=== PATIENT | female | born 1965 | race Caucasian/White ===

== ENCOUNTER → 2017-03-06 | Outpatient (CLI) | payer MEDICARE, MEDICAID ==
[~2017-03-06] MED LIST: ALPR1T PO; ALPR2TAB6 PO; ASPI-983 PO; CLIN300C3 PO; ENAL20TA PO; ENLP10T; ENLP10T PO; FRSM40T PO; GABA-490 PO; GBPN600T; HSCO125 SL; HYDR-3458 PO; HYOS0.127 SL; KCL20TCR PO; LEVO50TA PO; LEVOTHROID; MUPI22OI2 NSEACH; OMEP20TA2 PO; OXYC-109 PO; OXYC-197 PO; OXYC-465 PO; OXYC10TA8; OXYC10TA8 PO; OXYC1TAB17 PO; PANT40SU PO; PANT40TA PO; POLY255P PO; PSYL1PAC15 PO; RPN.25T; SCR1T PO; SCR1T1 PO; SUCR1TAB PO; SULF-222 PO; TOPI50TA13 PO; TOPI50TA2 PO
[2017-03-06 13:31] LABS: BASOPHILS % (AUTO) 0 % (0-10); EOSINOPHILS # (AUTO) 0.1 10^3/uL (0.0-0.3); EOSINOPHILS % (AUTO) 2 % (0-10); LYMPHOCYTES # (AUTO) 0.9 X 10^3 (1.0-4.0); LYMPHOCYTES % (AUTO) 31 % (12-44); MEAN CORPUSCULAR HEMOGLOBIN 33 PG (25-34); MEAN CORPUSCULAR HGB CONC 34 G/DL (32-36); MEAN CORPUSCULAR VOLUME 100 FL (80-99); MEAN PLATELET VOLUME 10.6 FL (7.4-10.4); MONOCYTES # (AUTO) 0.1 X 10^3 (0.0-1.0); MONOCYTES % (AUTO) 4 % (0-12); NEUTROPHILS # (AUTO) 1.8 X 10^3 (1.8-7.8); NEUTROPHILS % (AUTO) 63 % (42-75); PLATELET COUNT 170 10^3/uL (130-400); RED BLOOD COUNT 3.69 10^6/uL (4.35-5.85); RED CELL DISTRIBUTION WIDTH 13.2 % (10.0-14.5); WHITE BLOOD COUNT 2.9 10^3/uL (4.3-11.0)
[2017-03-06 13:54] LABS: ALANINE AMINOTRANSFERASE 16 U/L (0-55); ALBUMIN 3.8 G/DL (3.2-4.5); ANION GAP 6 MMOL/L (5-14); ASPARTATE AMINO TRANSFERASE 20 U/L (5-34); BILIRUBIN,TOTAL 0.5 MG/DL (0.1-1.0); BLOOD UREA NITROGEN 7 MG/DL (7-18); BUN/CREATININE RATIO 9; CALCIUM 8.6 MG/DL (8.5-10.1); CARBON DIOXIDE 23 MMOL/L (21-32); CHLORIDE 113 MMOL/L (98-107); CREATININE SERUM 0.78 MG/DL (0.60-1.30); GFR ESTIMATED > 60; GLUCOSE 106 MG/DL (70-105); POTASSIUM 3.8 MMOL/L (3.6-5.0); SODIUM 142 MMOL/L (135-145); TOTAL PROTEIN 6.4 G/DL (6.4-8.2)
[2017-03-06 14:13] LABS: THYROID STIMULATING HORMONE 4.74 UIU/ML (0.35-4.94)
== END ==
LOC: LAB 12:48
PROVIDERS: ATTEND Family Medicine
DX: E03.9 Hypothyroidism, unspecified (principal); T14.8 Other injury of unspecified body region
CPT/HCPCS: 36415; 80053; 82607; 84443; 85025

== ENCOUNTER → 2017-03-14 | Outpatient (CLI) | payer MEDICARE, MEDICAID ==
[2017-03-14 12:17] LABS: BASOPHILS % (AUTO) 1 % (0-10); EOSINOPHILS # (AUTO) 0.1 10^3/uL (0.0-0.3); EOSINOPHILS % (AUTO) 4 % (0-10); LYMPHOCYTES # (AUTO) 1.5 X 10^3 (1.0-4.0); LYMPHOCYTES % (AUTO) 46 % (12-44); MEAN CORPUSCULAR HEMOGLOBIN 32 PG (25-34); MEAN CORPUSCULAR HGB CONC 32 G/DL (32-36); MEAN CORPUSCULAR VOLUME 101 FL (80-99); MEAN PLATELET VOLUME 10.1 FL (7.4-10.4); MONOCYTES # (AUTO) 0.2 X 10^3 (0.0-1.0); MONOCYTES % (AUTO) 7 % (0-12); NEUTROPHILS # (AUTO) 1.4 X 10^3 (1.8-7.8); NEUTROPHILS % (AUTO) 42 % (42-75); PLATELET COUNT 176 10^3/uL (130-400); RED BLOOD COUNT 3.82 10^6/uL (4.35-5.85); RED CELL DISTRIBUTION WIDTH 13.2 % (10.0-14.5); WHITE BLOOD COUNT 3.3 10^3/uL (4.3-11.0)
== END ==
LOC: LAB 12:00
PROVIDERS: ATTEND Family Medicine
DX: D72.819 Decreased white blood cell count, unspecified (principal)
CPT/HCPCS: 36415; 85025

== ENCOUNTER 2017-04-16 10:57 | Outpatient (RCR) | payer MEDICARE, MEDICAID ==
[2017-04-16 11:06] LABS: BASOPHILS % (AUTO) 0 % (0-10); EOSINOPHILS # (AUTO) 0.1 10^3/uL (0.0-0.3); EOSINOPHILS % (AUTO) 2 % (0-10); LYMPHOCYTES # (AUTO) 1.4 X 10^3 (1.0-4.0); LYMPHOCYTES % (AUTO) 41 % (12-44); MEAN CORPUSCULAR HEMOGLOBIN 33 PG (25-34); MEAN CORPUSCULAR HGB CONC 32 G/DL (32-36); MEAN CORPUSCULAR VOLUME 101 FL (80-99); MEAN PLATELET VOLUME 9.6 FL (7.4-10.4); MONOCYTES # (AUTO) 0.2 X 10^3 (0.0-1.0); MONOCYTES % (AUTO) 5 % (0-12); NEUTROPHILS # (AUTO) 1.8 X 10^3 (1.8-7.8); NEUTROPHILS % (AUTO) 51 % (42-75); PLATELET COUNT 191 10^3/uL (130-400); RED CELL DISTRIBUTION WIDTH 13.5 % (10.0-14.5); WHITE BLOOD COUNT 3.6 10^3/uL (4.3-11.0)
[2017-04-16 11:36] LABS: ALANINE AMINOTRANSFERASE 20 U/L (0-55); ALBUMIN 3.9 GM/DL (3.2-4.5); ANION GAP 8 MMOL/L (5-14); ASPARTATE AMINO TRANSFERASE 22 U/L (5-34); BILIRUBIN,TOTAL 0.5 MG/DL (0.1-1.0); BLOOD UREA NITROGEN 9 MG/DL (7-18); BUN/CREATININE RATIO 11; CARBON DIOXIDE 22 MMOL/L (21-32); CHLORIDE 109 MMOL/L (98-107); CREATININE SERUM 0.83 MG/DL (0.60-1.30); GFR ESTIMATED > 60; GLUCOSE 91 MG/DL (70-105); LACTATE DEHYDROGENASE 161 U/L (125-220); POTASSIUM 4.3 MMOL/L (3.6-5.0); SODIUM 139 MMOL/L (135-145)
== END 2017-06-29 | disposition home or self-care (01) ==
LOC: ONC 10:57
PROVIDERS: ATTEND Internal Medicine Hematology & Oncology
DX: C85.95 Non-Hodgkin lymphoma, unspecified, lymph nodes of inguinal region and lower limb (principal); R53.82 Chronic fatigue, unspecified; B19.20 Unspecified viral hepatitis C without hepatic coma; E66.01 Morbid (severe) obesity due to excess calories; Z68.42 Body mass index [BMI] 45.0-49.9, adult; Z98.84 Bariatric surgery status; Z92.21 Personal history of antineoplastic chemotherapy
CPT/HCPCS: 36415; 80053; 83615; 85025; 99213

== ENCOUNTER → 2017-04-25 | Outpatient (CLI) | payer MEDICARE, MEDICAID ==
--- NOTE | 2017-04-25 14:47 | Diagnostic Imaging Report ---
PROCEDURE: MR imaging cervical spine without contrast. TECHNIQUE: Multiplanar, multisequence MR imaging of the cervical spine was performed without contrast. INDICATION: Neck pain. Fall. FINDINGS: There is straightening of the cervical spine. This could be related to muscle spasm. Alignment of the posterior spinal line otherwise is unremarkable. The vertebral body heights are preserved. There is disc desiccation at multiple levels. There is mild disc height loss at C5/C6 level. The spinal cord has normal caliber, contour and signal. No significant marrow signal abnormality. The foramen magnum and upper cervical canal are widely patent. C2/C3: There is a mild right paracentral disc spur complex with no spinal canal or foraminal stenosis. C3/C4: There is a central small spur disc complex with no spinal canal or foraminal stenosis. C4/C5: There is a minimal spur disc complex with no spinal canal or foraminal stenosis. C5/C6: There is a prominent disc spur complex associated with mild central canal stenosis reducing the eccentric canal AP dimension to 8.4 mm without spinal cord compression. The foramina are patent. There are, however, perineural cysts measuring 6 mm on the right and 4 mm on the left. C6/C7: No disc herniation. No spinal canal stenosis or foraminal narrowing. There are bilateral perineural cysts measuring up to 6 mm. C7/T1: No disc herniation. No spinal canal or foraminal stenosis. There are prominent perineural cysts at this level bilaterally measuring 1 cm within the neural foramina. IMPRESSION: There is mild spinal canal stenosis at C5/C6 level secondary to disc degenerative change. Dictated by: Dictated on workstation # [id number]
== END ==
LOC: RAD 08:18
PROVIDERS: ATTEND Family Medicine
DX: M50.322 Other cervical disc degeneration at C5-C6 level (principal); G89.4 Chronic pain syndrome
CPT/HCPCS: 72141

== ENCOUNTER → 2017-08-27 | Outpatient (CLI) | payer MEDICARE, MEDICAID ==
[2017-08-27 15:00] LABS: BASOPHILS % (AUTO) 1 % (0-10); EOSINOPHILS # (AUTO) 0.1 10^3/uL (0.0-0.3); EOSINOPHILS % (AUTO) 3 % (0-10); LYMPHOCYTES # (AUTO) 0.9 X 10^3 (1.0-4.0); LYMPHOCYTES % (AUTO) 30 % (12-44); MEAN CORPUSCULAR HEMOGLOBIN 33 PG (25-34); MEAN CORPUSCULAR HGB CONC 32 G/DL (32-36); MEAN CORPUSCULAR VOLUME 102 FL (80-99); MEAN PLATELET VOLUME 9.5 FL (7.4-10.4); MONOCYTES # (AUTO) 0.1 X 10^3 (0.0-1.0); MONOCYTES % (AUTO) 5 % (0-12); NEUTROPHILS # (AUTO) 1.8 X 10^3 (1.8-7.8); NEUTROPHILS % (AUTO) 62 % (42-75); PLATELET COUNT 182 10^3/uL (130-400); RED BLOOD COUNT 3.78 10^6/uL (4.35-5.85); RED CELL DISTRIBUTION WIDTH 12.9 % (10.0-14.5); WHITE BLOOD COUNT 2.9 10^3/uL (4.3-11.0)
[2017-08-27 15:16] LABS: ALANINE AMINOTRANSFERASE 21 U/L (0-55); ALBUMIN 3.7 GM/DL (3.2-4.5); ANION GAP 5 MMOL/L (5-14); ASPARTATE AMINO TRANSFERASE 25 U/L (5-34); BILIRUBIN,TOTAL 0.4 MG/DL (0.1-1.0); BLOOD UREA NITROGEN 13 MG/DL (7-18); BUN/CREATININE RATIO 16; CALCIUM 8.8 MG/DL (8.5-10.1); CARBON DIOXIDE 24 MMOL/L (21-32); CHLORIDE 110 MMOL/L (98-107); CREATININE SERUM 0.81 MG/DL (0.60-1.30); GFR ESTIMATED > 60; GLUCOSE 103 MG/DL (70-105); POTASSIUM 4.4 MMOL/L (3.6-5.0); SODIUM 139 MMOL/L (135-145); TOTAL PROTEIN 6.7 GM/DL (6.4-8.2)
[2017-08-28 07:08] LABS: VITAMIN D 25-HYDROXY (TOTAL) 34 ng/mL (30-100)
--- NOTE | 2017-08-28 18:23 | Diagnostic Imaging Report ---
Bilateral screening mammogram 2D views with tomosynthesis. The current study was also evaluated with a Computer Aided Detection (CAD) system. INDICATION: Screening. No current complaints stated on the questionnaire. COMPARISON: 06/15/15 FINDINGS: The breasts are composed of scattered fibroglandular densities. Occasional benign-appearing calcifications are seen. Allowing for technique and positional differences, no suspicious change is seen. IMPRESSION: No significant change. ACR BI-RADS Category 2: Benign findings. Result letter will be mailed to the patient. Note: At least 10% of breast cancer is not imaged by mammography. Dictated by: Dictated on workstation # [id number]
== END ==
LOC: RAD 14:22
PROVIDERS: ATTEND Family Medicine
DX: Z12.31 Encounter for screening mammogram for malignant neoplasm of breast (principal)
CPT/HCPCS: 36415; 77067; 80053; 82306; 82607; 84443; 85025

== ENCOUNTER 2017-10-28 13:47 | Outpatient (RCR) | payer MEDICARE, MEDICAID ==
[2017-10-28 14:15] LABS: BASOPHILS % (AUTO) 0 % (0-10); EOSINOPHILS # (AUTO) 0.1 10^3/uL (0.0-0.3); EOSINOPHILS % (AUTO) 1 % (0-10); HEMATOCRIT 41 % (35-52); HEMOGLOBIN 13.7 G/DL (11.5-16.0); LYMPHOCYTES # (AUTO) 1.2 X 10^3 (1.0-4.0); LYMPHOCYTES % (AUTO) 23 % (12-44); MEAN CORPUSCULAR HEMOGLOBIN 33 PG (25-34); MEAN CORPUSCULAR HGB CONC 34 G/DL (32-36); MEAN CORPUSCULAR VOLUME 97 FL (80-99); MEAN PLATELET VOLUME 9.6 FL (7.4-10.4); MONOCYTES # (AUTO) 0.2 X 10^3 (0.0-1.0); MONOCYTES % (AUTO) 4 % (0-12); NEUTROPHILS # (AUTO) 3.9 X 10^3 (1.8-7.8); NEUTROPHILS % (AUTO) 72 % (42-75); PLATELET COUNT 313 10^3/uL (130-400); RED BLOOD COUNT 4.16 10^6/uL (4.35-5.85); RED CELL DISTRIBUTION WIDTH 11.6 % (10.0-14.5); WHITE BLOOD COUNT 5.4 10^3/uL (4.3-11.0)
[2017-10-28 14:39] LABS: ALANINE AMINOTRANSFERASE 31 U/L (0-55); ALBUMIN 3.9 GM/DL (3.2-4.5); ALKALINE PHOSPHATASE 94 U/L (40-136); BILIRUBIN,TOTAL 0.5 MG/DL (0.1-1.0); BUN/CREATININE RATIO 22; CALCIUM 9.2 MG/DL (8.5-10.1); CARBON DIOXIDE 25 MMOL/L (21-32); CHLORIDE 104 MMOL/L (98-107); CREATININE SERUM 0.73 MG/DL (0.60-1.30); GFR ESTIMATED > 60; GLUCOSE 89 MG/DL (70-105); POTASSIUM 3.3 MMOL/L (3.6-5.0); SODIUM 139 MMOL/L (135-145); TOTAL PROTEIN 7.6 GM/DL (6.4-8.2)
== END 2018-01-26 | disposition home or self-care (01) ==
LOC: ONC 13:47
PROVIDERS: ATTEND Internal Medicine Hematology & Oncology
DX: C82.50 Diffuse follicle center lymphoma, unspecified site (principal); N92.0 Excessive and frequent menstruation with regular cycle; E66.01 Morbid (severe) obesity due to excess calories; R53.81 Other malaise; Z98.84 Bariatric surgery status; Z92.21 Personal history of antineoplastic chemotherapy; Z86.19 Personal history of other infectious and parasitic diseases
CPT/HCPCS: 36415; 80053; 85025; 99213

== ENCOUNTER → 2017-11-13 | Outpatient (CLI) | payer MEDICARE, MEDICAID ==
[2017-11-13 08:58] LABS: ALANINE AMINOTRANSFERASE 28 U/L (0-55); ALBUMIN 3.5 GM/DL (3.2-4.5); ALKALINE PHOSPHATASE 73 U/L (40-136); BILIRUBIN,TOTAL 0.6 MG/DL (0.1-1.0); BUN/CREATININE RATIO 10; CALCIUM 9.2 MG/DL (8.5-10.1); CARBON DIOXIDE 19 MMOL/L (21-32); CHLORIDE 112 MMOL/L (98-107); CHOLESTEROL 161 MG/DL (< 200); GFR ESTIMATED > 60; GLUCOSE 85 MG/DL (70-105); HDL CHOLESTEROL 80 MG/DL (40-60); POTASSIUM 3.8 MMOL/L (3.6-5.0); SODIUM 139 MMOL/L (135-145); TOTAL PROTEIN 6.7 GM/DL (6.4-8.2); TRIGLYCERIDES 66 MG/DL (<150); VLDL CHOLESTEROL 13 MG/DL (5-40)
== END ==
LOC: LAB 08:23
PROVIDERS: ATTEND Internal Medicine Cardiovascular Disease
DX: E78.2 Mixed hyperlipidemia (principal); I25.10 Atherosclerotic heart disease of native coronary artery without angina pectoris; I51.7 Cardiomegaly; I34.0 Nonrheumatic mitral (valve) insufficiency; C85.90 Non-Hodgkin lymphoma, unspecified, unspecified site; R79.89 Other specified abnormal findings of blood chemistry
CPT/HCPCS: 36415; 80053; 80061

== ENCOUNTER → 2017-12-02 | Outpatient (CLI) | payer MEDICARE, MEDICAID | LOC: LAB 08:41 | PROVIDERS: ATTEND Family Medicine | DX: E05.80 Other thyrotoxicosis without thyrotoxic crisis or storm (principal); E06.3 Autoimmune thyroiditis | CPT/HCPCS: 36415; 84436; 84443; 84481 ==

== ENCOUNTER → 2017-12-16 | Outpatient (CLI) | payer MEDICARE, MEDICAID | LOC: CARD 09:05 | PROVIDERS: ATTEND Nurse Practitioner Family | DX: R07.89 Other chest pain (principal) | CPT/HCPCS: 93005 ==

== ENCOUNTER 2018-03-19 12:47 | Outpatient (CLI) | payer MEDICARE, MEDICAID ==
[2018-03-19 13:54] LABS: BASOPHILS % (AUTO) 0 % (0-10); EOSINOPHILS # (AUTO) 0.1 10^3/uL (0.0-0.3); EOSINOPHILS % (AUTO) 3 % (0-10); HEMATOCRIT 39 % (35-52); HEMOGLOBIN 13.1 G/DL (11.5-16.0); LYMPHOCYTES # (AUTO) 1.6 X 10^3 (1.0-4.0); LYMPHOCYTES % (AUTO) 39 % (12-44); MEAN CORPUSCULAR HEMOGLOBIN 33 PG (25-34); MEAN CORPUSCULAR HGB CONC 33 G/DL (32-36); MEAN CORPUSCULAR VOLUME 97 FL (80-99); MONOCYTES # (AUTO) 0.3 X 10^3 (0.0-1.0); MONOCYTES % (AUTO) 7 % (0-12); NEUTROPHILS % (AUTO) 50 % (42-75); PLATELET COUNT 224 10^3/uL (130-400); RED BLOOD COUNT 4.03 10^6/uL (4.35-5.85); RED CELL DISTRIBUTION WIDTH 12.3 % (10.0-14.5)
[2018-03-19 14:12] LABS: ALANINE AMINOTRANSFERASE 49 U/L (0-55); ALBUMIN 4.1 GM/DL (3.2-4.5); ALKALINE PHOSPHATASE 95 U/L (40-136); BILIRUBIN,TOTAL 0.5 MG/DL (0.1-1.0); BUN/CREATININE RATIO 14; CALCIUM 9.2 MG/DL (8.5-10.1); CARBON DIOXIDE 22 MMOL/L (21-32); CHLORIDE 110 MMOL/L (98-107); CREATININE SERUM 0.95 MG/DL (0.60-1.30); GFR ESTIMATED > 60; GLUCOSE 77 MG/DL (70-105); POTASSIUM 4.1 MMOL/L (3.6-5.0); SODIUM 140 MMOL/L (135-145)
== END 2018-03-19 15:20 ==
LOC: ONC 12:47
PROVIDERS: ATTEND Internal Medicine Hematology & Oncology
DX: C82.50 Diffuse follicle center lymphoma, unspecified site (principal); N92.0 Excessive and frequent menstruation with regular cycle; E03.9 Hypothyroidism, unspecified; R53.81 Other malaise; E78.5 Hyperlipidemia, unspecified; I08.1 Rheumatic disorders of both mitral and tricuspid valves; E66.01 Morbid (severe) obesity due to excess calories; Z68.32 Body mass index [BMI] 32.0-32.9, adult; Z98.84 Bariatric surgery status; Z92.21 Personal history of antineoplastic chemotherapy; Z86.19 Personal history of other infectious and parasitic diseases
CPT/HCPCS: 36415; 80053; 85025; 99213

== ENCOUNTER → 2018-03-21 | Outpatient (CLI) | payer MEDICARE, MEDICAID ==
[~2018-03-21] MED LIST changes: +BARIUM SUSPENSION 2.1% (VANILLA SILQ) 450 ML PO ONE; +CATHETER FLUSH 10 ML SYR IV PRN; +IOHEXOL 350 MG/ML 100 ML (OMNIPAQUE 350) VIAL IV ONE; +NS 100 ML (IVPB) BAG IV ONE
--- NOTE | 2018-03-21 12:49 | Diagnostic Imaging Report ---
PROCEDURE: CT chest with contrast, CT abdomen and pelvis with and without contrast. TECHNIQUE: Pre and post intravenous contrast axial imaging of the abdomen and pelvis and postcontrast axial imaging of the chest were performed. INDICATION: Non-Hodgkin's lymphoma. Patient currently complains of palpable bumps in the right upper and left lower quadrant of the abdomen. COMPARISON: Comparison is made with prior CT from 03/25/2014 of the chest, abdomen, and pelvis as well as CT abdomen from 05/07/2016. CT CHEST: No axillary lymphadenopathy is identified. No mediastinal or hilar lymphadenopathy is identified. Ascending thoracic aorta is slightly prominent measuring 3.9 cm AP x 3.7 cm transverse. This compares with approximately 3.7 cm x 3.6 cm on prior. No pericardial or pleural fluid is identified. No pulmonary infiltrates, nodules, or masses are seen. IMPRESSION: Overall stable CT of the chest when compared with examination from 03/25/2014. CT ABDOMEN AND PELVIS: No discrete liver mass is identified. Intrahepatic and extrahepatic bile ducts are prominent. The extrahepatic duct at the level of the pancreatic head measures 16 mm transverse compared with 14 mm on prior. No definite obstructing lesion is seen. The pancreas and spleen are unremarkable. No adrenal mass is detected. The kidneys are unremarkable. The aorta is nonaneurysmal. No definite central retroperitoneal or mesenteric lymphadenopathy is seen. There are postsurgical changes in the region of the stomach. Small and large bowel loops are normal in caliber. No obstruction is seen. There is no ascites. Moderate stool in the colon is noted. The bladder and uterus are unremarkable. Small lymph nodes in the inguinal regions are noted bilaterally. No iliac lymphadenopathy is seen. IMPRESSION: 1. There continues to be intrahepatic and extrahepatic biliary ductal dilatation. The degree of extrahepatic dilatation has increased slightly since the exam from April 2016 and February 2014. Extrahepatic bile duct is 16 mm compared with 14 mm. MRCP may be useful for further evaluation if clinically indicated. Remainder of the study is unremarkable. No abdominal or pelvic lymphadenopathy is seen. No acute features are detected. Dictated by: Dictated on workstation # [id number]
== END ==
LOC: RAD 11:13
PROVIDERS: ATTEND Internal Medicine Hematology & Oncology
DX: C85.90 Non-Hodgkin lymphoma, unspecified, unspecified site (principal); K83.8 Other specified diseases of biliary tract
CPT/HCPCS: 71260; 74178

== ENCOUNTER 2018-03-24 14:40 | Outpatient (RCR) | payer MEDICARE, MEDICAID ==
[~2018-03-24 14:40] MED LIST changes: -BARIUM SUSPENSION 2.1% (VANILLA SILQ) 450 ML PO ONE; -CATHETER FLUSH 10 ML SYR IV PRN; -IOHEXOL 350 MG/ML 100 ML (OMNIPAQUE 350) VIAL IV ONE; -NS 100 ML (IVPB) BAG IV ONE; -OXYC-197 PO; +OXYC1TAB87 PO
[2018-04-07] MEDS ORDERED: LEVO175T5 PO (11:31)
[2018-04-07] MEDS ORDERED: ASPI-586 PO (11:31)
[2018-04-07] MEDS ORDERED: PANT40TA3 PO (11:31)
[2018-04-07] MEDS ORDERED: MULT-1021 PO (11:35)
[2018-04-07] MEDS ORDERED: OXYC10TA7 PO (11:35)
[2018-04-07] MEDS ORDERED: CHOL10003 PO (11:35)
[2018-04-07] MEDS ORDERED: CYAN50006 SL (11:35)
[2018-04-07] MEDS ORDERED: OXYC1TAB12 PO (12:57)
[2018-04-14] MEDS ORDERED: OXYC-465 PO (13:47)
[2018-04-15] MEDS ORDERED: OXYC-465 PO (07:12)
[2018-04-16] MEDS ORDERED: CYCL10TA9 PO (18:10)
== END 2018-06-22 | disposition home or self-care (01) ==
LOC: ONC 14:40
PROVIDERS: ATTEND Internal Medicine Hematology & Oncology
DX: C82.50 Diffuse follicle center lymphoma, unspecified site (principal); E66.01 Morbid (severe) obesity due to excess calories; Z92.21 Personal history of antineoplastic chemotherapy; K82.8 Other specified diseases of gallbladder; I10 Essential (primary) hypertension; K64.4 Residual hemorrhoidal skin tags; K64.8 Other hemorrhoids; E03.9 Hypothyroidism, unspecified; R53.82 Chronic fatigue, unspecified; N92.0 Excessive and frequent menstruation with regular cycle; Z98.84 Bariatric surgery status; Z86.19 Personal history of other infectious and parasitic diseases
CPT/HCPCS: 99213

== ENCOUNTER 2018-03-27 10:28 | Outpatient (RCR) | payer MEDICARE, MEDICAID ==
[~2018-03-27 10:28] MED LIST changes: +OXYC-197 PO; -OXYC1TAB87 PO
[2018-04-07] MEDS ORDERED: LEVO175T5 PO (11:31)
[2018-04-07] MEDS ORDERED: ASPI-586 PO (11:31)
[2018-04-07] MEDS ORDERED: PANT40TA3 PO (11:31)
[2018-04-07] MEDS ORDERED: CYAN50006 SL (11:35)
[2018-04-07] MEDS ORDERED: MULT-1021 PO (11:35)
[2018-04-07] MEDS ORDERED: CHOL10003 PO (11:35)
[2018-04-07] MEDS ORDERED: OXYC10TA7 PO (11:35)
[2018-04-07] MEDS ORDERED: OXYC-202 PO (12:57)
[2018-04-15] MEDS ORDERED: OXYC-465 PO (07:12)
[2018-04-16] MEDS ORDERED: CYCL10TA9 PO (18:10)
== END 2018-04-10 13:30 | disposition home or self-care (01) ==
PROVIDERS: ATTEND Physician Assistant
DX: M54.12 Radiculopathy, cervical region (principal)

== ENCOUNTER 2018-04-07 11:07 | Outpatient (CLI) | payer MEDICARE, MEDICAID ==
[~2018-04-07] VITALS: Ht 175.3 cm; Wt 104.8 kg
[2018-04-07 11:24] VITALS: BP 104/72
[2018-04-07] MEDS ORDERED: PANT40TA3 PO (11:31)
[2018-04-07] MEDS ORDERED: ASPI-586 PO (11:31)
[2018-04-07] MEDS ORDERED: LEVO175T5 PO (11:31)
[2018-04-07] MEDS ORDERED: MULT-1021 PO (11:35)
[2018-04-07] MEDS ORDERED: CYAN50006 SL (11:35)
[2018-04-07] MEDS ORDERED: OXYC10TA7 PO (11:35)
[2018-04-07] MEDS ORDERED: CHOL10003 PO (11:35)
[2018-04-07] MEDS ORDERED: OXYC-202 PO (12:57)
== END 2018-04-07 11:50 | disposition home or self-care (01) ==
LOC: PREOP 11:07
PROVIDERS: ATTEND Orthopaedic Surgery
DX: Z01.818 Encounter for other preprocedural examination (principal); Z11.2 Encounter for screening for other bacterial diseases
CPT/HCPCS: 87081

== ENCOUNTER → 2018-04-10 | Outpatient (CLI) | payer MEDICARE, MEDICAID ==
[~2018-04-10] MED LIST changes: +ASPI-586 PO; +CHOL10003 PO; +CYAN50006 SL; +CYCL10TA9 PO; +LEVO175T5 PO; +MULT-1021 PO; +OXYC-202 PO; +OXYC10TA7 PO; +PANT40TA3 PO
--- NOTE | 2018-04-10 16:02 | Diagnostic Imaging Report ---
INDICATION: Screening for osteoporosis. EXAMINATION: DEXA scan. COMPARISON: There are no recent exams available for comparison. FINDINGS: The bone mineral density of the hips and spine was measured. The T-score for the spine is -1.6. The T-score for the left hip is -1.5. These values do indicate osteopenia. The T-score for the right hip is -0.9. This value falls at the low end of normal. IMPRESSION: The bone mineral density of the right hip is within normal limits but there is osteopenia of the left hip and spine. Dictated by: Dictated on workstation # [id number]
== END ==
LOC: RAD 08:46
PROVIDERS: ATTEND Internal Medicine Endocrinology, Diabetes & Metabolism
DX: Z13.820 Encounter for screening for osteoporosis (principal); M85.88 Other specified disorders of bone density and structure, other site; Z78.0 Asymptomatic menopausal state
CPT/HCPCS: 77080

== ENCOUNTER 2018-04-14 10:00 | Inpatient (IN) | payer MEDICARE, MEDICAID ==
[~2018-04-14] VITALS: Ht 175.3 cm; Wt 104.8 kg
[~2018-04-14 10:00] MED LIST changes: -CYCL10TA9 PO
[2018-04-14 10:10] VITALS: BP 128/85
[2018-04-14] MEDS ORDERED: LACTATED RINGERS 1,000 ML IV PRN (10:21)
[2018-04-14] MEDS ORDERED: BACITRACIN 100,000 UNIT/NS 1000 ML POUR BOTTLE IR ONE ×2 (10:30)
[2018-04-14] MEDS ORDERED: ceFAZolin 2 GM IV Premixed 50 ML IV ONE (10:30)
[2018-04-14] MEDS ORDERED: proPOfol 200 MG/20 ML (DIPRIVAN) VIAL IV ONE (10:43)
[2018-04-14] MEDS ORDERED: ONDANSETRON 4 MG/2 ML (SDV) Z0FRAN ONE (10:43)
[2018-04-14] MEDS ORDERED: ROCURONIUM 10 MG/ML 5 ML SYRINGE IV ONE (10:43)
[2018-04-14] MEDS ORDERED: SUCCINYLCHOLINE INJ 100 MG/5 ML SYR ONE (10:43)
[2018-04-14] MEDS ORDERED: DEXAMETHASONE 10 MG/ML (DECADRON) 1 ML VIAL ONE (10:43)
[2018-04-14] MEDS ORDERED: HYDROmorphone 1 MG/ML (DILAUDID) 1 ML SYRINGE ONE ×3 (10:44→12:56)
[2018-04-14] MEDS ORDERED: CATHETER FLUSH 10 ML SYR IV PRN (10:45)
[2018-04-14] MEDS ORDERED: MIDAZOLAM 2 MG/2 ML (VERSED) VIAL ONE (10:47)
[2018-04-14] MEDS ORDERED: PROPOFOL INJECTION 50 ML IV ONE (10:53)
[2018-04-14 10:58] LABS: AMPHETAMINE SCREEN, URINE NEGATIVE (NEGATIVE); BARBITURATE SCREEN URINE NEGATIVE (NEGATIVE); BENZODIAZEPINES SCREEN URINE POSITIVE (NEGATIVE); CANNABINOID SCREEN, URINE NEGATIVE (NEGATIVE); COCAINE SCREEN URINE NEGATIVE (NEGATIVE); METHADONE STAT NEGATIVE (NEGATIVE); METHAMPHETAMINE SCREEN URINE S NEGATIVE (NEGATIVE); OPIATE SCREEN URINE NEGATIVE (NEGATIVE); OXYCODONE STAT POSITIVE (NEGATIVE); TRICYCLIC ANTIDEPRESSANTS SCRE NEGATIVE (NEGATIVE)
[2018-04-14 10:59] LABS: PROPOXYPHENE STAT NEGATIVE (NEGATIVE)
[2018-04-14] MEDS ORDERED: SEVOFLURANE (ULTANE) 15 ML INHAL SOLN ONE ×2 (11:03→12:12)
[2018-04-14] MEDS ORDERED: LIDOCAINE JELLY 2% (XYLOCAINE) 5 ML TUBE ONE (11:13)
[2018-04-14 12:00] VITALS: BP 121/59
[2018-04-14] MEDS ORDERED: BISACODYL 5 MG (DULCOLAX) TABLET PO PRN (12:30)
[2018-04-14] MEDS ORDERED: DOCUSATE SODIUM 100 MG (COLACE) CAP PO PRN (12:30)
[2018-04-14] MEDS ORDERED: ONDANSETRON 4 MG/2 ML (SDV) Z0FRAN IV PRN (12:30)
[2018-04-14] MEDS ORDERED: ACETAMINOPHEN 325 MG TABLET PO PRN (12:30)
[2018-04-14] MEDS ORDERED: BISACODYL 10 MG SUPP (DULCOLAX) PR PRN (12:30)
[2018-04-14] MEDS: HYDROmorphone 1 MG/ML (DILAUDID) 1 ML SYRINGE IV PRN ×4 (12:38→13:08)
--- NOTE | 2018-04-14 12:38 | Diagnostic Imaging Report ---
Indication: Cervical spine fusion. Fluoroscopy was provided in the OR for Dr. Liz for ACDF. 7 seconds of fluoroscopy was utilized. Images demonstrate anterior plate and screws transfixing the C5-6 level. Impression: Fluoroscopy for C5-6 ACDF. Dictated by: Dictated on workstation # [id number]
[2018-04-14] MEDS ORDERED: MEPERIDINE (DEMEROL) INJ 50 MG/ML IVP PRN (12:45)
[2018-04-14] MEDS ORDERED: ONDANSETRON 4 MG/2 ML (SDV) Z0FRAN IVP PRN (12:45)
[2018-04-14] MEDS ORDERED: OXYC-465 PO (13:47)
[2018-04-14] MEDS: morphine INJ 10 MG/ML 1ML (SYR OR VIAL) IM PRN ×3 (13:57→20:48)
[2018-04-14] MEDS: CYCLOBENZAPRINE 10 MG (FLEXERIL) TAB PO PRN ×2 (13:58→22:12)
[2018-04-14] MEDS: oxyCODONE/APAP 5/325MG (PERCOCET 5) TABLET PO PRN ×3 (13:58→23:36)
--- OUTSIDE RECORDS SUMMARY | 2018-04-14 13:58 | XMS REPORT | Clinical Summary ---
Author Author [facility] Organization [facility] Address Unknown Phone Unavailable Care Team Providers [employer] Supervisor Name Role Phone Sarmad Mann RN Unavailable Ankit Marlow MD PCP Source Comments Some departments are not documenting in the electronic medical record. If you do not see the information that you expected, contact Release of Information in the Health Information Management department at [phone] for further assistance in locating additional records.[facility] Allergies Active Allergy Reactions Severity Noted Date Comments Fentanyl HEADACHE Low 12/11/2016 Current Medications Prescription Sig. Disp. Refills Start End Date Status Date oxyCODONE/acetaminophen Take 1 tablet by mouth Active (PERCOCET; ENDOCET) every 6 hours as needed 10/325 mg tablet for Pain gabapentin (NEURONTIN) Take 400 mg by mouth Active 400 mg capsule every 8 hours. ALPRAZolam(+) (XANAX) 2 Take 2 mg by mouth at Active mg tablet bedtime as needed for Anxiety. CALCIUM CARBONATE Take 400 mg by mouth. Active (CALCIUM 500 PO) pantoprazole DR Take 40 mg by mouth Active (PROTONIX) 40 mg tablet daily. aspirin 81 mg chewable Chew 81 mg by mouth Active tablet daily. Take with food. levothyroxine (SYNTHROID) Take 88 mcg by mouth Active 88 mcg tablet daily 30 minutes before breakfast. furosemide (LASIX) 40 mg Take 40 mg by mouth every Active tablet morning. potassium chloride SR Take 20 mEq by mouth Active (K-DUR) 20 mEq tablet daily. Take with a meal and a full glass of water. polyethylene glycol 3350 Take 17 g by mouth daily. Active (MIRALAX) 17 g packet MULTIVITAMINS WITH Take by mouth. Active FLUORIDE (MULTI-VITAMIN PO) cholecalciferol (VITAMIN Take 1,000 Units by mouth Active D-3) 1,000 units tablet daily. cyanocobalamin(+) Take 100 mcg by mouth Active (VITAMIN B-12) 100 mcg daily. tablet Active Problems No known active problems Social History Tobacco Use Types Packs/Day Years Used Date Never Smoker Smokeless Tobacco: Never Used Sex Assigned at Date Recorded Not on file Last Filed Vital Signs Vital Sign Reading Time Taken Blood Pressure 114/82 06/25/2017 8:53 AM CDT Pulse 62 06/25/2017 8:53 AM CDT Temperature - - Respiratory Rate - - Oxygen Saturation 99% 06/25/2017 8:53 AM CDT Inhaled Oxygen - - Concentration Weight 92.5 kg (204 lb) 06/25/2017 8:53 AM CDT Height 170.2 cm (5' 7") 06/25/2017 8:53 AM CDT Body Mass Index 31.95 06/25/2017 8:53 AM CDT Plan of Treatment Health Maintenance Due Date Last Done Comments PHYSICAL (COMPREHENSIVE) 1972 EXAM PERTUSSIS VACCINE 1976 HIV SCREENING 1980 TETANUS VACCINE 1982 CERVICAL CANCER SCREENING 12/24/1995 BREAST CANCER SCREENING 2005 COLORECTAL CANCER 12/24/2015 SCREENING SHINGLES RECOMBINANT 12/24/2015 VACCINE (1 of 2) INFLUENZA VACCINE 06/30/2018 07/21/2004 Results Not on filefrom Last 3 Months
--- OUTSIDE RECORDS SUMMARY | 2018-04-14 14:01 | XMS REPORT | Continuity of Care Document ---
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 THYROID NODULE 08/08/2016 OANH CHANDLER MD Ot I10 ESSENTIAL (PRIMARY) HYPERTENSION 08/08/2016 OANH CHANDLER MD Ot M51.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 DISC DEGENERATION, 08/08/2016 OANH CHANDLER MD Ot M79.7 FIBROMYALGIA 08/08/2016 OANH CHANDLER MD Ot Z23 ENCOUNTER FOR IMMUNIZATION 08/08/2016 OANH CHANDLER MD Ot Z87.891 PERSONAL HISTORY OF NICOTINE DEPENDENCE 08/08/2016 OANH CHANDLER MD Ot Z92.21 PERSONAL HISTORY OF ANTINEOPLASTIC CHEMO 08/08/2016 OANH CHANDLER MD Ot Z98.84 BARIATRIC SURGERY STATUS 08/08/2016 OANH CHANDLER MD Ot B19.20 UNSPECIFIED VIRAL HEPATITIS C WITHOUT HE 08/08/2016 OANH CHANDLER MD Ot 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, UNSPECIFIED 08/08/2016 OANH CHANDLER MD Ot E04.1 NONTOXIC SINGLE THYROID NODULE 08/08/2016 OANH CHANDLER MD Ot I10 ESSENTIAL (PRIMARY) HYPERTENSION 08/08/2016 OANH CHANDLER MD Ot M51.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 DISC DEGENERATION, 08/08/2016 OANH CHANDLER MD Ot M79.7 FIBROMYALGIA 08/08/2016 OANH CHANDLER MD Ot Z23 ENCOUNTER FOR IMMUNIZATION 08/08/2016 OANH CHANDLER MD Ot Z87.891 PERSONAL HISTORY OF NICOTINE DEPENDENCE 08/08/2016 OANH CHANDLER MD Ot Z92.21 PERSONAL HISTORY OF ANTINEOPLASTIC CHEMO 08/08/2016 ONAH CHANDLER MD, Ot Z98.84 BARIATRIC SURGERY STATUS 08/11/2016 OANH CHANDLER MD, Ot B19.20 UNSPECIFIED VIRAL HEPATITIS C WITHOUT HE 08/11/2016 OANH CHANDLER MD, Ot 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, UNSPECIFIED 08/11/2016 OANH CHANDLER MD, Ot E04.1 NONTOXIC SINGLE THYROID NODULE 08/11/2016 OANH CHANDLER MD Ot I10 ESSENTIAL (PRIMARY) HYPERTENSION 08/11/2016 OANH CHANDLER MD, Ot M51.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 DISC DEGENERATION, 08/11/2016 OANH CHANDLER MD, Ot M79.7 FIBROMYALGIA 08/11/2016 OANH CHANDLER MD, Ot Z23 ENCOUNTER FOR IMMUNIZATION 08/11/2016 OANH CHANDLER MD, Ot Z87.891 PERSONAL HISTORY OF NICOTINE DEPENDENCE 08/11/2016 OANH CHANDLER MD, Ot Z92.21 PERSONAL HISTORY OF ANTINEOPLASTIC CHEMO 08/11/2016 OANH CHANDLER MD, Ot Z98.84 BARIATRIC SURGERY STATUS 08/17/2016 WILL JEFFERS COATING OPERATOR Ot B19.20 UNSPECIFIED VIRAL HEPATITIS C WITHOUT HE 08/28/2016 WILL JEFFERS COATING OPERATOR Ot B19.20 UNSPECIFIED VIRAL HEPATITIS C WITHOUT HE 09/11/2016 HUEY DOTSON, STEPAN Knowles Ot R00.2 PALPITATIONS 09/11/2016 KIMMIE PALMER MD, Ot B19.20 UNSPECIFIED VIRAL HEPATITIS C WITHOUT HE 09/11/2016 KIMMIE PALMER MD, Ot 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, UNSP, NODES OF ING RE 09/11/2016 KIMMIE PALMER MD, Ot E66.01 MORBID (SEVERE) OBESITY DUE TO EXCESS CA 09/11/2016 KIMMIE PALMER MD Ot R53.82 CHRONIC FATIGUE, UNSPECIFIED 09/11/2016 KIMMIE PALMER MD, Ot Z68.42 BODY MASS INDEX (BMI) 45.0-49.9, ADULT 09/11/2016 KIMMIE PALMER MD, Ot Z92.21 PERSONAL HISTORY OF ANTINEOPLASTIC CHEMO 09/11/2016 KIMMIE PALMER MD, Ot Z98.84 BARIATRIC SURGERY STATUS 09/11/2016 HOLLEY DOTSON, PRIYA Waller Ot E86.0 DEHYDRATION 09/11/2016 PRIYA BABB MD Ot E89.0 POSTPROCEDURAL HYPOTHYROIDISM 09/11/2016 PRIYA BABB MD Ot I25.10 ATHSCL HEART DISEASE OF [place] CORONARY 09/11/2016 PRIYA BABB MD Ot I95.9 HYPOTENSION, UNSPECIFIED 09/11/2016 PRIYA BABB MD Ot R07.89 OTHER CHEST PAIN 09/11/2016 PRIYA BABB MD Ot Z79.899 OTHER [facility] (CURRENT) DRUG THERAPY 10/10/2016 PRIYA BABB MD Ot E86.0 DEHYDRATION 10/10/2016 PRIYA BABB MD Ot E89.0 POSTPROCEDURAL HYPOTHYROIDISM 10/10/2016 PRIYA BABB MD Ot I25.10 ATHSCL HEART DISEASE OF [place] CORONARY 10/10/2016 PRIYA BABB MD Ot I95.9 HYPOTENSION, UNSPECIFIED 10/10/2016 PRIYA BABB MD Ot R07.89 OTHER CHEST PAIN 10/10/2016 PRIYA BABB MD Ot Z79.899 OTHER EMR TRAINER (CURRENT) DRUG THERAPY 10/17/2016 PRIYA BABB MD Ot E86.0 DEHYDRATION 10/17/2016 PRIYA BABB MD Ot E89.0 POSTPROCEDURAL HYPOTHYROIDISM 10/17/2016 PRIYA BABB MD Ot I25.10 ATHSCL HEART DISEASE OF [place] CORONARY 10/17/2016 PRIYA BABB MD Ot I95.9 HYPOTENSION, UNSPECIFIED 10/17/2016 PRIYA BABB MD Ot R07.89 OTHER CHEST PAIN 10/17/2016 PRIYA BABB MD Ot Z79.899 OTHER EMR TRAINER (CURRENT) DRUG THERAPY 03/06/2017 STEPAN ARZATE MD R Ot E03.9 HYPOTHYROIDISM, UNSPECIFIED 03/08/2017 STEPAN ARZATE MD R Ot E03.9 HYPOTHYROIDISM, UNSPECIFIED 03/15/2017 STEPAN ARZATE MD R Ot D72.819 DECREASED WHITE BLOOD CELL COUNT, UNSPEC 03/26/2017 STEPAN ARZATE MD R Ot E03.9 HYPOTHYROIDISM, UNSPECIFIED 03/26/2017 STEPAN ARZATE MD R Ot T14.8 OTHER INJURY OF UNSPECIFIED BODY REGION 04/04/2017 STEPAN ARZATE MD R Ot D72.819 DECREASED WHITE BLOOD CELL COUNT, UNSPEC 04/05/2017 STEPAN ARZATE MD Ot E03.9 HYPOTHYROIDISM, UNSPECIFIED 04/05/2017 STEPAN ARZATE MD Ot T14.8 OTHER INJURY OF UNSPECIFIED BODY REGION 04/12/2017 STEPAN ARZATE MD Ot D72.819 DECREASED WHITE BLOOD CELL COUNT, UNSPEC 04/16/2017 STEPAN ARZATE MD Ot 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70 UNSPECIFIED VIRAL HEPATITIS C WITHOUT HE 04/16/2017 KIMMIE PALMER MD Ot 202.85 LYMPHOMAS NEC INGUIN 04/16/2017 KIMMIE PALMER MD Ot 278.01 MORBID OBESITY 04/16/2017 KIMMIE PALMER MD Ot 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0 HEADACHE 04/16/2017 STEPAN ARZATE MD R Ot V72.81 FJLA-PVS-VHCESVPOR CARDIOVASCULAR 04/16/2017 STEPAN ARZATE MD R Ot V76.12 OTH SCREEN MAMMO-MALIGN NEOPLASM OF [place] 04/16/2017 STEPAN ARZATE MD R Ot V72.81 HKCD-GYR-VYPUXFAEL CARDIOVASCULAR 04/16/2017 STEPAN ARZATE MD R Ot R51 HEADACHE 04/16/2017 STEPAN ARZATE MD R Ot R00.2 PALPITATIONS 04/16/2017 STEPAN ARZATE MD R Ot E04.1 NONTOXIC SINGLE THYROID NODULE 04/16/2017 Ot D64.9 ANEMIA, UNSPECIFIED 04/16/2017 Ot R53.1 WEAKNESS 04/16/2017 Ot Z98.89 OTHER SPECIFIED POSTPROCEDURAL STATES 04/16/2017 STEPAN ARZATE MD R Ot B19.20 UNSPECIFIED VIRAL HEPATITIS C WITHOUT HE 04/16/2017 STEPAN ARZATE MD R Ot K83.8 OTHER SPECIFIED DISEASES OF BILIARY TRAC 04/16/2017 STEPAN ARZATE MD R Ot B19.20 UNSPECIFIED VIRAL HEPATITIS C WITHOUT HE 04/16/2017 WILL JEFFERS APRN Ot E04.1 NONTOXIC SINGLE THYROID NODULE 04/16/2017 KIMMIE PALMER MD Ot B19.20 UNSPECIFIED VIRAL HEPATITIS C WITHOUT HE 04/16/2017 KIMMIE PALMER MD Ot 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, UNSP, NODES OF ING RE 04/16/2017 KIMMIE PALMER MD Ot E66.01 MORBID (SEVERE) OBESITY DUE TO EXCESS CA 04/16/2017 KIMMIE PALMER MD Ot R53.82 CHRONIC FATIGUE, UNSPECIFIED 04/16/2017 KIMMIE PALMER MD Ot Z68.42 BODY MASS INDEX (BMI) 45.0-49.9, ADULT 04/16/2017 KIMMIE PALMER MD Ot Z92.21 PERSONAL HISTORY OF ANTINEOPLASTIC CHEMO 04/16/2017 KIMMIE PALMER MD Ot Z98.84 BARIATRIC SURGERY STATUS 04/16/2017 WILL JEFFERS ALLISON Ot B19.20 UNSPECIFIED VIRAL HEPATITIS C WITHOUT HE 04/16/2017 STEPAN ARZATE MD Ot E03.9 HYPOTHYROIDISM, UNSPECIFIED 04/16/2017 STEPAN ARZATE MD Ot T14.8 OTHER INJURY OF UNSPECIFIED BODY REGION 04/16/2017 STEPAN ARZATE MD, Ot D72.819 DECREASED WHITE BLOOD CELL COUNT, UNSPEC 04/17/2017 KIMMIE PALMER MD Ot B19.20 UNSPECIFIED VIRAL HEPATITIS C WITHOUT HE 04/17/2017 KIMMIE PALMER MD, Ot 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, UNSP, NODES OF ING RE 04/17/2017 KIMMIE PALMER MD Ot E66.01 MORBID (SEVERE) OBESITY DUE TO EXCESS CA 04/17/2017 KIMMIE PALMER MD Ot R53.82 CHRONIC FATIGUE, UNSPECIFIED 04/17/2017 KIMMIE PALMER MD Ot Z68.42 BODY MASS INDEX (BMI) 45.0-49.9, ADULT 04/17/2017 KIMMIE PALMER MD Ot Z92.21 PERSONAL HISTORY OF ANTINEOPLASTIC CHEMO 04/17/2017 KIMMIE PALMER MD Ot Z98.84 BARIATRIC SURGERY STATUS 04/24/2017 STEPAN ARZATE MD Ot 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 04/24/2017 STEPAN ARZATE MD Ot 401.9 HYPERTENSION NOS 04/24/2017 ESTER MICHAEL DO S Ot 278.00 OBESITY, NOS 04/24/2017 ESTER MICHAEL DO S Ot 625.9 FEM GENITAL SYMPTOMS NOS 04/24/2017 ESTER MICHAEL DO S Ot 789.00 ABDOMINAL PAIN, UNSPECIFIED SITE 04/24/2017 ESTER MICHAEL DO S Ot 793.5 NOSP (ABN) FINDINGS ON RADIOLOGICAL OT 04/24/2017 ESTER MICHAEL DO S Ot 793.89 OTH (ABN) FINDINGS ON RADIOLOGICAL EXAMI 04/24/2017 ESTER MICHAEL DO Ot V72.31 ROUTINE GYNECOLOGICAL EXAMINATION 04/24/2017 FENECH DO, ESTER S Ot V76.12 OTH SCREEN MAMMO-MALIGN NEOPLASM OF [place] 04/24/2017 KIMMIE PALMER MD Ot 070.70 UNSPECIFIED VIRAL HEPATITIS C WITHOUT HE 04/24/2017 KIMMIE PALMER MD Ot 202.85 LYMPHOMAS NEC INGUIN 04/24/2017 KIMMIE PALMER MD Ot 278.01 MORBID OBESITY 04/24/2017 KIMMIE PALMER MD Ot 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 04/24/2017 KIMMIE PALMER MD Ot 401.9 HYPERTENSION NOS 04/24/2017 KIMMIE PALMER MD Ot 455.0 INT HEMORRHOID W/O COMPL 04/24/2017 KIMMIE PALMER MD Ot 455.3 EXT HEMORRHOID W/O COMPL 04/24/2017 KIMMIE PALMER MD Ot 564.00 UNSPEC CONSTIPATION 04/24/2017 KIMMIE PALMER MD Ot V58.69 OTH MED,LT,CURRENT USE 04/24/2017 KIMMIE PALMER MD Ot V87.41 PERSONAL HISTORY OF ANTINEOPLASTIC CHEMO 04/24/2017 KIMMIE PALMER MD Ot 202.80 OTH LYMPHOMAS EXTRANODAL SOLID ORGAN U 04/24/2017 HUEY DOTSON, STEPAN R Ot 786.2 COUGH 04/24/2017 HUEY DOTSON, STEPAN R Ot 786.30 HEMOPTYSIS, UNSPECIFIED 04/24/2017 STEPAN ARZATE MD R Ot 784.0 HEADACHE 04/24/2017 STEPAN ARZATE MD R Ot V72.81 QFTH-MFB-YIGAFDGED CARDIOVASCULAR 04/24/2017 STEPAN ARZATE MD Ot V76.12 OTH SCREEN MAMMO-MALIGN NEOPLASM OF [place] 04/24/2017 STEPAN ARZATE MD R Ot V72.81 YGZP-DCQ-NJOSAHVCF CARDIOVASCULAR 04/24/2017 STEPAN ARZATE MD R Ot R51 HEADACHE 04/24/2017 STEPAN ARZATE MD R Ot R00.2 PALPITATIONS 04/24/2017 STEPAN ARZATE MD R Ot E04.1 NONTOXIC SINGLE THYROID NODULE 04/24/2017 Ot D64.9 ANEMIA, UNSPECIFIED 04/24/2017 Ot R53.1 WEAKNESS 04/24/2017 Ot Z98.89 OTHER SPECIFIED POSTPROCEDURAL STATES 04/24/2017 STEPAN ARZATE MD Ot B19.20 UNSPECIFIED VIRAL HEPATITIS C WITHOUT HE 04/24/2017 STEPAN ARZATE MD Ot K83.8 OTHER SPECIFIED DISEASES OF BILIARY TRAC 04/24/2017 STEPAN ARZATE MD Ot B19.20 UNSPECIFIED VIRAL HEPATITIS C WITHOUT HE 04/24/2017 WILL JEFFERS APRN Ot E04.1 NONTOXIC SINGLE THYROID NODULE 04/24/2017 KIMMIE PALMER MD Ot B19.20 UNSPECIFIED VIRAL HEPATITIS C WITHOUT HE 04/24/2017 KIMMIE PALMER MD Ot 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, UNSP, NODES OF ING RE 04/24/2017 KIMMIE PALMER MD, Ot E66.01 MORBID (SEVERE) OBESITY DUE TO EXCESS CA 04/24/2017 KIMMIE PALMER MD, Ot R53.82 CHRONIC FATIGUE, UNSPECIFIED 04/24/2017 KIMMIE PALMER MD, Ot Z68.42 BODY MASS INDEX (BMI) 45.0-49.9, ADULT 04/24/2017 KIMMIE PALMER MD Ot Z92.21 PERSONAL HISTORY OF ANTINEOPLASTIC CHEMO 04/24/2017 KIMMIE PALMER MD Ot Z98.84 BARIATRIC SURGERY STATUS 04/24/2017 WILL JEFFERS APRN Ot B19.20 UNSPECIFIED VIRAL HEPATITIS C WITHOUT HE 04/24/2017 STEPAN ARZATE MD Ot E03.9 HYPOTHYROIDISM, UNSPECIFIED 04/24/2017 STEPAN ARZATE MD Ot T14.8 OTHER INJURY OF UNSPECIFIED BODY REGION 04/24/2017 STEPAN ARZATE MD Ot D72.819 DECREASED WHITE BLOOD CELL COUNT, UNSPEC 05/01/2017 STEPAN ARZATE MD Ot G89.4 CHRONIC PAIN SYNDROME 05/01/2017 STEPAN ARZATE MD Ot 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 05/24/2017 STEPAN ARZATE MD Ot G89.4 CHRONIC PAIN SYNDROME 05/24/2017 STEPAN ARZATE MD Ot 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 05/25/2017 STEPAN ARZATE MD Ot G89.4 CHRONIC PAIN SYNDROME 05/25/2017 STEPAN ARZATE MD Ot 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 05/25/2017 KIMMIE PALMER MD Ot B19.20 UNSPECIFIED VIRAL HEPATITIS C WITHOUT HE 05/25/2017 KIMMIE PALMER MD Ot 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, UNSP, NODES OF ING RE 05/25/2017 KIMMIE PALMER MD Ot E66.01 MORBID (SEVERE) OBESITY DUE TO EXCESS CA 05/25/2017 KIMMIE PALMER MD, Ot R53.82 CHRONIC FATIGUE, UNSPECIFIED 05/25/2017 KIMMIE PALMER MD Ot Z68.42 BODY MASS INDEX (BMI) 45.0-49.9, ADULT 05/25/2017 KIMMIE PALMER MD Ot Z92.21 PERSONAL HISTORY OF ANTINEOPLASTIC CHEMO 05/25/2017 KIMMIE PALMER MD Ot Z98.84 BARIATRIC SURGERY STATUS 06/05/2017 KIMMIE PALMER MD Ot B19.20 UNSPECIFIED VIRAL HEPATITIS C WITHOUT HE 06/05/2017 KIMMIE PALMER MD Ot 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, UNSP, NODES OF ING RE 06/05/2017 KIMMIE PALMER MD Ot E66.01 MORBID (SEVERE) OBESITY DUE TO EXCESS CA 06/05/2017 KIMMIE PALMER MD Ot R53.82 CHRONIC FATIGUE, UNSPECIFIED 06/05/2017 KIMMIE PALMER MD Ot Z68.42 BODY MASS INDEX (BMI) 45.0-49.9, ADULT 06/05/2017 KIMMIE PALMER MD Ot Z92.21 PERSONAL HISTORY OF ANTINEOPLASTIC CHEMO 06/05/2017 KIMMIE PALMER MD Ot Z98.84 BARIATRIC SURGERY STATUS 06/29/2017 KIMMIE PALMER MD Ot B19.20 UNSPECIFIED VIRAL HEPATITIS C WITHOUT HE 06/29/2017 KIMMIE PALMER MD Ot 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, UNSP, NODES OF ING RE 06/29/2017 KIMMIE PALMER MD Ot E66.01 MORBID (SEVERE) OBESITY DUE TO EXCESS CA 06/29/2017 KIMMIE PALMER MD Ot R53.82 CHRONIC FATIGUE, UNSPECIFIED 06/29/2017 KIMMIE PALMER MD Ot Z68.42 BODY MASS INDEX (BMI) 45.0-49.9, ADULT 06/29/2017 KIMMIE PALMER MD, Ot Z92.21 PERSONAL HISTORY OF ANTINEOPLASTIC CHEMO 06/29/2017 KIMMIE PALMER MD, Ot Z98.84 BARIATRIC SURGERY STATUS 07/08/2017 KIMMIE PALMER MD, Ot B19.20 UNSPECIFIED VIRAL HEPATITIS C WITHOUT HE 07/08/2017 KIMMIE PALMER MD, Ot 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, UNSP, NODES OF ING RE 07/08/2017 KIMMIE PALMER MD Ot E66.01 MORBID (SEVERE) OBESITY DUE TO EXCESS CA 07/08/2017 KIMMIE PALMER MD Ot R53.82 CHRONIC FATIGUE, UNSPECIFIED 07/08/2017 KIMMIE PALMER MD, Ot Z68.42 BODY MASS INDEX (BMI) 45.0-49.9, ADULT 07/08/2017 KIMMIE PALMER MD, Ot Z92.21 PERSONAL HISTORY OF ANTINEOPLASTIC CHEMO 07/08/2017 KIMMIE PALMER MD, Ot Z98.84 BARIATRIC SURGERY STATUS 08/16/2017 STEPAN ARZATE MD R Ot Z12.31 ENCNTR SCREEN MAMMOGRAM FOR MALIGNANT NE 08/20/2017 HUEY DOTSON STEPAN R Ot Z12.31 ENCNTR SCREEN MAMMOGRAM FOR MALIGNANT NE 08/28/2017 HUEY DOTSON, STEPAN R Ot Z12.31 ENCNTR SCREEN MAMMOGRAM FOR MALIGNANT NE 09/25/2017 HUEY DOTSON, STEPAN R Ot Z12.31 ENCNTR SCREEN MAMMOGRAM FOR MALIGNANT NE 10/08/2017 HUEY DOTSON STEPAN R Ot Z12.31 ENCNTR SCREEN MAMMOGRAM FOR MALIGNANT NE 11/22/2017 KIMMIE PALMER MD, Ot 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, UNSPEC 11/22/2017 KIMMIE PALMER MD, Ot E66.01 MORBID (SEVERE) OBESITY DUE TO EXCESS CA 11/22/2017 KIMMIE PALMER MD Ot N92.0 EXCESSIVE AND FREQUENT MENSTRUATION WITH 11/22/2017 KIMMIE PALMER MD Ot R53.81 OTHER MALAISE 11/22/2017 KIMMIE PALMER MD, Ot Z86.19 PERSONAL HISTORY OF OTHER INFECTIOUS AND 11/22/2017 KIMMIE PALMER MD Ot Z92.21 PERSONAL HISTORY OF ANTINEOPLASTIC CHEMO 11/22/2017 KIMMIE PALMER MD, Ot Z98.84 BARIATRIC SURGERY STATUS 12/02/2017 HUEY DOTSON, STEPAN Knowles Ot 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 12/02/2017 HUEY DOTSON, STEPAN Knowles Ot 401.9 HYPERTENSION NOS 12/02/2017 ESTER MICHAEL DO Ot 278.00 OBESITY, NOS 12/02/2017 ETSER MICHAEL DO Ot 625.9 FEM GENITAL SYMPTOMS NOS 12/02/2017 ESTER MICHAEL DO Ot 789.00 ABDOMINAL PAIN, UNSPECIFIED SITE 12/02/2017 ESTER MICHAEL DO Ot 793.5 NOSP (ABN) FINDINGS ON RADIOLOGICAL OT 12/02/2017 ESTER MICHAEL DO Ot 793.89 OTH (ABN) FINDINGS ON RADIOLOGICAL EXAMI 12/02/2017 ESTER MICHAEL DO Ot V72.31 ROUTINE GYNECOLOGICAL EXAMINATION 12/02/2017 ESTER MICHAEL DO Ot V76.12 OTH SCREEN MAMMO-MALIGN NEOPLASM OF [place] 12/02/2017 KIMMIE PALMER MD Ot 070.70 UNSPECIFIED VIRAL HEPATITIS C WITHOUT HE 12/02/2017 KIMMIE PALMER MD Ot 202.85 LYMPHOMAS NEC INGUIN 12/02/2017 KIMMIE PALMER MD Ot 278.01 MORBID OBESITY 12/02/2017 KIMMIE PALMER MD Ot 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 12/02/2017 KIMMIE PALMER MD Ot 401.9 HYPERTENSION NOS 12/02/2017 KIMMIE PALMER MD Ot 455.0 INT HEMORRHOID W/O COMPL 12/02/2017 KIMMIE PALMER MD Ot 455.3 EXT HEMORRHOID W/O COMPL 12/02/2017 KIMMIE PALMER MD Ot 564.00 UNSPEC CONSTIPATION 12/02/2017 KIMMIE PALMER MD Ot V58.69 OTH MED,LT,CURRENT USE 12/02/2017 KIMMIE PALMER MD Ot V87.41 PERSONAL HISTORY OF ANTINEOPLASTIC CHEMO 12/02/2017 KIMMIE PALMER MD Ot 202.80 OTH LYMPHOMAS EXTRANODAL SOLID ORGAN U 12/02/2017 STEPAN ARZATE MD Ot 786.2 COUGH 12/02/2017 STEPAN ARZATE MD Ot 786.30 HEMOPTYSIS, UNSPECIFIED 12/02/2017 STEPAN ARZATE MD Ot 784.0 HEADACHE 12/02/2017 STEPAN ARZATE MD R Ot V72.81 ONTX-NHD-CHKAPMGZP CARDIOVASCULAR 12/02/2017 STEPAN ARZATE MD Ot V76.12 OTH SCREEN MAMMO-MALIGN NEOPLASM OF [place] 12/02/2017 STEPAN ARZATE MD R Ot V72.81 CXQA-ZAZ-WCKGLJXCQ CARDIOVASCULAR 12/02/2017 STEPAN ARZATE MD R Ot R51 HEADACHE 12/02/2017 STEPAN ARZATE MD R Ot R00.2 PALPITATIONS 12/02/2017 STEPAN ARZATE MD R Ot E04.1 NONTOXIC SINGLE THYROID NODULE 12/02/2017 Ot D64.9 ANEMIA, UNSPECIFIED 12/02/2017 Ot R53.1 WEAKNESS 12/02/2017 Ot Z98.89 OTHER SPECIFIED POSTPROCEDURAL STATES 12/02/2017 STEPAN ARZATE MD R Ot B19.20 UNSPECIFIED VIRAL HEPATITIS C WITHOUT HE 12/02/2017 STEPAN ARZATE MD R Ot K83.8 OTHER SPECIFIED DISEASES OF BILIARY TRAC 12/02/2017 STEPAN ARZATE MD R Ot B19.20 UNSPECIFIED VIRAL HEPATITIS C WITHOUT HE 12/02/2017 WILL JEFFERS COATING OPERATOR Ot E04.1 NONTOXIC SINGLE THYROID NODULE 12/02/2017 WILL JEFFERS COATING OPERATOR Ot B19.20 UNSPECIFIED VIRAL HEPATITIS C WITHOUT HE 12/02/2017 STEPAN ARZATE MD R Ot E03.9 HYPOTHYROIDISM, UNSPECIFIED 12/02/2017 STEPAN ARZATE MD R Ot T14.8 OTHER INJURY OF UNSPECIFIED BODY REGION 12/02/2017 STEPAN ARZATE MD R Ot D72.819 DECREASED WHITE BLOOD CELL COUNT, UNSPEC 12/02/2017 STEPAN ARZATE MD R Ot G89.4 CHRONIC PAIN SYNDROME 12/02/2017 STEPAN ARZATE MD R Ot 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 12/02/2017 KIMMIE PALMER MD Ot 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, UNSPEC 12/02/2017 KIMMIE PALMER MD Ot E66.01 MORBID (SEVERE) OBESITY DUE TO EXCESS CA 12/02/2017 KIMMIE PALMER MD Ot N92.0 EXCESSIVE AND FREQUENT MENSTRUATION WITH 12/02/2017 KIMMIE PALMER MD Ot R53.81 OTHER MALAISE 12/02/2017 KIMMIE PALMER MD, Ot Z86.19 PERSONAL HISTORY OF OTHER INFECTIOUS AND 12/02/2017 KIMMIE PALMER MD, Ot Z92.21 PERSONAL HISTORY OF ANTINEOPLASTIC CHEMO 12/02/2017 KIMMIE PALMER MD, Ot Z98.84 BARIATRIC SURGERY STATUS 12/02/2017 STEPAN ARZATE MD R Ot Z12.31 ENCNTR SCREEN MAMMOGRAM FOR MALIGNANT NE 12/02/2017 PRIYA BABB MD Ot C85.90 NON-HODGKIN LYMPHOMA, UNSPECIFIED, UNSPE 12/02/2017 PRIYA BABB MD Ot E78.2 MIXED HYPERLIPIDEMIA 12/02/2017 PRIYA BABB MD Ot I25.10 ATHSCL HEART DISEASE OF [place] CORONARY 12/02/2017 PRIYA BABB MD Ot I34.0 NONRHEUMATIC MITRAL (VALVE) INSUFFICIENC 12/02/2017 PRIYA BABB MD Ot I51.7 CARDIOMEGALY 12/02/2017 PRIYA BABB MD Ot R79.89 OTHER SPECIFIED ABNORMAL FINDINGS OF BLO 12/02/2017 STEPAN ARZATE MD R Ot E05.80 OTHER THYROTOXICOSIS WITHOUT THYROTOXIC 12/02/2017 KIMMIE PALMER MD, Ot 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, UNSPEC 12/02/2017 KIMMIE PALMER MD Ot E66.01 MORBID (SEVERE) OBESITY DUE TO EXCESS CA 12/02/2017 KIMMIE PALMER MD Ot N92.0 EXCESSIVE AND FREQUENT MENSTRUATION WITH 12/02/2017 KIMMIE PALMER MD Ot R53.81 OTHER MALAISE 12/02/2017 KIMMIE PALMER MD, Ot Z86.19 PERSONAL HISTORY OF OTHER INFECTIOUS AND 12/02/2017 KIMMIE PALMER MD, Ot Z92.21 PERSONAL HISTORY OF ANTINEOPLASTIC CHEMO 12/02/2017 KIMMIE PALMER MD, Ot Z98.84 BARIATRIC SURGERY STATUS 12/03/2017 PRIYA BABB MD, Ot C85.90 NON-[place]IN LYMPHOMA, UNSPECIFIED, UNSPE 12/03/2017 PRIYA BABB MD Ot E78.2 MIXED HYPERLIPIDEMIA 12/03/2017 PRIYA BABB MD Ot I25.10 ATHSCL HEART DISEASE OF [place] CORONARY 12/03/2017 PRIYA BABB MD Ot I34.0 NONRHEUMATIC MITRAL (VALVE) INSUFFICIENC 12/03/2017 PRIYA BABB MD Ot I51.7 CARDIOMEGALY 12/03/2017 PRIYA BABB MD Ot R79.89 OTHER SPECIFIED ABNORMAL FINDINGS OF BLO 12/03/2017 STEPAN ARZATE MD Ot E05.80 OTHER THYROTOXICOSIS WITHOUT THYROTOXIC 12/03/2017 STEPAN ARZATE MD Ot E06.3 AUTOIMMUNE THYROIDITIS 12/24/2017 STEPAN ARZATE MD Ot E05.80 OTHER THYROTOXICOSIS WITHOUT THYROTOXIC 12/24/2017 STEPAN ARZATE MD, Ot E06.3 AUTOIMMUNE THYROIDITIS 01/26/2018 KIMMIE PALMER MD, Ot 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, UNSPEC 01/26/2018 KIMMIE PALMER MD Ot E66.01 MORBID (SEVERE) OBESITY DUE TO EXCESS CA 01/26/2018 KIMMIE PALMER MD Ot N92.0 EXCESSIVE AND FREQUENT MENSTRUATION WITH 01/26/2018 KIMMIE PALMER MD Ot R53.81 OTHER MALAISE 01/26/2018 KIMMIE PALMER MD, Ot Z86.19 PERSONAL HISTORY OF OTHER INFECTIOUS AND 01/26/2018 KIMMIE PALMER MD Ot Z92.21 PERSONAL HISTORY OF ANTINEOPLASTIC CHEMO 01/26/2018 KIMMIE PALMER MD Ot Z98.84 BARIATRIC SURGERY STATUS 02/17/2018 STEPAN ARZATE MD Ot 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 02/17/2018 STEPAN ARZATE MD Ot 401.9 HYPERTENSION NOS 02/17/2018 ESTER MICHAEL DO Ot 278.00 OBESITY, NOS 02/17/2018 ESTER MICHAEL DO Ot 625.9 FEM GENITAL SYMPTOMS NOS 02/17/2018 ESTER MICHAEL DO Ot 789.00 ABDOMINAL PAIN, UNSPECIFIED SITE 02/17/2018 ESTER MICHAEL DO Ot 793.5 NOSP (ABN) FINDINGS ON RADIOLOGICAL OT 02/17/2018 ESTER MICHAEL DO Ot 793.89 OTH (ABN) FINDINGS ON RADIOLOGICAL EXAMI 02/17/2018 ESTER MCIHAEL DO Ot V72.31 ROUTINE GYNECOLOGICAL EXAMINATION 02/17/2018 ESTER MICHAEL DO S Ot V76.12 OTH SCREEN MAMMO-MALIGN NEOPLASM OF [place] 02/17/2018 SPENCER DOTSON, KIMMIE Ot 070.70 UNSPECIFIED VIRAL HEPATITIS C WITHOUT HE 02/17/2018 KIMMIE PALMER MD Ot 202.85 LYMPHOMAS NEC INGUIN 02/17/2018 KIMMIE PALMER MD Ot 278.01 MORBID OBESITY 02/17/2018 KIMMIE PALMER MD Ot 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 02/17/2018 KIMMIE PALMER MD Ot 401.9 HYPERTENSION NOS 02/17/2018 KIMMIE PALMER MD Ot 455.0 INT HEMORRHOID W/O COMPL 02/17/2018 KIMMIE PALMER MD Ot 455.3 EXT HEMORRHOID W/O COMPL 02/17/2018 KIMMIE PALMER MD Ot 564.00 UNSPEC CONSTIPATION 02/17/2018 KIMMIE PALMER MD Ot V58.69 OTH MED,LT,CURRENT USE 02/17/2018 KIMMIE PALMER MD Ot V87.41 PERSONAL HISTORY OF ANTINEOPLASTIC CHEMO 02/17/2018 KIMMIE PALMER MD Ot 202.80 OTH LYMPHOMAS EXTRANODAL SOLID ORGAN U 02/17/2018 STEPAN ARZATE MD Ot 786.2 COUGH 02/17/2018 STEPAN ARZATE MD Ot 786.30 HEMOPTYSIS, UNSPECIFIED 02/17/2018 STEPAN ARZATE MD Ot 784.0 HEADACHE 02/17/2018 STEPAN ARZATE MD Ot V72.81 [id number] CARDIOVASCULAR 02/17/2018 STEPAN ARZATE MD Ot V76.12 OTH SCREEN MAMMO-MALIGN NEOPLASM OF [place] 02/17/2018 STEPAN ARZATE MD Ot V72.81 [id number] CARDIOVASCULAR 02/17/2018 STEPAN ARZATE MD Ot R51 HEADACHE 02/17/2018 STEPAN ARZATE MD Ot R00.2 PALPITATIONS 02/17/2018 STEPAN ARZATE MD Ot E04.1 NONTOXIC SINGLE THYROID NODULE 02/17/2018 Ot D64.9 ANEMIA, UNSPECIFIED 02/17/2018 Ot R53.1 WEAKNESS 02/17/2018 Ot Z98.89 OTHER SPECIFIED POSTPROCEDURAL STATES 02/17/2018 STEPAN ARZATE MD R Ot B19.20 UNSPECIFIED VIRAL HEPATITIS C WITHOUT HE 02/17/2018 STEPAN ARZATE MD Ot K83.8 OTHER SPECIFIED DISEASES OF BILIARY TRAC 02/17/2018 STEPAN ARZATE MD R Ot B19.20 UNSPECIFIED VIRAL HEPATITIS C WITHOUT HE 02/17/2018 WILL JEFFERS COATING OPERATOR Ot E04.1 NONTOXIC SINGLE THYROID NODULE 02/17/2018 WILL JEFFERS COATING OPERATOR Ot B19.20 UNSPECIFIED VIRAL HEPATITIS C WITHOUT HE 02/17/2018 STEPAN ARZATE MD Ot E03.9 HYPOTHYROIDISM, UNSPECIFIED 02/17/2018 STEPAN ARZATE MD Ot T14.8 OTHER INJURY OF UNSPECIFIED BODY REGION 02/17/2018 STEPAN ARZATE MD Ot D72.819 DECREASED WHITE BLOOD CELL COUNT, UNSPEC 02/17/2018 STEPAN ARZATE MD Ot G89.4 CHRONIC PAIN SYNDROME 02/17/2018 STEPAN ARZATE MD Ot 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 02/17/2018 STEPAN ARZATE MD Ot Z12.31 ENCNTR SCREEN MAMMOGRAM FOR MALIGNANT NE 02/17/2018 PRIYA BABB MD Ot C85.90 NON-[place] LYMPHOMA, UNSPECIFIED, UNSPE 02/17/2018 PRIYA BABB MD Ot E78.2 MIXED HYPERLIPIDEMIA 02/17/2018 PRIYA BABB MD Ot I25.10 ATHSCL HEART DISEASE OF [place] CORONARY 02/17/2018 PRIYA BABB MD Ot I34.0 NONRHEUMATIC MITRAL (VALVE) INSUFFICIENC 02/17/2018 PRIYA BABB MD Ot I51.7 CARDIOMEGALY 02/17/2018 PRIYA BABB MD Ot R79.89 OTHER SPECIFIED ABNORMAL FINDINGS OF BLO 02/17/2018 STEPAN ARZATE MD Ot E05.80 OTHER THYROTOXICOSIS WITHOUT THYROTOXIC 02/17/2018 STEPAN ARZATE MD Ot E06.3 AUTOIMMUNE THYROIDITIS 02/17/2018 SVITLANA AWAN COATING OPERATOR Ot R07.89 OTHER CHEST PAIN 02/17/2018 IVÁN TILLMAN MD Ot 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, UNSPEC 02/17/2018 IVÁN TILLMAN MD Ot E66.01 MORBID (SEVERE) OBESITY DUE TO EXCESS CA 02/17/2018 IVÁN TILLMAN MD Ot N92.0 EXCESSIVE AND FREQUENT MENSTRUATION WITH 02/17/2018 IVÁN TILLMAN MD Ot R53.81 OTHER MALAISE 02/17/2018 IVÁN TILLMAN MD Ot Z86.19 PERSONAL HISTORY OF OTHER INFECTIOUS AND 02/17/2018 IVÁN TILLMAN MD Ot Z92.21 PERSONAL HISTORY OF ANTINEOPLASTIC CHEMO 02/17/2018 IVÁN TILLMAN MD Ot Z98.84 BARIATRIC SURGERY STATUS 03/06/2018 YVES NEWBY, NIKI Knowles Ot M54.12 RADICULOPATHY, CERVICAL REGION 03/18/2018 IVÁN TILLMAN MD, Ot 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, UNSPEC 03/18/2018 IVÁN TILLMAN MD Ot E66.01 MORBID (SEVERE) OBESITY DUE TO EXCESS CA 03/18/2018 IVÁN TILLMAN MD Ot N92.0 EXCESSIVE AND FREQUENT MENSTRUATION WITH 03/18/2018 IVÁN TILLMAN MD Ot R53.81 OTHER MALAISE 03/18/2018 IVÁN TILLMAN MD Ot Z86.19 PERSONAL HISTORY OF OTHER INFECTIOUS AND 03/18/2018 IVÁN TILLMAN MD Ot Z92.21 PERSONAL HISTORY OF ANTINEOPLASTIC CHEMO 03/18/2018 IVÁN TILLMAN MD Ot Z98.84 BARIATRIC SURGERY STATUS 03/19/2018 IVÁN TILLMAN MD, Ot 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, UNSPEC 03/19/2018 IVÁN TILLMAN MD Ot E03.9 HYPOTHYROIDISM, UNSPECIFIED 03/19/2018 IVÁN TILLMAN MD Ot E66.01 MORBID (SEVERE) OBESITY DUE TO EXCESS CA 03/19/2018 IVÁN TILLMAN MD Ot E78.5 HYPERLIPIDEMIA, UNSPECIFIED 03/19/2018 IVÁN TILLMAN MD Ot I08.1 RHEUMATIC DISORDERS OF BOTH MITRAL AND T 03/19/2018 IVÁN TILLMAN MD Ot N92.0 EXCESSIVE AND FREQUENT MENSTRUATION WITH 03/19/2018 IVÁN TILLMAN MD Ot R53.81 OTHER MALAISE 03/19/2018 IVÁN TILLMAN MD Ot Z68.32 BODY MASS INDEX (BMI) 32.0-32.9, ADULT 03/19/2018 IVÁN TILLMNA MD Ot Z86.19 PERSONAL HISTORY OF OTHER INFECTIOUS AND 03/19/2018 IVÁN TILLMAN MD Ot Z92.21 PERSONAL HISTORY OF ANTINEOPLASTIC CHEMO 03/19/2018 PRIMO DOTSON, IVÁN Ot Z98.84 BARIATRIC SURGERY STATUS 03/19/2018 STEPAN ARZATE MD Ot 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 03/19/2018 STEPAN ARZATE MD Ot 401.9 HYPERTENSION NOS 03/19/2018 FENECH DO, ESTER S Ot 278.00 OBESITY, NOS 03/19/2018 FENECH DO, ESTER S Ot 625.9 FEM GENITAL SYMPTOMS NOS 03/19/2018 FENECH DO, ESTER S Ot 789.00 ABDOMINAL PAIN, UNSPECIFIED SITE 03/19/2018 FENECH DO, ESTER S Ot 793.5 NOSP (ABN) FINDINGS ON RADIOLOGICAL OT 03/19/2018 ALEC VAUGHN, ESTER S Ot 793.89 OTH (ABN) FINDINGS ON RADIOLOGICAL EXAMI 03/19/2018 ALEC VAUGHN, ESTER S Ot V72.31 ROUTINE GYNECOLOGICAL EXAMINATION 03/19/2018 ESTER MICHAEL DO S Ot V76.12 OTH SCREEN MAMMO-MALIGN NEOPLASM OF [place] 03/19/2018 SPENCER DOTSON, KIMMIE Ot 070.70 UNSPECIFIED VIRAL HEPATITIS C WITHOUT HE 03/19/2018 KIMMIE PALMER MD Ot 202.85 LYMPHOMAS NEC INGUIN 03/19/2018 KIMMIE PALMER MD Ot 278.01 MORBID OBESITY 03/19/2018 KIMMIE PALMER MD Ot 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 03/19/2018 KIMMIE PALMER MD Ot 401.9 HYPERTENSION NOS 03/19/2018 KIMMIE PALMER MD Ot 455.0 INT HEMORRHOID W/O COMPL 03/19/2018 KIMMIE PALMER MD Ot 455.3 EXT HEMORRHOID W/O COMPL 03/19/2018 KIMMIE PALMER MD Ot 564.00 UNSPEC CONSTIPATION 03/19/2018 KIMMIE PALMER MD Ot V58.69 OTH MED,LT,CURRENT USE 03/19/2018 KIMMIE PALMER MD Ot V87.41 PERSONAL HISTORY OF ANTINEOPLASTIC CHEMO 03/19/2018 KIMMIE PALMER MD Ot 202.80 OTH LYMPHOMAS EXTRANODAL SOLID ORGAN U 03/19/2018 STEPAN ARZATE MD Ot 786.2 COUGH 03/19/2018 SEGLIE MD, STEPAN R Ot 786.30 HEMOPTYSIS, UNSPECIFIED 03/19/2018 STEPAN ARZATE MD R Ot 784.0 HEADACHE 03/19/2018 STEPAN ARZATE MD R Ot V72.81 [id number] CARDIOVASCULAR 03/19/2018 STEPAN ARZATE MD R Ot V76.12 OTH SCREEN MAMMO-MALIGN NEOPLASM OF [place] 03/19/2018 STEPAN ARZATE MD Ot V72.81 [id number] CARDIOVASCULAR 03/19/2018 STEPAN ARZATE MD R Ot R51 HEADACHE 03/19/2018 STEPAN ARZATE MD Ot R00.2 PALPITATIONS 03/19/2018 STEPAN ARZATE MD R Ot E04.1 NONTOXIC SINGLE THYROID NODULE 03/19/2018 Ot D64.9 ANEMIA, UNSPECIFIED 03/19/2018 Ot R53.1 WEAKNESS 03/19/2018 Ot Z98.89 OTHER SPECIFIED POSTPROCEDURAL STATES 03/19/2018 STEPAN ARZATE MD R Ot B19.20 UNSPECIFIED VIRAL HEPATITIS C WITHOUT HE 03/19/2018 STEPAN ARZATE MD R Ot K83.8 OTHER SPECIFIED DISEASES OF BILIARY TRAC 03/19/2018 STEPAN ARZATE MD R Ot B19.20 UNSPECIFIED VIRAL HEPATITIS C WITHOUT HE 03/19/2018 WILL JEFFERS COATING OPERATOR Ot E04.1 NONTOXIC SINGLE THYROID NODULE 03/19/2018 WILL JEFFERS COATING OPERATOR Ot B19.20 UNSPECIFIED VIRAL HEPATITIS C WITHOUT HE 03/19/2018 STEPAN ARZATE MD R Ot E03.9 HYPOTHYROIDISM, UNSPECIFIED 03/19/2018 STEPAN ARZATE MD R Ot T14.8 OTHER INJURY OF UNSPECIFIED BODY REGION 03/19/2018 STEPAN ARZATE MD R Ot D72.819 DECREASED WHITE BLOOD CELL COUNT, UNSPEC 03/19/2018 STEPAN ARZATE MD R Ot G89.4 CHRONIC PAIN SYNDROME 03/19/2018 STEPAN ARZATE MD R Ot 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 03/19/2018 STEPAN ARZATE MD R Ot Z12.31 ENCNTR SCREEN MAMMOGRAM FOR MALIGNANT NE 03/19/2018 HOLLEY DOTSON, PRIYA Waller Ot C85.90 NON-[place] LYMPHOMA, UNSPECIFIED, UNSPE 03/19/2018 PRIYA BABB MD Ot E78.2 MIXED HYPERLIPIDEMIA 03/19/2018 PRIYA BABB MD Ot I25.10 ATHSCL HEART DISEASE OF [place] CORONARY 03/19/2018 PRIYA BABB MD Ot I34.0 NONRHEUMATIC MITRAL (VALVE) INSUFFICIENC 03/19/2018 PRIYA BABB MD Ot I51.7 CARDIOMEGALY 03/19/2018 PRIYA BABB MD Ot R79.89 OTHER SPECIFIED ABNORMAL FINDINGS OF BLO 03/19/2018 STEPAN ARZATE MD Ot E05.80 OTHER THYROTOXICOSIS WITHOUT THYROTOXIC 03/19/2018 STEPAN ARZATE MD Ot E06.3 AUTOIMMUNE THYROIDITIS 03/19/2018 SVITLANA AWAN APRN Ot R07.89 OTHER CHEST PAIN 03/19/2018 NIKI ALONSO Ot M54.12 RADICULOPATHY, CERVICAL REGION 03/20/2018 IVÁN TILLMAN MD Ot 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, UNSPEC 03/20/2018 IVÁN TILLMAN MD Ot E03.9 HYPOTHYROIDISM, UNSPECIFIED 03/20/2018 IVÁN TILLMAN MD Ot E66.01 MORBID (SEVERE) OBESITY DUE TO EXCESS CA 03/20/2018 IVÁN TILLMAN MD Ot E78.5 HYPERLIPIDEMIA, UNSPECIFIED 03/20/2018 IVÁN TILLMAN MD Ot I08.1 RHEUMATIC DISORDERS OF BOTH MITRAL AND T 03/20/2018 IVÁN TILLMAN MD Ot N92.0 EXCESSIVE AND FREQUENT MENSTRUATION WITH 03/20/2018 IVÁN TILLMAN MD Ot R53.81 OTHER MALAISE 03/20/2018 IVÁN TILLMAN MD Ot Z68.32 BODY MASS INDEX (BMI) 32.0-32.9, ADULT 03/20/2018 IVÁN TILLMAN MD Ot Z86.19 PERSONAL HISTORY OF OTHER INFECTIOUS AND 03/20/2018 IVÁN TILLMAN MD Ot Z92.21 PERSONAL HISTORY OF ANTINEOPLASTIC CHEMO 03/20/2018 IVÁN TILLMAN MD Ot Z98.84 BARIATRIC SURGERY STATUS 03/20/2018 NIKI ALONSO R Ot M54.12 RADICULOPATHY, CERVICAL REGION 03/20/2018 NIKI ALONSO Ot M54.12 RADICULOPATHY, CERVICAL REGION 03/24/2018 IVÁN TILLMAN MD, Ot C85.90 NON-[place] LYMPHOMA, UNSPECIFIED, UNSPE 03/24/2018 IVÁN TILLMAN MD Ot K83.8 OTHER SPECIFIED DISEASES OF BILIARY TRAC 03/24/2018 IVÁN TILLMAN MD, Ot C85.90 NON-[place] LYMPHOMA, UNSPECIFIED, UNSPE 03/24/2018 IVÁN TILLMAN MD, Ot K83.8 OTHER SPECIFIED DISEASES OF BILIARY TRAC 03/24/2018 NIKI ALONSO Ot M54.12 RADICULOPATHY, CERVICAL REGION 04/09/2018 GABRIELLA CAZARES DO Ot Z01.818 ENCOUNTER FOR OTHER PREPROCEDURAL EXAMIN 04/09/2018 GABRIELLA CAZARES DO Ot Z11.2 ENCOUNTER FOR SCREENING FOR OTHER BACTER 04/11/2018 IVÁN TILLMAN MD, Ot C85.90 NON-[place] LYMPHOMA, UNSPECIFIED, UNSPE 04/11/2018 IVÁN TILLMAN MD, Ot K83.8 OTHER SPECIFIED DISEASES OF BILIARY TRAC Procedures Code Description Performed By Performed On [id number] 08/02/2016 Results Test Result Range Liver function panel (serum or plasma alk phos, alb, total and direct bili, total protein, ALT, AST) - 05/07/16 08:03 Serum or plasma total bilirubin measurement (mass/volume) 0.5 mg/dL 0.1-1.0 Serum or plasma alkaline phosphatase measurement (enzymatic activity/volume) 65 U/L 40-136 Serum or plasma aspartate aminotransferase measurement (enzymatic activity/ volume) 15 U/L 5-34 Serum or plasma alanine aminotransferase measurement (enzymatic activity/volume ) 17 U/L 0-55 Serum or plasma protein measurement (mass/volume) 6.5 g/dL 6.4-8.2 Serum or plasma albumin measurement (mass/volume) 3.9 g/dL 3.2-4.5 Bilirubin direct 0.2 mg/dL 0.0-0.3 Serum or plasma indirect bilirubin measurement (mass/volume) 0.3 mg/ dL NRG Serum hepatitis C virus antibody assay (units/volume) - 05/07/16 08:03 Serum hepatitis C virus antibody detection Reactive Non- Reactive Hepatitis C virus ab signal/cutoff in serum or plasma by immunoassay > % 0.00-0.79 Hepatitis B profile - 05/07/16 08:03 Confirmatory quantitative serum or plasma hepatitis B virus surface antigen measurement Non-Reactive Non-Reactive Hepatitis B virus core IgM antibody assay Non-Reactive Non-Reactive Serum hepatitis B virus surface antibody assay (units/volume) < % >=10.00 Hepatitis C virus RNA viral load by probe and target amplification method ( units/volume) - 05/16/16 10:45 Hepatitis C virus (HCV) RNA viral load measurement (log number/volume) Not Detected Not Detected Hepatitis C virus (HCV) RNA detection by PCR with reflex to quantitation Not Detected <=11 Hepatitis C virus RNA viral load by probe and target amplification method ( units/volume) - 07/26/16 10:59 Hepatitis C virus (HCV) RNA viral load measurement (log number/volume) Not Detected Not Detected Hepatitis C virus (HCV) RNA detection by PCR with reflex to quantitation Not Detected <=11 Complete blood count (CBC) with automated white blood cell (WBC) differential - 07/27/16 09:55 Blood leukocytes automated count (number/volume) 3.3 10*3/uL 4.3-11.0 Blood erythrocytes automated count (number/volume) 4.02 10*6/uL 4.35-5.85 Venous blood hemoglobin measurement (mass/volume) 13.0 g/dL 11.5-16.0 Blood hematocrit (volume fraction) 39 % 35-52 Automated erythrocyte mean corpuscular volume 97 [foz_us] 80-99 Automated erythrocyte mean corpuscular hemoglobin (mass per erythrocyte) 32 pg 25-34 Automated erythrocyte mean corpuscular hemoglobin concentration measurement ( mass/volume) 33 g/dL 32-36 Automated erythrocyte distribution width ratio 11.9 % 10.0-14.5 Automated blood platelet count (count/volume) 185 10*3/uL 130-400 Automated blood platelet mean volume measurement 10.6 [foz_us] 7.4-10.4 Automated blood neutrophils/100 leukocytes 39 % 42-75 Automated blood lymphocytes/100 leukocytes 52 % 12-44 Blood monocytes/100 leukocytes 7 % 0-12 Automated blood eosinophils/100 leukocytes 2 % 0-10 Automated blood basophils/100 leukocytes 0 % 0-10 Blood neutrophils automated count (number/volume) 1.3 10*3 1.8-7.8 Blood lymphocytes automated count (number/volume) 1.7 10*3 1.0-4.0 Blood monocytes automated count (number/volume) 0.2 10*3 0.0-1.0 Automated eosinophil count 0.1 10*3/uL 0.0-0.3 Automated blood basophil count (count/volume) 0.0 10*3/uL 0.0-0.1 Comprehensive metabolic panel - 07/27/16 09:55 Serum or plasma sodium measurement (moles/volume) 138 mmol/L 135-145 Serum or plasma potassium measurement (moles/volume) 3.6 mmol/L 3.6-5.0 Serum or plasma chloride measurement (moles/volume) 108 mmol/L 98-107 Carbon dioxide 20 mmol/L 21-32 Serum or plasma anion gap determination (moles/volume) 10 mmol/L 5-14 Serum or plasma urea nitrogen measurement (mass/volume) 13 mg/dL 7-18 Serum or plasma creatinine measurement (mass/volume) 0.79 mg/dL 0.60-1.30 Serum or plasma urea nitrogen/creatinine mass ratio 16 NRG Serum or plasma creatinine measurement with calculation of estimated glomerular filtration rate > NRG Serum or plasma glucose measurement (mass/volume) 84 mg/dL 70-105 Serum or plasma calcium measurement (mass/volume) 8.9 mg/dL 8.5-10.1 Serum or plasma total bilirubin measurement (mass/volume) 0.7 mg/dL 0.1-1.0 Serum or plasma alkaline phosphatase measurement (enzymatic activity/volume) 59 U/L 40-136 Serum or plasma aspartate aminotransferase measurement (enzymatic activity/ volume) 11 U/L 5-34 Serum or plasma alanine aminotransferase measurement (enzymatic activity/volume ) 12 U/L 0-55 Serum or plasma protein measurement (mass/volume) 6.6 g/dL 6.4-8.2 Serum or plasma albumin measurement (mass/volume) 4.0 g/dL 3.2-4.5 Methicillin resistant Staphylococcus aureus (MRSA) screening culture - 09:55 MRSA SCREEN RESULT MRSA ISOLATED NRG Urine beta human chorionic gonadotropin (hCG) measurement - 08/02/16 09:35 Urine beta human chorionic gonadotropin (hCG) measurement NEGATIVE NEGATIVE Automated blood complete blood count (hemogram) panel - 08/03/16 04:14 Blood leukocytes automated count (number/volume) 4.9 10*3/uL 4.3-11.0 Blood erythrocytes automated count (number/volume) 3.74 10*6/uL 4.35-5.85 Venous blood hemoglobin measurement (mass/volume) 11.8 g/dL 11.5-16.0 Blood hematocrit (volume fraction) 37 % 35-52 Automated erythrocyte mean corpuscular volume 98 [foz_us] 80-99 Automated erythrocyte mean corpuscular hemoglobin (mass per erythrocyte) 32 pg 25-34 Automated erythrocyte mean corpuscular hemoglobin concentration measurement ( mass/volume) 32 g/dL 32-36 Automated erythrocyte distribution width ratio 12.2 % 10.0-14.5 Automated blood platelet count (count/volume) 150 10*3/uL 130-400 Automated blood platelet mean volume measurement 11.0 [foz_us] 7.4-10.4 Whole blood basic metabolic panel - 08/03/16 04:14 Serum or plasma sodium measurement (moles/volume) 139 mmol/L 135-145 Serum or plasma potassium measurement (moles/volume) 4.0 mmol/L 3.6-5.0 Serum or plasma chloride measurement (moles/volume) 112 mmol/L 98-107 Carbon dioxide 17 mmol/L 21-32 Serum or plasma anion gap determination (moles/volume) 10 mmol/L 5-14 Serum or plasma urea nitrogen measurement (mass/volume) 7 mg/dL 7-18 Serum or plasma creatinine measurement (mass/volume) 0.73 mg/dL 0.60-1.30 Serum or plasma urea nitrogen/creatinine mass ratio 10 NRG Serum or plasma creatinine measurement with calculation of estimated glomerular filtration rate > NRG Serum or plasma glucose measurement (mass/volume) 100 mg/dL 70-105 Serum or plasma calcium measurement (mass/volume) 8.1 mg/dL 8.5-10.1 Complete blood count (CBC) with automated white blood cell (WBC) differential - 09/10/16 17:22 Blood leukocytes automated count (number/volume) 5.6 10*3/uL 4.3-11.0 Blood erythrocytes automated count (number/volume) 4.29 10*6/uL 4.35-5.85 Venous blood hemoglobin measurement (mass/volume) 13.9 g/dL 11.5-16.0 Blood hematocrit (volume fraction) 42 % 35-52 Automated erythrocyte mean corpuscular volume 99 [foz_us] 80-99 Automated erythrocyte mean corpuscular hemoglobin (mass per erythrocyte) 32 pg 25-34 Automated erythrocyte mean corpuscular hemoglobin concentration measurement ( mass/volume) 33 g/dL 32-36 Automated erythrocyte distribution width ratio 13.7 % 10.0-14.5 Automated blood platelet count (count/volume) 247 10*3/uL 130-400 Automated blood platelet mean volume measurement 10.9 [foz_us] 7.4-10.4 Automated blood neutrophils/100 leukocytes 58 % 42-75 Automated blood lymphocytes/100 leukocytes 36 % 12-44 Blood monocytes/100 leukocytes 4 % 0-12 Automated blood eosinophils/100 leukocytes 1 % 0-10 Automated blood basophils/100 leukocytes 1 % 0-10 Blood neutrophils automated count (number/volume) 3.2 10*3 1.8-7.8 Blood lymphocytes automated count (number/volume) 2.0 10*3 1.0-4.0 Blood monocytes automated count (number/volume) 0.2 10*3 0.0-1.0 Automated eosinophil count 0.1 10*3/uL 0.0-0.3 Automated blood basophil count (count/volume) 0.0 10*3/uL 0.0-0.1 Serum or plasma lithium measurement (moles/volume) - 09/10/16 17:22 BNP level 120.1 pg/mL <100.0 PT panel in platelet poor plasma by coagulation assay - 09/10/16 17:50 Prothrombin time (PT) in platelet poor plasma by coagulation assay 13.7 s 12.2-14.7 INR in platelet poor plasma or blood by coagulation assay 1.1 0.8-1.4 Activated partial thromboplastin time (aPTT) in platelet poor plasma bycoagulation assay - 09/10/16 17:50 Activated partial thromboplastin time (aPTT) in platelet poor plasma bycoagulation assay 32 s 24-35 Fibrin D-dimer FEU measurement in platelet poor plasma (mass/volume) - 17:50 Fibrin D-dimer FEU measurement in platelet poor plasma (mass/volume) < ug/mL 0.00-0.49 Comprehensive metabolic panel - 09/10/16 17:50 Serum or plasma sodium measurement (moles/volume) 135 mmol/L 135-145 Serum or plasma potassium measurement (moles/volume) 3.9 mmol/L 3.6-5.0 Serum or plasma chloride measurement (moles/volume) 111 mmol/L 98-107 Carbon dioxide 14 mmol/L 21-32 Serum or plasma anion gap determination (moles/volume) 10 mmol/L 5-14 Serum or plasma urea nitrogen measurement (mass/volume) 26 mg/dL 7-18 Serum or plasma creatinine measurement (mass/volume) 1.38 mg/dL 0.60-1.30 Serum or plasma urea nitrogen/creatinine mass ratio 19 NRG Serum or plasma creatinine measurement with calculation of estimated glomerular filtration rate 40 NRG Serum or plasma glucose measurement (mass/volume) 92 mg/dL 70-105 Serum or plasma calcium measurement (mass/volume) 8.0 mg/dL 8.5-10.1 Serum or plasma total bilirubin measurement (mass/volume) 0.5 mg/dL 0.1-1.0 Serum or plasma alkaline phosphatase measurement (enzymatic activity/volume) 58 U/L 40-136 Serum or plasma aspartate aminotransferase measurement (enzymatic activity/ volume) 46 U/L 5-34 Serum or plasma alanine aminotransferase measurement (enzymatic activity/volume ) 45 U/L 0-55 Serum or plasma protein measurement (mass/volume) 6.5 g/dL 6.4-8.2 Serum or plasma albumin measurement (mass/volume) 3.7 g/dL 3.2-4.5 Magnesium - 09/10/16 17:50 Magnesium 2.5 mg/dL 1.8-2.4 Serum or plasma troponin i.cardiac measurement (mass/volume) - 09/10/16 17:50 Serum or plasma troponin i.cardiac measurement (mass/volume) 1.13 ng /mL <0.30 Myoglobin, serum - 09/10/16 17:50 Myoglobin, serum 48.3 ng/mL 10.0-92.0 Serum or plasma amylase measurement (enzymatic activity/volume) - 09/10/16 17: 50 Serum or plasma amylase measurement (enzymatic activity/volume) 89 U /L 25-125 Lipase - 09/10/16 17:50 Lipase 43 U/L 8-78 Serum or plasma thyroxine (T4) free measurement (mass/volume) - 09/10/16 17:50 Serum or plasma thyroxine (T4) free measurement (mass/volume) < ng/ dL 0.70-1.48 Serum or plasma thyrotropin measurement by detection limit <=0.05 miu/l (units/ volume) - 09/10/16 17:50 Serum or plasma thyrotropin measurement by detection limit <=0.05 miu/l (units/ volume) 92.32 u[iU]/mL 0.35-4.94 Myoglobin, serum - 09/10/16 17:50 Myoglobin, serum 51.6 ng/mL 10.0-92.0 Complete blood count (CBC) with automated white blood cell (WBC) differential - 09/11/16 04:10 Blood leukocytes automated count (number/volume) 4.1 10*3/uL 4.3-11.0 Blood erythrocytes automated count (number/volume) 3.45 10*6/uL 4.35-5.85 Venous blood hemoglobin measurement (mass/volume) 11.2 g/dL 11.5-16.0 Blood hematocrit (volume fraction) 34 % 35-52 Automated erythrocyte mean corpuscular volume 99 [foz_us] 80-99 Automated erythrocyte mean corpuscular hemoglobin (mass per erythrocyte) 33 pg 25-34 Automated erythrocyte mean corpuscular hemoglobin concentration measurement ( mass/volume) 33 g/dL 32-36 Automated erythrocyte distribution width ratio 13.3 % 10.0-14.5 Automated blood platelet count (count/volume) 199 10*3/uL 130-400 Automated blood platelet mean volume measurement 9.6 [foz_us] 7.4-10.4 Automated blood neutrophils/100 leukocytes 51 % 42-75 Automated blood lymphocytes/100 leukocytes 43 % 12-44 Blood monocytes/100 leukocytes 4 % 0-12 Automated blood eosinophils/100 leukocytes 2 % 0-10 Automated blood basophils/100 leukocytes 1 % 0-10 Blood neutrophils automated count (number/volume) 2.1 10*3 1.8-7.8 Blood lymphocytes automated count (number/volume) 1.8 10*3 1.0-4.0 Blood monocytes automated count (number/volume) 0.2 10*3 0.0-1.0 Automated eosinophil count 0.1 10*3/uL 0.0-0.3 Automated blood basophil count (count/volume) 0.0 10*3/uL 0.0-0.1 Comprehensive metabolic panel - 09/11/16 04:10 Serum or plasma sodium measurement (moles/volume) 137 mmol/L 135-145 Serum or plasma potassium measurement (moles/volume) 3.4 mmol/L 3.6-5.0 Serum or plasma chloride measurement (moles/volume) 114 mmol/L 98-107 Carbon dioxide 15 mmol/L 21-32 Serum or plasma anion gap determination (moles/volume) 8 mmol/L 5-14 Serum or plasma urea nitrogen measurement (mass/volume) 22 mg/dL 7-18 Serum or plasma creatinine measurement (mass/volume) 0.86 mg/dL 0.60-1.30 Serum or plasma urea nitrogen/creatinine mass ratio 26 NRG Serum or plasma creatinine measurement with calculation of estimated glomerular filtration rate > NRG Serum or plasma glucose measurement (mass/volume) 76 mg/dL 70-105 Serum or plasma calcium measurement (mass/volume) 7.3 mg/dL 8.5-10.1 Serum or plasma total bilirubin measurement (mass/volume) 0.5 mg/dL 0.1-1.0 Serum or plasma alkaline phosphatase measurement (enzymatic activity/volume) 48 U/L 40-136 Serum or plasma aspartate aminotransferase measurement (enzymatic activity/ volume) 34 U/L 5-34 Serum or plasma alanine aminotransferase measurement (enzymatic activity/volume ) 33 U/L 0-55 Serum or plasma protein measurement (mass/volume) 5.3 g/dL 6.4-8.2 Serum or plasma albumin measurement (mass/volume) 3.1 g/dL 3.2-4.5 Serum or plasma phosphate measurement (mass/volume) - 09/11/16 04:10 Serum or plasma phosphate measurement (mass/volume) 3.1 mg/dL 2.3-4.7 Magnesium - 09/11/16 04:10 Magnesium 2.2 mg/dL 1.8-2.4 Lipid 1996 panel - 09/11/16 04:10 Serum or plasma triglyceride measurement (mass/volume) 77 mg/dL <150 Serum or plasma cholesterol measurement (mass/volume) 172 mg/dL < 200 Serum or plasma cholesterol in HDL measurement (mass/volume) 49 mg/ dL 40-60 Cholesterol in LDL [mass/volume] in serum or plasma by direct assay 103 mg/dL 1-129 Serum or plasma cholesterol in VLDL measurement (mass/volume) 15 mg/ dL 5-40 Serum or plasma troponin i.cardiac measurement (mass/volume) - 09/11/16 04:10 Serum or plasma troponin i.cardiac measurement (mass/volume) 0.79 ng /mL <0.30 Complete blood count (CBC) with automated white blood cell (WBC) differential - 03/06/17 13:00 Blood leukocytes automated count (number/volume) 2.9 10*3/uL 4.3-11.0 Blood erythrocytes automated count (number/volume) 3.69 10*6/uL 4.35-5.85 Venous blood hemoglobin measurement (mass/volume) 12.3 g/dL 11.5-16.0 Blood hematocrit (volume fraction) 37 % 35-52 Automated erythrocyte mean corpuscular volume 100 [foz_us] 80-99 Automated erythrocyte mean corpuscular hemoglobin (mass per erythrocyte) 33 pg 25-34 Automated erythrocyte mean corpuscular hemoglobin concentration measurement ( mass/volume) 34 g/dL 32-36 Automated erythrocyte distribution width ratio 13.2 % 10.0-14.5 Automated blood platelet count (count/volume) 170 10*3/uL 130-400 Automated blood platelet mean volume measurement 10.6 [foz_us] 7.4-10.4 Automated blood neutrophils/100 leukocytes 63 % 42-75 Automated blood lymphocytes/100 leukocytes 31 % 12-44 Blood monocytes/100 leukocytes 4 % 0-12 Automated blood eosinophils/100 leukocytes 2 % 0-10 Automated blood basophils/100 leukocytes 0 % 0-10 Blood neutrophils automated count (number/volume) 1.8 10*3 1.8-7.8 Blood lymphocytes automated count (number/volume) 0.9 10*3 1.0-4.0 Blood monocytes automated count (number/volume) 0.1 10*3 0.0-1.0 Automated eosinophil count 0.1 10*3/uL 0.0-0.3 Automated blood basophil count (count/volume) 0.0 10*3/uL 0.0-0.1 Comprehensive metabolic panel - 03/06/17 13:00 Serum or plasma sodium measurement (moles/volume) 142 mmol/L 135-145 Serum or plasma potassium measurement (moles/volume) 3.8 mmol/L 3.6-5.0 Serum or plasma chloride measurement (moles/volume) 113 mmol/L 98-107 Carbon dioxide 23 mmol/L 21-32 Serum or plasma anion gap determination (moles/volume) 6 mmol/L 5-14 Serum or plasma urea nitrogen measurement (mass/volume) 7 mg/dL 7-18 Serum or plasma creatinine measurement (mass/volume) 0.78 mg/dL 0.60-1.30 Serum or plasma urea nitrogen/creatinine mass ratio 9 NRG Serum or plasma creatinine measurement with calculation of estimated glomerular filtration rate > NRG Serum or plasma glucose measurement (mass/volume) 106 mg/dL 70-105 Serum or plasma calcium measurement (mass/volume) 8.6 mg/dL 8.5-10.1 Serum or plasma total bilirubin measurement (mass/volume) 0.5 mg/dL 0.1-1.0 Serum or plasma alkaline phosphatase measurement (enzymatic activity/volume) 47 U/L 40-136 Serum or plasma aspartate aminotransferase measurement (enzymatic activity/ volume) 20 U/L 5-34 Serum or plasma alanine aminotransferase measurement (enzymatic activity/volume ) 16 U/L 0-55 Serum or plasma protein measurement (mass/volume) 6.4 g/dL 6.4-8.2 Serum or plasma albumin measurement (mass/volume) 3.8 g/dL 3.2-4.5 THYROID STIMULATING HORMONE - 03/06/17 13:00 THYROID STIMULATING HORMONE 4.74 u[iU]/mL 0.35-4.94 Cyanocobalamin measurement - 03/06/17 13:00 Vitamin B12 635 pg/mL 200-1000 Complete blood count (CBC) with automated white blood cell (WBC) differential - 03/14/17 12:09 Blood leukocytes automated count (number/volume) 3.3 10*3/uL 4.3-11.0 Blood erythrocytes automated count (number/volume) 3.82 10*6/uL 4.35-5.85 Venous blood hemoglobin measurement (mass/volume) 12.3 g/dL 11.5-16.0 Blood hematocrit (volume fraction) 39 % 35-52 Automated erythrocyte mean corpuscular volume 101 [foz_us] 80-99 Automated erythrocyte mean corpuscular hemoglobin (mass per erythrocyte) 32 pg 25-34 Automated erythrocyte mean corpuscular hemoglobin concentration measurement ( mass/volume) 32 g/dL 32-36 Automated erythrocyte distribution width ratio 13.2 % 10.0-14.5 Automated blood platelet count (count/volume) 176 10*3/uL 130-400 Automated blood platelet mean volume measurement 10.1 [foz_us] 7.4-10.4 Automated blood neutrophils/100 leukocytes 42 % 42-75 Automated blood lymphocytes/100 leukocytes 46 % 12-44 Blood monocytes/100 leukocytes 7 % 0-12 Automated blood eosinophils/100 leukocytes 4 % 0-10 Automated blood basophils/100 leukocytes 1 % 0-10 Blood neutrophils automated count (number/volume) 1.4 10*3 1.8-7.8 Blood lymphocytes automated count (number/volume) 1.5 10*3 1.0-4.0 Blood monocytes automated count (number/volume) 0.2 10*3 0.0-1.0 Automated eosinophil count 0.1 10*3/uL 0.0-0.3 Automated blood basophil count (count/volume) 0.0 10*3/uL 0.0-0.1 Complete blood count (CBC) with automated white blood cell (WBC) differential - 08/27/17 14:53 Blood leukocytes automated count (number/volume) 2.9 10*3/uL 4.3-11.0 Blood erythrocytes automated count (number/volume) 3.78 10*6/uL 4.35-5.85 Venous blood hemoglobin measurement (mass/volume) 12.5 g/dL 11.5-16.0 Blood hematocrit (volume fraction) 39 % 35-52 Automated erythrocyte mean corpuscular volume 102 [foz_us] 80-99 Automated erythrocyte mean corpuscular hemoglobin (mass per erythrocyte) 33 pg 25-34 Automated erythrocyte mean corpuscular hemoglobin concentration measurement ( mass/volume) 32 g/dL 32-36 Automated erythrocyte distribution width ratio 12.9 % 10.0-14.5 Automated blood platelet count (count/volume) 182 10*3/uL 130-400 Automated blood platelet mean volume measurement 9.5 [foz_us] 7.4-10.4 Automated blood neutrophils/100 leukocytes 62 % 42-75 Automated blood lymphocytes/100 leukocytes 30 % 12-44 Blood monocytes/100 leukocytes 5 % 0-12 Automated blood eosinophils/100 leukocytes 3 % 0-10 Automated blood basophils/100 leukocytes 1 % 0-10 Blood neutrophils automated count (number/volume) 1.8 10*3 1.8-7.8 Blood lymphocytes automated count (number/volume) 0.9 10*3 1.0-4.0 Blood monocytes automated count (number/volume) 0.1 10*3 0.0-1.0 Automated eosinophil count 0.1 10*3/uL 0.0-0.3 Automated blood basophil count (count/volume) 0.0 10*3/uL 0.0-0.1 Comprehensive metabolic panel - 08/27/17 14:53 Serum or plasma sodium measurement (moles/volume) 139 mmol/L 135-145 Serum or plasma potassium measurement (moles/volume) 4.4 mmol/L 3.6-5.0 Serum or plasma chloride measurement (moles/volume) 110 mmol/L 98-107 Carbon dioxide 24 mmol/L 21-32 Serum or plasma anion gap determination (moles/volume) 5 mmol/L 5-14 Serum or plasma urea nitrogen measurement (mass/volume) 13 mg/dL 7-18 Serum or plasma creatinine measurement (mass/volume) 0.81 mg/dL 0.60-1.30 Serum or plasma urea nitrogen/creatinine mass ratio 16 NRG Serum or plasma creatinine measurement with calculation of estimated glomerular filtration rate > NRG Serum or plasma glucose measurement (mass/volume) 103 mg/dL 70-105 Serum or plasma calcium measurement (mass/volume) 8.8 mg/dL 8.5-10.1 Serum or plasma total bilirubin measurement (mass/volume) 0.4 mg/dL 0.1-1.0 Serum or plasma alkaline phosphatase measurement (enzymatic activity/volume) 55 U/L 40-136 Serum or plasma aspartate aminotransferase measurement (enzymatic activity/ volume) 25 U/L 5-34 Serum or plasma alanine aminotransferase measurement (enzymatic activity/volume ) 21 U/L 0-55 Serum or plasma protein measurement (mass/volume) 6.7 g/dL 6.4-8.2 Serum or plasma albumin measurement (mass/volume) 3.7 g/dL 3.2-4.5 THYROID STIMULATING HORMONE - 08/27/17 14:53 THYROID STIMULATING HORMONE 45.20 u[iU]/mL 0.35-4.94 Cyanocobalamin measurement - 08/27/17 14:53 Vitamin B12 445 pg/mL 200-1000 25-hydroxyvitamin D measurement - 08/27/17 14:53 25-hydroxy vitamin D measurement 34 % 30-100 THYROID STIMULATING HORMONE - 12/02/17 08:54 THYROID STIMULATING HORMONE 0.06 u[iU]/mL 0.35-4.94 TRIIODOTHRYONINE T3 FREE - 12/02/17 08:54 TRIIODOTHYRONINE T3 FREE 4.0 pg/mL 2.4-4.5 Thyroxine (T4) measurement - 12/02/17 08:54 T4 (thyroxine) 10.3 % 5.5-12.0 Methicillin resistant Staphylococcus aureus (MRSA) screening culture - 11:41 Methicillin resistant Staphylococcus aureus (MRSA) screening culture NEG NRG Encounters ACCT No. Visit Date/Time Discharge Status Pt. Type Provider Facility Loc./Unit Complaint [id number] 04/10/2018 08:46:00 04/10/2018 23:59:59 CLS Outpatient YOVANY HOU DO [facility] RAD MENOPAUSAL STATE [id number] 03/27/2018 10:28:00 04/10/2018 13:30:00 DIS Outpatient NIKI ALONSO [facility] REHAB CERVICAL RADICULOPATHY [id number] 04/07/2018 11:07:00 04/07/2018 11:50:00 DIS Outpatient GABRIELLA CAZARES DO [facility] PREOP C5-6 ACDF [id number] 03/24/2018 14:40:00 03/24/2018 23:59:59 CLS Outpatient KIMMIE PALMER MD [facility] ONC [id number] 03/21/2018 11:13:00 03/21/2018 23:59:59 CLS Outpatient IVÁN TILLMAN MD [facility] RAD NON HODGKIN'S LYMPHOMA [id number] 03/19/2018 12:47:00 03/19/2018 15:20:00 DIS Outpatient IVÁN TILLMAN MD [facility] ONC [id number] 10/28/2017 13:47:00 01/26/2018 00:01:00 DIS Outpatient KIMMIE PALMER MD [facility] ONC [id number] 12/16/2017 09:05:00 12/16/2017 23:59:59 CLS Outpatient SVITALNA AWAN APRN [facility] CARD OTHER CHEST PAIN [id number] 12/02/2017 08:41:00 12/02/2017 23:59:59 CLS Outpatient STEPAN ARZATE MD [facility] LAB E05.80,E06.3 [id number] 11/13/2017 08:23:00 11/13/2017 23:59:59 CLS Outpatient PRIYA BABB MD [facility] LAB I25.10 R79.89 I51.7 I34.0 E78.2 C85.90 [id number] 08/27/2017 14:22:00 08/27/2017 23:59:59 CLS Outpatient STEPAN ARZATE MD [facility] RAD SCREENING [id number] 04/16/2017 10:57:00 06/29/2017 00:01:00 DIS Outpatient KIMMIE PALMER MD [facility] ONC [id number] 04/25/2017 08:18:00 04/25/2017 23:59:59 CLS Outpatient STEPAN ARZATE MD [facility] RAD CHRONIC PAIN DISORDER [id number] 03/27/2017 10:06:00 03/27/2017 10:06:00 CAN Preadmit STEPAN ARZATE MD [facility] REHAB CHRONIC PAIN DISORDER [id number] 03/14/2017 12:00:00 03/14/2017 23:59:59 CLS Outpatient STEPAN ARZATE MD [facility] LAB LEUKOPENIA [id number] 03/06/2017 12:48:00 03/06/2017 23:59:59 CLS Outpatient STEPAN ARZATE MD [facility] LAB BRUISING [id number] 09/10/2016 19:00:00 09/11/2016 12:55:00 DIS Outpatient PRIYA BABB MD [facility] CATH NON STEMI, ELEV TROPONIN [id number] 08/04/2016 16:33:00 08/04/2016 18:59:00 DIS Emergency GIBRAN HILL MD [facility] ER ALLERGIC REACTION POST THYROIDECTOMY [id number] 08/02/2016 09:03:00 08/03/2016 14:26:00 DIS Outpatient OANH CHANDLER MD [facility] SDC THYROID GOITER [id number] 07/27/2016 09:22:00 07/27/2016 12:30:00 DIS Outpatient OANH CHANDLER MD [facility] PREOP THYROID GOITER [id number] 07/26/2016 10:45:00 07/26/2016 23:59:59 CLS Outpatient WILL JEFFERS COATING OPERATOR [facility] LAB ELEVATED HEP C INDEX [id number] 04/17/2016 10:36:00 07/16/2016 00:01:00 DIS Outpatient KIMMIE PALMER MD [facility] ONC [id number] 06/07/2016 10:39:00 06/07/2016 23:59:59 CLS Outpatient WILL JEFFERS COATING OPERATOR [facility] RAD THYROID NODULE [id number] 05/16/2016 10:22:00 05/16/2016 23:59:59 CLS Outpatient STEPAN ARZATE MD [facility] LAB HEP C [id number] 05/07/2016 07:58:00 05/07/2016 23:59:59 CLS Outpatient STEPAN ARZATE MD [facility] RAD HEP C [id number] 10/18/2015 10:59:00 01/16/2016 00:01:00 DIS Outpatient KIMMIE PALMER MD [facility] ONC [id number] 12/22/2015 14:03:00 12/22/2015 23:59:59 CLS Outpatient STEPAN ARZATE MD [facility] RAD NODULE R THYROID [id number] 09/30/2015 09:00:00 09/30/2015 23:59:59 CLS Preadmit STEPAN ARZATE MD [facility] CARD INFREQ PALPITATIONS [id number] 07/25/2015 07:37:00 09/29/2015 00:01:00 DIS Outpatient STEPAN ARZATE MD [facility] CARD INFREQ PALPITATIONS [id number] 07/11/2015 14:07:00 07/11/2015 23:59:59 CLS Outpatient STEPAN ARZATE MD [facility] LAB PAIN L TEMPORAL [id number] 04/19/2015 10:41:00 06/29/2015 00:01:00 DIS Outpatient KIMMIE PALMER MD [facility] ONC [id number] 06/22/2015 08:07:00 06/22/2015 23:59:59 CLS Outpatient STEPAN ARZATE MD [facility] CARD PREOP FOR SURGERY [id number] 06/15/2015 11:39:00 06/15/2015 23:59:59 CLS Outpatient STEPAN ARZATE MD [facility] RAD SCREENING,PREP FOR SURGERY [id number] 04/18/2015 12:39:00 04/18/2015 23:59:59 CLS Outpatient STEPAN ARZATE MD [facility] RAD PERIORBTAL PAIN [id number] 10/26/2014 09:47:00 01/24/2015 00:01:00 DIS Outpatient KIMMIE PALMER MD [facility] ONC [id number] 10/26/2014 12:05:00 10/29/2014 08:15:00 DIS Inpatient STEPAN ARZATE MD [facility] 4TH COUGH,FEVER,DIARRHEA [id number] 09/09/2014 10:48:00 09/09/2014 23:59:59 CLS Outpatient STEPAN ARZATE MD [facility] RAD COUGH [id number] 03/31/2014 12:47:00 06/29/2014 00:01:00 DIS Outpatient KIMMIE PALMER MD [facility] ONC [id number] 03/25/2014 09:14:00 03/25/2014 23:59:59 CLS Outpatient KIMMIE PALMER MD [facility] RAD LYMPHOMA,RU ABD NODULE [id number] 03/23/2014 10:05:00 03/23/2014 23:59:59 CLS Outpatient KIMMIE PALMER MD [facility] ONC [id number] 02/08/2014 14:00:00 02/08/2014 23:59:59 CLS Outpatient ESTER MICHAEL DO [facility] RAD SCREENING,PELVIC PAIN ,ABD PAIN [id number] 10/26/2013 10:46:00 10/26/2013 23:59:59 CLS Outpatient STEPAN ARZATE MD [facility] RAD HTN [id number] 06/23/2013 13:26:00 06/23/2013 23:59:59 CLS Outpatient [id number] 04/30/2013 09:43:00 04/30/2013 23:59:59 CLS Outpatient [id number] 03/11/2013 15:41:00 03/12/2013 16:40:00 DIS Inpatient [id number] 01/27/2013 09:11:00 01/27/2013 23:59:59 CLS Outpatient [id number] 04/14/2018 12:45:00 PEN Preadmit GABRIELLA CAZARES DO CERVICAL STENOSIS [id number] 12/29/2015 15:08:00 Document Registration [id number] 12/04/2014 15:26:00 Document Registration [id number] 12/02/2014 14:03:00 Document Registration [id number] 09/03/2012 12:00:00 Document Registration [id number] 07/11/2015 15:02:12 ACT Document Registration
[2018-04-14] MEDS: FAMOTIDINE 20 MG (PEPCID) TABLET PO SCH (14:09)
--- NOTE | 2018-04-14 15:00 | OPERATIVE REPORT ---
DATE OF SERVICE: 04/14/2018 SURGEON: Gabriella Liz DO PLASTIC SHEETS FINISHING SUPERVISOR: KEYONNA Delgaidllo. This is a medically necessary procedure. Assistance was necessary for retraction of vital neurovascular structures. Without an animal assistant, the procedure would not be possible. PREOPERATIVE DIAGNOSES: 1. Cervical stenosis (foraminal, bony). 2. Degenerative disk disease. 3. Cervical radiculopathy. POSTOPERATIVE DIAGNOSES: 1. Cervical stenosis (foraminal, bony). 2. Degenerative disk disease. 3. Cervical radiculopathy. PROCEDURE PERFORMED: 1. C5-C6 anterior cervical diskectomy and fusion. 2. Application of titanium interbody spacer, C5-C6. 3. Application of anterior instrumentation, C5-C6. 4. Use of human allograft for spine. 5. Use of local bone autograft. COMPLICATIONS: None. SPECIMENS SENT: None. DRAINS PLACED: None. ESTIMATED BLOOD LOSS: Minimal. HISTORY OF PRESENT ILLNESS: The patient is a very pleasant 52-year-old female who presented to me with severe neck and shoulder pain. MRI demonstrated degenerative disk disease at C5-C6 with stenosis. She failed all conservative measures and wished to proceed with surgery. DESCRIPTION OF PROCEDURE: The patient was identified by name on wrist band in the preoperative holding area. The operative site was signed, consent was signed. SCDs were placed. Neuromonitor was hooked up and antibiotics were started. She was taken to the operating theater and placed under general endotracheal tube anesthesia and transferred to the operating room table in the supine position. She was prepped and draped in usual sterile fashion. Formal timeout was conducted. I then made an oblique incision over the medial aspect of the left sternocleidomastoid. I proceeded with a standard anterior cervical approach. I verified my level under . I placed distraction across the C5-C6 disk space. I performed a complete diskectomy. I took down the posterior longitudinal ligament and I performed bilateral foraminotomies. I then sized and chose the appropriate titanium interbody cage packed with human allograft and seated in the midline position. I then chose a plate, placed it in the midline. I placed screws through that plate into the body of C5 and into the body of C6. Final AP and lateral x-rays demonstrated good positioning of the hardware. At this point, I closed the wound in the usual layered fashion, applied dressings, took the patient in the supine position to the PACU, where she awoke without incident. She tolerated the procedure well. PLAN: At this time, admit the patient for IV antibiotics, IV pain control and postop monitoring. I will have her out of bed on postop day #1. She will have a brace to wear while she is out of bed. Please note instrumentation utilized was Nu[employer] for everything. Neuromonitoring was stable. Job ID: [id number] DocumentID: [id number] Dictated Date: 04/14/2018 12:16:58 Inseam Trimmer Date: 04/14/2018 15:00:24 Dictated By: GABRIELLA LIZ DO
[2018-04-14] MEDS: ceFAZolin INJECTION 1,000 MG in NS (IVPB) 50 ML IV SCH (17:21)
[2018-04-14 19:10] VITALS: BP 114/63
[2018-04-15] MEDS: FAMOTIDINE 20 MG (PEPCID) TABLET PO SCH ×3 (00:23→20:02)
[2018-04-15] MEDS: ceFAZolin INJECTION 1,000 MG in NS (IVPB) 50 ML IV SCH ×2 (00:23→07:43)
[2018-04-15] MEDS: morphine INJ 10 MG/ML 1ML (SYR OR VIAL) IM PRN ×2 (00:28→05:24)
[2018-04-15 00:42] VITALS: BP 111/56
[2018-04-15] MEDS: oxyCODONE/APAP 5/325MG (PERCOCET 5) TABLET PO PRN ×6 (03:35→23:56)
[2018-04-15 04:29] VITALS: BP 126/83
[2018-04-15] MEDS: MULTIVIT W/MINERALS TAB (THERAGRAN M) PO SCH (06:15)
--- NOTE | 2018-04-15 07:02 | Anesthesia-General Post-Op ---
General Patient Condition Mental Status/LOC: Same as Preop Cardiovascular: Satisfactory Nausea/Vomiting: Absent Respiratory: Satisfactory Pain: Controlled Complications: Absent Post Op Complications Complications None Follow Up Care/Instructions Patient Instructions None needed. Anesthesia/Patient Condition Patient Condition Patient is doing well, no complaints, stable vital signs, no apparent adverse anesthesia problems. No complications reported per nursing. JONATHAN DAVIS CRNA Apr 15, 2018 07:02
[2018-04-15] MEDS ORDERED: OXYC-465 PO (07:12)
[2018-04-15] MEDS: MILK OF MAGNESIA 400 MG/5 ML 30 ML UDC PO SCH (07:43)
[2018-04-15] MEDS: CYCLOBENZAPRINE 10 MG (FLEXERIL) TAB PO PRN ×3 (07:43→22:52)
[2018-04-15 08:00] VITALS: BP 106/70
--- NOTE | 2018-04-15 08:34 | Diagnostic Imaging Report ---
INDICATION: Postop. FINDINGS: Frontal and lateral cervical radiographs reveal ACDF at C5-C6. The hardware projects in good alignment and is intact. The bony alignment is anatomic. The vertebral stature is normal. The prevertebral space is unremarkable. IMPRESSION: Good appearance of the lower cervical ACDF. Dictated by: Dictated on workstation # [id number]
--- NOTE | 2018-04-15 09:37 | Physical Therapy Evaluation ---
PT Evaluation-General Medical Diagnosis Admission Date Apr 14, 2018 at 10:00 Medical Diagnosis: cervical stenosis Onset Date: Apr 14, 2018 Therapy Diagnosis Therapy Diagnosis: debility Height/Weight Height (Feet): 5 Height (Inches): 9.00 Weight (Pounds): 231 Weight (Ounces): 0.0 Precautions Precautions/Isolations: Standard Precautions Weight Bear Status Right Lower Extremity: Right Full Weight Bearing Left Lower Extremity: Left Full Weight Bearing Referral Physician: Agusto Reason for Referral: Evaluation/Treatment Medical History Additional Medical History cancer Current History s/p C5-6 anterior cervical discectomy and fusion with spacer Reviewed History: Yes Social History Home: Apartment Current Living Status: Alone Entry Into Home: Level Entry Prior/Core FIM Prior Level of Function Functional [place] Measure 0=Not Assessed/NA 4=Minimal Assistance 1=Total Assistance 5=Supervision or Setup 2=Maximal Assistance 6=Modified [place] 3=Moderate Assistance 7=Complete [place] Bed Mobility: 7 Transfers (B,C,W/C) (FIM): 7 Gait: 7 PT Evaluation-Current Subjective Patient agrees to PT. Pain Numeric Pain Scale: 8 Location: Incisional Location Body Site: Neck Pain Description: Acute Objective Patient Orientation: Normal For Age Problem Solving: Fair ROM/Strength ROM Lower Extremities bilateral LE WNL Strength Lower Extremities WFL bilaterally Integumentary/Posture Integumentary refer to nursing notes Bowel Incontinence: No Bladder Incontinence: No Posture erect Neuromuscular (Tone, Coordination, Reflexes) grossly intact Sensory Vision: Wears Glasses Hearing: Functional Sensation Right Lower Extremit: Intact Sensation Left Lower Extremity: Intact Transfers Functional [place] Measure 0=Not Assessed/NA 4=Minimal Assistance 1=Total Assistance 5=Supervision or Setup 2=Maximal Assistance 6=Modified [place] 3=Moderate Assistance 7=Complete [place] Transfers (B, C, W/C) (FIM): 7 Scootin Rollin Supine to/from Sit: 7 Sit to/from Stand: 7 Gait Mode of Locomotion: Walk Anticipated Mode of Locomotion: Walk Gait (FIM): 7 Distance (FIM): 3=150 ft Distance: 500' Gait Level of Assist: 7 Gait Assistive Device: None Comments/Gait Description slow, steady, functional, no deviation Balance Sitting Static: Normal Sitting Dynamic: Normal Standing Static: Normal Standing Dynamic: Normal Assessment/Needs 52 y.o. female, is currently at [facility] with all gross motor skills and does not require skilled therapy intervention. PT instructed patient and RN to have patient ambulate PRN in hallway independently to increase activity. Thank you for this referral. Rehab Potential: Fair PT Plan Treatment/Plan Treatment Plan: Discontinue PT, goals met Treatment Plan: Other Treatment Duration: Apr 15, 2018 Frequency: 1 time per week Estimated Hrs Per Day: .25 hour per day Patient and/or Family Agrees t: Yes Discharge Recommendations Therapy D/C Recommendations: Home Independently Time/GCodes Time In: 840 Time Out: 850 Total Billed Treatment Time: 10 Total Billed Treatment 1 visit EVLowC 10 min G Codes Necessary: FABIAN Lopez PT Apr 15, 2018 09:37
[2018-04-15 12:00] VITALS: BP 107/60
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
--- NOTE | 2018-04-15 13:09 | Occupational Therapy Eval ---
OT Evaluation-General/PLF Medical Diagnosis Admission Date Apr 14, 2018 at 10:00 Medical Diagnosis: cervical stenosis/ACDF c5-6 Onset Date: Apr 14, 2018 Therapy Diagnosis Therapy Diagnosis: Decreased ADL skills Height/Weight Height (Feet): 5 Height (Inches): 9.00 Weight (Pounds): 231 Weight (Ounces): 0.0 Precautions Precautions/Isolations: Standard Precautions Safety Interventions: None Referral Physician: Agusto Referral Reason: Activity Tolerance, Self Care, Evaluation/Treatment, Strengthening/ROM Referral Comments Pt. has neck brace that is to be worn when up. Medical History Additional Medical History DDD, gastric surgery, back issues, CA Current History Pt. states that she has been disabled since having surgery approximately 16 years ago. Pt. has a caregiver that assists her 23 hours per week. Reviewed History: Yes Social History Home: Apartment Current Living Status: Alone Entry Into Home: Level Entry ADL-Prior Level of Function ADL PLOF Comments Pt. states that her caregiver (daughter) assists her into shower if she needs it. She also cooks and cleans as needed. DME/Equipment: Bath Chair, Tub/Shower DME/Equipment Comments Pt. has a walker and cane. Drive Self: Yes (Pt. reports that this was becoming more difficult due to decreased mobility in neck.) OT Current Status Subjective Pt. does not report pain level. Appearance Pt. is up in chair. Does seem groggy and slow to answer at times. Agrees to shower. Mental Status/Objective Patient Orientation: Person, Place, Time, Situation Current Glasses/Contacts: Yes Upper Extremity ROM Pt. is only able to demonstrate approximately 60 degrees bilateral shoulder flexion. States that this is due to the surgery. Upper Extremity Strength NT due to neck surgery and spinal precautions. ADL-Treatment Functional [place] Measure 0=Not Assessed/NA 4=Minimal Assistance 1=Total Assistance 5=Supervision or Setup 2=Maximal Assistance 6=Modified [place] 3=Moderate Assistance 7=Complete IndependenceIRFPAI Quality Coding Scale 6 Independent with activity with or without an assistive device 5 Patient requires set up or clean up by helper. Patient completes activity by themselves 4 Supervision or touching assist (CGA). Benedicta provide cues , steadying assist 3 The helper provides less than half the effort to complete the activity 2 The helper provides more than half the effort to complete the activity 1 Dependent. The helper does all the effort to complete an activity 7 Patient refused to complete or attempt activity 9 The patient did not perform the activity before the current illness or injury 88 Not attempted due to Medical conditions or safety concerns Bathing (FIM): 5 (SBA in shower to reach all parts.) Upper Body Dressing (FIM): 5 (Set up to don shirt.) Lower Body Dressing (FIM): 5 (SBA to don pants and socks.) Transfers (B, C, W/C) (FIM): 5 Shower Transfer (FIM): 5 Other Treatments Pt. is able to complete all ADL skills with SBA due to slow movements from recent surgery. Demonstrates no difficulty reaching feet by bringing them up to her, or cleansing rafaela area. After shower and dressing task, pt. ambulated without walker back to chair. All needs met. Education OT Patient Education: Correct positioning, Modified ADL techniques, Progress toward Goal/Update tx plan, Purpose of tx/functional activities, Reviewed precautions, Rehab process, Transfer techniques Teaching Recipient: Patient Teaching Methods: Demonstration, Discussion Response to Teaching: Verbalize Understanding, Return Demonstration OT Short Term Goals Short Term Goals 1=Demonstrate adherence to instructed precautions during ADL tasks. 2=Patient will verbalize/demonstrate understanding of assistive devices/ modifications for ADL. 3=Patient will improve strength/tolerance for activity to enable patient to perform ADL's. OT Half-Way Goals Half-Way Goals Time Frame: Apr 15, 2018 Additional Goals: 1-Demonstrate ADL Tasks, 2-Verbalize Understanding 1=Demonstrate adherence to instructed precautions during ADL tasks. 2=Patient will verbalize/demonstrate understanding of assistive devices/ modifications for ADL. 3=Patient will improve strength/tolerance for activity to enable patient to perform ADL's. Pt. has met all goals by demonstrating ability to bathe/dress with SBA. Pt. will have family/caregiver at home to assist with these things. No OT ADL equipment needed at this time. OT Education/Plan Problem List/Assessment Assessment: No Skilled OT Needs ID'd Discharge Recommendations Plan/Recommendations: Discharge/Goals Met Therapy D/C Recommendations: Home w/ Family Support, Scheduled Assistance Treatment Plan/Plan of Care Treatment,Training & Education: Yes Treatment Duration: Apr 15, 2018 Frequency: 1 time per week Estimated Hrs Per Day: .5 hour per day Agreement: Yes Rehab Potential: Good Time/GCodes Start Time: 08:55 Stop Time: 09:25 Total Time Billed (hr/min): 30 Billed Treatment Time 1, EVL x 15minutes, ADL x 15minutes JUAN PHAM OT Apr 15, 2018 13:09
--- NOTE | 2018-04-15 16:49 | Progress Note (SOAP) ---
Subjective Date Seen by Provider: Apr 15, 2018 Time Seen by Provider: 07:00 Subjective/Events-last exam POD #1 s/p ACDF. She reports pain not controlled to pain medications. She does have a hx of prior opoid use. She has neck pain and arm pain. She denies issues with swallowing. She denies SOB, CP, fever, chills or nv. Review of Systems General: No Chills Gastrointestinal: Nausea, Vomiting Musculoskeletal: neck pain, arm pain Neurological: No: Weakness, Numbness Objective Exam Vital Signs Date Time Temp Pulse Resp B/P (MAP) Pulse Ox O2 Delivery O2 Flow Rate FiO2 04/15/18 12:00 98.5 71 20 107/60 (76) 98 Room Air 04/15/18 09:00 97 Room Air 04/15/18 08:00 97.7 68 20 106/70 (82) 97 Room Air 04/15/18 04:29 98.1 83 20 126/83 (97) 95 Room Air 04/15/18 00:42 98.7 75 19 111/56 (74) 94 Room Air 04/14/18 19:10 98.2 63 18 114/63 (80) 95 Room Air 04/14/18 18:15 95 Room Air I & O 04/15/18 07:00 Intake Total 3300 ml Output Total 1375 ml Balance 1925 ml Capillary Refill : General Appearance: No Apparent Distress, WD/WN Respiratory: No Accessory Muscle Use, No Respiratory Distress Cardiovascular: Regular Rate, Rhythm, No Edema Neurologic/Psychiatric: Alert, Oriented x3, No Motor/Sensory Deficits Skin: Normal Color Assessment/Plan Assessment/Plan Assess & Plan/Chief Complaint assessment; POD #1 s/p acdf opoid tolerance plan dc morphine c-collar when OOB PT IS at bedside and encouraged calf scd for dvt prophylaxis probable d/c tomorrow Clinical Quality Measures DVT/VTE Risk/Contraindication: Risk Factor Score Per Nursin RFS Level Per Nursing on Admit: 4+=Very High NIKI MARINELLI Apr 15, 2018 16:48
[2018-04-15 16:51] VITALS: BP 100/54
[2018-04-15 20:16] VITALS: BP 109/56
[2018-04-16 00:38] VITALS: BP 100/55
[2018-04-16] MEDS: oxyCODONE/APAP 5/325MG (PERCOCET 5) TABLET PO PRN ×3 (03:58→12:39)
[2018-04-16 04:00] VITALS: BP 101/53
[2018-04-16] MEDS: CYCLOBENZAPRINE 10 MG (FLEXERIL) TAB PO PRN ×2 (06:34→14:34)
[2018-04-16] MEDS: MULTIVIT W/MINERALS TAB (THERAGRAN M) PO SCH (06:34)
[2018-04-16] MEDS: MILK OF MAGNESIA 400 MG/5 ML 30 ML UDC PO SCH (08:13)
[2018-04-16 08:24] VITALS: BP 107/58
[2018-04-16] MEDS: FAMOTIDINE 20 MG (PEPCID) TABLET PO SCH (11:37)
[2018-04-16 12:45] VITALS: BP 117/62
[2018-04-16 16:00] VITALS: BP 102/54
--- NOTE | 2018-04-16 16:45 | Progress Note-Hospitalist ---
Subjective HPI/CC On Admission Date Seen by Provider: Apr 16, 2018 Time Seen by Provider: 16:00 The patient is a 52-year-old white female previously known to me. She has undergone cervical spinal stenosis surgery. She reports that she had bilateral arm dysfunction and weakness. Surgery was yesterday and she already can note improvement. She has been seen by physical therapy to design a postoperative regimen. She also reports that she has had considerable problem with low back pain. She states that she has had neck troubles for some time but 2 falls in the past year have increased her miseries. Multiple modalities were employed in conservative therapy and were unsuccessful. Physical exam: The patient is sitting in the bedside chair. She is alert oriented and pleasant. Lungs are clear to auscultation. CV is regular without murmur. Turbine Attendant is one plus and equal bilaterally. Alternating finger to thumb movements were 2+ and equal bilaterally. Abdomen revealed no abnormalities. Extremities showed no pedal edema. Impression: Status post op cervical stenosis surgery. 2.chronic pain issues. Plan: Proceed with present regimen. 2.expect early discharge. Subjective/Events-last exam Patient is doing well and is up ambulating without assistance. Her voice is strong and she says her arm function is very good. Feels safe to go home. She does complain about having some pain around her temples and in fact on exam she does have some small lumps bilaterally. Objective Exam Vital Signs Vital Signs Date Time Temp Pulse Resp B/P (MAP) Pulse Ox O2 Delivery O2 Flow Rate FiO2 04/16/18 16:00 98.6 79 18 102/54 (70) 98 Room Air Capillary Refill : General Appearance: No Apparent Distress, WD/WN HEENT: Normal ENT Inspection, Other (Bitemporal) Neck: Limited Range of Motion Respiratory: Lungs Clear, Normal Breath Sounds, No Accessory Muscle Use, No Respiratory Distress Cardiovascular: Regular Rate, Rhythm, No Gallop, No Murmur Gastrointestinal: Normal Bowel Sounds, No Organomegaly, Non Tender, Soft Rectal: Deferred Back: Normal Inspection Extremity: Normal Range of Motion, No Pedal Edema Results/Procedures Lab Patient resulted labs reviewed. Assessment/Plan Assessment and Plan Assess & Plan/Chief Complaint Postop day number 3 status post cervical spine fusion doing well but he for discharge Clinical Quality Measures DVT/VTE Risk/Contraindication: Risk Factor Score Per Nursin RFS Level Per Nursing on Admit: 4+=Very High SANDNESS,LILI M MD Apr 16, 2018 16:45
--- NOTE | 2018-04-16 18:09 | Discharge Inst-Simple/Standard ---
Discharge Inst-Standard Discharge Medications New, Converted or Re-Newed RX: RX on Chart Patient Instructions/Follow Up Plan of Care/Instructions/FU: C-COLLAR WHEN OUT OF BED SPINE PRECAUTIONS, DONT BEND LIFT TWIST PUSH OR PULL KEEP INCISION COVERED AND DRY Activity as Tolerated: No Discharge Diet: Regular Diet Return to The Hospital For: SHORTNESS OF BREATH CHEST PAIN WEAKNESS FEVER, CHILLS, NIKI MARINELLI Apr 16, 2018 18:08
[2018-04-16] MEDS ORDERED: CYCL10TA9 PO (18:10)
--- NOTE | 2018-04-16 18:14 | Discharge Summary ---
Diagnosis/Chief Complaint Date of Admission Apr 14, 2018 at 10:00 Date of Discharge Discharge Date: Apr 16, 2018 Admission Diagnosis Admission Diagnosis CERVICAL STENOSIS WITH RADICULOPATHY Discharge Diagnosis SAME Reason Hospital Visit C5-6 ACDF Discharge Summary Hospital Course Hospital Course chuck was admitted for acdf for cervical spondylosis with stenosis and radiculopathy that was referactory to conservative treatment. She tolerated the procedure well. She progressed with PT and on POD #2 her pain was controlled with oral analgesics. She was dismissed home on POD #2 Labs Laboratory Tests 04/14/18 10:08: Urine Oxycodone Screen POSITIVEH, Urine Benzodiazepines Screen POSITIVEH cervical x-rays reviwed: c5-6 acdf Procedures None. Discharge Physical Examination Allergies: Coded Allergies: fentanyl (Unverified Adverse Reaction, Mild, 08/02/16) PATIENT DENIES ALLERGY TO FENTANYL. STATES, "I WORE THE PATCHES AFTER MY GASTRIC SLEEVE SURGERY AND IT WAS FINE. THEY HAD GIVEN ME SEVERAL INJECTION FORMS AND I HAD A CRUSHING HEADACHE FROM THE INJECTION FORM." Uncoded Allergies: tape (Adverse Reaction, Severe, broke out--went to er 2x---, 09/11/16) Vitals & I&Os Vital Signs Date Time Temp Pulse Resp B/P (MAP) Pulse Ox O2 Delivery O2 Flow Rate FiO2 04/16/18 16:00 98.6 79 18 102/54 (70) 98 Room Air General Appearance: Alert, Oriented X3, Cooperative, No Acute Distress Cardiovascular: Regular Rate Extremities: No Clubbing, No Cyanosis, No Edema, Normal Pulses Skin: No Rashes Neuro: Normal Gait, Normal Speech, Strength at 5/5 X4 Ext, Sensation Intact Discharge Home Medications Reviewed and agree with Discharge Medication list on patient's Discharge Instruction sheet Instructions to Patient/Family Please see electronic discharge instructions given to patient. Clinical Quality Measures DVT/VTE Risk/Contraindication: Risk Factor Score Per Nursin RFS Level Per Nursing on Admit: 4+=Very High NIKI MARINELLI Apr 16, 2018 18:14
[2018-04-16 18:37] VITALS: BP 102/54
== END 2018-04-16 18:45 | disposition home or self-care (01) | DRG 473 ==
LOC: 4TH 10:00 → SURG 10:01 → EDSTATUS 12:45 → 4TH 13:00
PROVIDERS: ADMIT Orthopaedic Surgery; ATTEND Orthopaedic Surgery
PROC: 0RG10A0 Fusion of Cervical Vertebral Joint with Interbody Fusion Device, Anterior Approach, Anterior Column, Open Approach (ICD-10-PCS; principal; 2018-04-14 11:12)
DX: M47.22 Other spondylosis with radiculopathy, cervical region (principal); M50.30 Other cervical disc degeneration, unspecified cervical region; Z98.84 Bariatric surgery status; E89.0 Postprocedural hypothyroidism
CPT/HCPCS: 72040; 80306; 84703; 87081; 94664; 94760

== ENCOUNTER → 2018-05-13 | Outpatient (CLI) | payer MEDICARE, MEDICAID ==
[~2018-05-13] MED LIST changes: +CYCL10TA9 PO
[2018-05-13 13:22] LABS: FREE T4 (FREE THYROXINE) 1.2 NG/DL (0.70-1.48)
== END ==
LOC: LAB 12:22
PROVIDERS: ATTEND Internal Medicine Endocrinology, Diabetes & Metabolism
DX: E89.0 Postprocedural hypothyroidism (principal)
CPT/HCPCS: 36415; 84439; 84443

== ENCOUNTER → 2018-08-07 | Outpatient (CLI) | payer MEDICARE, MEDICAID ==
[~2018-08-07] MED LIST changes: -OXYC-197 PO; -OXYC-202 PO; +OXYC1TAB12 PO; +OXYC1TAB87 PO
--- NOTE | 2018-08-07 14:38 | Diagnostic Imaging Report ---
Pelvic ultrasound. Indication: Pelvic pain. The previous pelvic ultrasound exam performed on 04/30/2013 failed to show any sign of an acute pelvic abnormality. The CT of the chest, abdomen and pelvis from 03/21/2018 was also unremarkable for an acute pelvic abnormality. On this exam the uterus is not well visualized. The uterus does not seem to be enlarged measuring 4.6 x 3.7 x 2.4 cm. The endometrial lining is not thickened measuring 2 mm. There is no focal mass involving the uterus to suggest a fibroid. Neither ovary was identified. There was some free fluid in the left adnexa and there appear to be a small 8 mm echogenic density with shadowing. This has the appearance of a calculus. This of uncertain etiology. This does not appear to be within the bladder. In reviewing the previous CT exam this finding was not present. Impression: 1. The uterus is small and there is no focal mass involving the uterus to suggest fibroid. 2. There is no solid pelvic mass identified but there is a small amount of free fluid in the left adnexa. There also appears to a small calcific-like density in this region. This is of uncertain etiology. If further imaging is desired, repeat CT abdomen/pelvis exam would be recommended. Dictated by: Dictated on workstation # [id number]
== END ==
LOC: RAD 09:40 → EEVIPCON 09:40
PROVIDERS: ATTEND Obstetrics & Gynecology
DX: R10.2 Pelvic and perineal pain (principal)
CPT/HCPCS: 76830; 76856

== ENCOUNTER → 2018-08-20 | Outpatient (CLI) | payer MEDICARE, MEDICAID ==
[2018-08-20 09:04] LABS: HEMOGLOBIN 13.5 G/DL (11.5-16.0); RED BLOOD COUNT 4.36 10^6/uL (4.35-5.85); RED CELL DISTRIBUTION WIDTH 12.3 % (10.0-14.5); WHITE BLOOD COUNT 3.2 10^3/uL (4.3-11.0)
[2018-08-20 09:31] LABS: ALANINE AMINOTRANSFERASE 15 U/L (0-55); ALKALINE PHOSPHATASE 92 U/L (40-136); BILIRUBIN,TOTAL 0.4 MG/DL (0.1-1.0); BUN/CREATININE RATIO 11; CALCIUM 9.1 MG/DL (8.5-10.1); CARBON DIOXIDE 25 MMOL/L (21-32); CHLORIDE 108 MMOL/L (98-107); CREATININE SERUM 0.72 MG/DL (0.60-1.30); GFR ESTIMATED > 60; GLUCOSE 103 MG/DL (70-105); POTASSIUM 3.9 MMOL/L (3.6-5.0); SODIUM 142 MMOL/L (135-145); TOTAL PROTEIN 7.1 GM/DL (6.4-8.2)
== END ==
LOC: LAB 08:42
PROVIDERS: ATTEND Internal Medicine Endocrinology, Diabetes & Metabolism
DX: E89.0 Postprocedural hypothyroidism (principal); M85.80 Other specified disorders of bone density and structure, unspecified site; Z98.84 Bariatric surgery status
CPT/HCPCS: 36415; 80053; 82306; 82607; 84443; 85027

== ENCOUNTER → 2018-10-06 | Outpatient (CLI) | payer MEDICARE, MEDICAID | LOC: LAB 09:37 | PROVIDERS: ATTEND Internal Medicine Endocrinology, Diabetes & Metabolism | DX: E89.0 Postprocedural hypothyroidism (principal) | CPT/HCPCS: 36415; 84443 ==

== ENCOUNTER 2018-10-27 13:21 | Outpatient (RCR) | payer MEDICARE, MEDICAID ==
[2018-10-27 14:01] LABS: BASOPHILS % (AUTO) 0 % (0-10); EOSINOPHILS # (AUTO) 0.1 10^3/uL (0.0-0.3); EOSINOPHILS % (AUTO) 3 % (0-10); HEMATOCRIT 43 % (35-52); HEMOGLOBIN 13.8 G/DL (11.5-16.0); LYMPHOCYTES # (AUTO) 1.1 X 10^3 (1.0-4.0); LYMPHOCYTES % (AUTO) 27 % (12-44); MEAN CORPUSCULAR HEMOGLOBIN 31 PG (25-34); MEAN CORPUSCULAR HGB CONC 32 G/DL (32-36); MEAN CORPUSCULAR VOLUME 97 FL (80-99); MEAN PLATELET VOLUME 10.5 FL (7.4-10.4); MONOCYTES # (AUTO) 0.3 X 10^3 (0.0-1.0); MONOCYTES % (AUTO) 6 % (0-12); NEUTROPHILS # (AUTO) 2.6 X 10^3 (1.8-7.8); NEUTROPHILS % (AUTO) 64 % (42-75); PLATELET COUNT 155 10^3/uL (130-400); RED CELL DISTRIBUTION WIDTH 12.6 % (10.0-14.5)
[2018-10-27 14:19] LABS: ALANINE AMINOTRANSFERASE 12 U/L (0-55); ALBUMIN 4.2 GM/DL (3.2-4.5); ALKALINE PHOSPHATASE 75 U/L (40-136); BILIRUBIN,TOTAL 0.7 MG/DL (0.1-1.0); BUN/CREATININE RATIO 17; CALCIUM 8.7 MG/DL (8.5-10.1); CARBON DIOXIDE 22 MMOL/L (21-32); CHLORIDE 105 MMOL/L (98-107); CREATININE SERUM 0.76 MG/DL (0.60-1.30); GFR ESTIMATED > 60; GLUCOSE 98 MG/DL (70-105); POTASSIUM 4.2 MMOL/L (3.6-5.0); SODIUM 139 MMOL/L (135-145); TOTAL PROTEIN 7.5 GM/DL (6.4-8.2)
== END 2019-01-25 | disposition home or self-care (01) ==
LOC: ONC 13:21
PROVIDERS: ATTEND Internal Medicine Hematology & Oncology
DX: C82.50 Diffuse follicle center lymphoma, unspecified site (principal); E66.01 Morbid (severe) obesity due to excess calories; Z92.21 Personal history of antineoplastic chemotherapy; K82.8 Other specified diseases of gallbladder; I10 Essential (primary) hypertension; K64.4 Residual hemorrhoidal skin tags; K64.8 Other hemorrhoids; E03.9 Hypothyroidism, unspecified; R53.82 Chronic fatigue, unspecified; Z98.84 Bariatric surgery status; Z86.19 Personal history of other infectious and parasitic diseases
CPT/HCPCS: 80053; 85025; 99213

== ENCOUNTER 2018-12-09 14:31 | Outpatient (RCR) | payer MEDICARE, MEDICAID | END 2019-01-26 13:56 | disposition home or self-care (01) | PROVIDERS: ATTEND Physician Assistant | DX: M54.16 Radiculopathy, lumbar region (principal) ==

== ENCOUNTER → 2018-12-09 | Outpatient (CLI) | payer MEDICARE, MEDICAID ==
--- NOTE | 2018-12-09 13:35 | Diagnostic Imaging Report ---
PROCEDURE: MRI lumbar spine. TECHNIQUE: Multiplanar, multisequence MRI of the lumbar spine was performed without contrast. INDICATION: Low back pain. COMPARISON: None. FINDINGS: Normal alignment. Vertebral body heights are preserved. Benign hemangioma in the L3 vertebral body. Bone marrow signal is otherwise unremarkable. No abnormal signal in the conus which terminates at L2. Normal morphology of the cauda equina. The visualized abdominal and pelvic contents are unremarkable. L1-L2: No spinal canal, lateral recess or neural foraminal narrowing. L2-L3: Annular disc bulge results in mild bilateral lateral recess narrowing. No spinal canal or neural foraminal narrowing. L3-L4: Annular disc bulge, ligamentous hypertrophy and facet arthropathy all result in mild spinal canal and bilateral lateral recess narrowing. Disc space height loss also contributes to mild right neural foraminal narrowing. L4-L5: Annular disc bulge, ligamentous hypertrophy and facet arthropathy result in mild spinal canal and bilateral lateral recess narrowing. There is moderate right and mild left neural foraminal narrowing. L5-S1: No spinal canal, lateral recess or neural foraminal narrowing. IMPRESSION: 1. Spondylotic changes result in scattered [id number] neural foraminal narrowing as detailed above. 2. No high-grade spinal canal or lateral recess narrowing. 3. No acute osseous findings. Dictated by: Dictated on workstation # [id number]
== END ==
LOC: RAD 12:21
PROVIDERS: ATTEND Physician Assistant
DX: M47.816 Spondylosis without myelopathy or radiculopathy, lumbar region (principal); M48.061 Spinal stenosis, lumbar region without neurogenic claudication; M51.26 Other intervertebral disc displacement, lumbar region; M46.86 Other specified inflammatory spondylopathies, lumbar region
CPT/HCPCS: 72148

== ENCOUNTER → 2018-12-24 | Outpatient (CLI) | payer MEDICARE, MEDICAID ==
--- NOTE | 2018-12-24 13:21 | Diagnostic Imaging Report ---
CLINICAL INDICATION: Patient with focal neurological deficit, pain at base of head, light sensitive. EXAM: Axial CT scan of the brain performed without and with 80 cc of Omnipaque 350 IV contrast. COMPARISON: MRI of the brain performed without and with IV contrast dated 04/18/2015. FINDINGS: There is no evidence of acute cerebral infarct, intracranial hemorrhage, or gross mass effect. There is no abnormal IV contrast enhancement. The brain parenchymal volume appears appropriate for patient's age. There is normal kinsey-white matter distinction. There is no significant midline shift or herniation. The hoh of Servin vascular structures show no gross abnormality as visualized. The dural venous sinuses are unremarkable, as visualized. There is no evidence of hydrocephalus. The basal cisterns are unremarkable. The skull, extracranial soft tissue, and orbits are unremarkable. The paranasal sinuses are unremarkable. Temporal bones show no significant abnormality. IMPRESSION: Unremarkable CT scan of the brain. Dictated by: Dictated on workstation # [id number]
== END ==
LOC: RAD 12:03
PROVIDERS: ATTEND Family Medicine
DX: R51 Headache (principal); R29.818 Other symptoms and signs involving the nervous system
CPT/HCPCS: 70470

== ENCOUNTER → 2019-02-05 | Outpatient (CLI) | payer MEDICARE, MEDICAID ==
[~2019-02-05] MED LIST changes: +HOLD METFORMIN - RECEIVED CONTRAST 20 ML VIAL IV SCH
[2019-02-05 11:46] LABS: BUN/CREATININE RATIO 15; CREATININE SERUM 0.75 MG/DL (0.60-1.30); GFR ESTIMATED > 60
[2019-02-05] MEDS: IOHEXOL 350 MG/ML 100 ML (OMNIPAQUE 350) VIAL IV ONE (12:26)
--- NOTE | 2019-02-05 13:14 | Diagnostic Imaging Report ---
PROCEDURE: CT abdomen and pelvis with contrast. TECHNIQUE: Multiple contiguous axial images were obtained through the abdomen and pelvis after administration of intravenous contrast. Auto Exposure Controls were utilized during the CT exam to meet ALARA standards for radiation dose reduction. INDICATION: Abdominal pain and right lower quadrant pain. Prior CT did show biliary ductal dilatation. This can be further evaluated today. Correlation is made with prior CT from 03/21/2018. The lung bases are clear. The degree of the intrahepatic and extrahepatic biliary ductal dilatation appears to be similar to prior CT. Extrahepatic bile duct is approximately 15 mm compared to 16 mm on prior. Gallbladder is surgically absent. No liver mass is identified. There appear to be some trace gas within the ducts, perhaps owing to incompetent sphincter. The pancreas and spleen are unremarkable. No adrenal mass is identified. Kidneys are unremarkable. Aorta is non-aneurysmal. There appear to be postsurgical changes to the stomach. Bowel loops are nonobstructed. There is moderate stool in the colon. There is no ascites. No lymphadenopathy is seen. The bladder is unremarkable. Uterus unremarkable IMPRESSION: Overall stable CT of the abdomen and pelvis when compared prior CT from 03/21/2018. Intrahepatic and extrahepatic biliary duct dilatation is similar to prior study. No acute features seen. Dictated by: Dictated on workstation # [id number]
== END ==
LOC: RAD 11:14
PROVIDERS: ATTEND Family Medicine
DX: K83.8 Other specified diseases of biliary tract (principal); R10.31 Right lower quadrant pain; Z90.49 Acquired absence of other specified parts of digestive tract
CPT/HCPCS: 36415; 74177; 82565; 84520

== ENCOUNTER → 2019-02-05 | Outpatient (CLI) | payer MEDICARE, MEDICAID ==
[~2019-02-05] MED LIST changes: -HOLD METFORMIN - RECEIVED CONTRAST 20 ML VIAL IV SCH
[2019-02-05 13:00] LABS: BASOPHILS % (AUTO) 0 % (0-10); EOSINOPHILS # (AUTO) 0.1 10^3/uL (0.0-0.3); EOSINOPHILS % (AUTO) 3 % (0-10); HEMATOCRIT 42 % (35-52); HEMOGLOBIN 13.5 G/DL (11.5-16.0); LYMPHOCYTES # (AUTO) 1.2 X 10^3 (1.0-4.0); LYMPHOCYTES % (AUTO) 36 % (12-44); MEAN CORPUSCULAR HEMOGLOBIN 31 PG (25-34); MEAN CORPUSCULAR HGB CONC 32 G/DL (32-36); MEAN CORPUSCULAR VOLUME 95 FL (80-99); MEAN PLATELET VOLUME 9.2 FL (7.4-10.4); MONOCYTES # (AUTO) 0.2 X 10^3 (0.0-1.0); MONOCYTES % (AUTO) 6 % (0-12); NEUTROPHILS # (AUTO) 1.9 X 10^3 (1.8-7.8); NEUTROPHILS % (AUTO) 55 % (42-75); PLATELET COUNT 220 10^3/uL (130-400); RED CELL DISTRIBUTION WIDTH 12.5 % (10.0-14.5); WHITE BLOOD COUNT 3.4 10^3/uL (4.3-11.0)
[2019-02-05 13:25] LABS: ALANINE AMINOTRANSFERASE 19 U/L (0-55); ALKALINE PHOSPHATASE 78 U/L (40-136); BILIRUBIN,TOTAL 0.6 MG/DL (0.1-1.0); BUN/CREATININE RATIO 15; CALCIUM 9.2 MG/DL (8.5-10.1); CARBON DIOXIDE 26 MMOL/L (21-32); CHLORIDE 104 MMOL/L (98-107); CREATININE SERUM 0.73 MG/DL (0.60-1.30); GFR ESTIMATED > 60; GLUCOSE 94 MG/DL (70-105); SODIUM 139 MMOL/L (135-145); TOTAL PROTEIN 7.2 GM/DL (6.4-8.2)
== END ==
LOC: LAB 12:42
PROVIDERS: ATTEND Internal Medicine Endocrinology, Diabetes & Metabolism
DX: E89.0 Postprocedural hypothyroidism (principal); M85.80 Other specified disorders of bone density and structure, unspecified site; G89.4 Chronic pain syndrome; R10.31 Right lower quadrant pain; Z98.84 Bariatric surgery status
CPT/HCPCS: 36415; 80053; 82306; 82607; 84443; 85025

== ENCOUNTER → 2019-02-13 | Outpatient (CLI) | payer MEDICARE, MEDICAID ==
--- NOTE | 2019-02-13 10:59 | Diagnostic Imaging Report ---
PROCEDURE: MR imaging cervical spine without contrast. TECHNIQUE: Multiplanar, multisequence MR imaging of the cervical spine was performed without contrast. INDICATION: Neck pain as well as bilateral hand twitching. Patient has prior history of cervical spine surgery in March 2018. COMPARISON: Correlation is made with preop MRI of the cervical spine from 04/25/2017. FINDINGS: Alignment is normal. There are postop changes of ACDF with anterior plate and screws transfixing the C5-6 level. Hardware does create moderate artifact obscuring these levels. Remaining cervical vertebrae demonstrate normal marrow signal intensity. Fairly normal height of the disc is seen. Cervical cord demonstrates normal homogeneous signal intensity and normal morphology. Craniocervical junction is unremarkable. C2-3: Central canal and neural foramina are widely patent. C3-4: Central canal and neural foramina are widely patent. C4-5: Central canal and neural foramina are widely patent. C5-6: Right-sided uncovertebral joint degenerative change does produce mild narrowing of the right neural foramen. Left neural foramen is patent. The central canal is patent. C6-7: No central canal or neural foraminal stenosis is identified. C7-T1: No central canal or neural foraminal narrowing is seen. IMPRESSION: Postop changes of C5-6 ACDF. There is mild right neural foraminal narrowing at the C5-6 level due to uncovertebral joint degenerative change. The study is otherwise unremarkable. Dictated by: Dictated on workstation # [id number]
== END ==
LOC: RAD 09:22
PROVIDERS: ATTEND Pain Medicine Interventional Pain Medicine
DX: M48.02 Spinal stenosis, cervical region (principal); M47.812 Spondylosis without myelopathy or radiculopathy, cervical region; Z98.1 Arthrodesis status
CPT/HCPCS: 72141

== ENCOUNTER 2021-01-19 13:43 | Inpatient (IN) | payer MEDICAID ==
[~2021-01-19] VITALS: Ht 175.2 cm; Wt 140.1 kg
[~2021-01-19 13:43] MED LIST changes: +ASPI-1238 PO; -ASPI-983 PO; +OXYC-556 PO; -PANT40TA3 PO; +PANT40TA52 PO
[2021-01-19 14:04] LABS: BASOPHILS % (AUTO) 1 % (0-10); EOSINOPHILS # (AUTO) 0.1 10^3/uL (0.0-0.3); EOSINOPHILS % (AUTO) 2 % (0-10); HEMATOCRIT 46 % (35-52); HEMOGLOBIN 14.9 g/dL (11.5-16.0); LYMPHOCYTES % (AUTO) 35 % (12-44); MEAN CORPUSCULAR HEMOGLOBIN 32 pg (25-34); MEAN CORPUSCULAR HGB CONC 33 g/dL (32-36); MEAN CORPUSCULAR VOLUME 98 fL (80-99); MEAN PLATELET VOLUME 8.8 fL (9.0-12.2); MONOCYTES # (AUTO) 0.2 10^3/uL (0.0-1.0); MONOCYTES % (AUTO) 4 % (0-12); NEUTROPHILS # (AUTO) 3.3 10^3/uL (1.8-7.8); NEUTROPHILS % (AUTO) 58 % (42-75); PLATELET COUNT 359 10^3/uL (130-400); WHITE BLOOD COUNT 5.7 10^3/uL (4.3-11.0)
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
[2021-01-19 14:10] LABS: CALCIUM 7.6 MG/DL (8.5-10.1)
[2021-01-19 14:11] LABS: TOTAL PROTEIN 7.3 GM/DL (6.4-8.2)
[2021-01-19 14:13] LABS: BILIRUBIN,TOTAL 0.7 MG/DL (0.1-1.0)
[2021-01-19 14:15] LABS: CREATININE SERUM 1.33 MG/DL (0.60-1.30)
[2021-01-19 14:15] LABS: AMPHETAMINE SCREEN, URINE POSITIVE (NEGATIVE); BARBITURATE SCREEN URINE NEGATIVE (NEGATIVE); BENZODIAZEPINES SCREEN URINE NEGATIVE (NEGATIVE); CANNABINOID SCREEN, URINE POSITIVE (NEGATIVE); COCAINE SCREEN URINE NEGATIVE (NEGATIVE); METHADONE STAT NEGATIVE (NEGATIVE); METHAMPHETAMINE SCREEN URINE S POSITIVE (NEGATIVE); OPIATE SCREEN URINE NEGATIVE (NEGATIVE); OXYCODONE STAT NEGATIVE (NEGATIVE); PROPOXYPHENE STAT NEGATIVE (NEGATIVE); TRICYCLIC ANTIDEPRESSANTS SCRE NEGATIVE (NEGATIVE)
[2021-01-19 14:17] LABS: MAGNESIUM 2.3 MG/DL (1.6-2.4)
[2021-01-19 14:18] LABS: INR 0.9 (0.8-1.4); PROTHROMBIN TIME PATIENT 12.8 SEC (12.2-14.7)
[2021-01-19 14:19] LABS: SALICYLATE < 5.0 MG/DL (5.0-20.0)
[2021-01-19 14:20] LABS: ACETAMINOPHEN < 10 UG/ML (10-30)
--- NOTE | 2021-01-19 14:48 | Diagnostic Imaging Report ---
INDICATION: Chest pain and shortness of breath. Frontal chest obtained at 02:31 p.m. and compared to 09/11/2016. Heart is normal in size. Aorta appears tortuous and/or ectatic, this may in part be due to portable technique. There is no focal infiltrate or pneumothorax or pleural fluid. IMPRESSION: No focal infiltrate or pleural fluid. Aorta appears tortuous and/or ectatic and this may in part be due to portable technique. Consider follow-up as warranted. Dictated by: Dictated on workstation # [id number]
[2021-01-19] MEDS ORDERED: ASPIRIN 81 MG CHEW (CHILDREN'S ASA) PO ONE (15:15)
[2021-01-19] MEDS ORDERED: CLOPIDOGREL 300 MG (PLAVIX) TABLET PO ONE (15:15)
[2021-01-19] MEDS ORDERED: LEVOTHYROXINE 100 MCG (LEVOTHROID) TAB PO ONE (15:30)
[2021-01-19] MEDS ORDERED: LEVOTHYROXINE 75 MCG (LEVOTHROID) TABLET PO ONE (15:30)
[2021-01-19] MEDS ORDERED: ANTACID SUSP 30 ML UDC (MYLANTA) PO ONE (16:00)
[2021-01-19] MEDS ORDERED: LIDOCAINE 2% VISCOUS 15 ML UDC PO ONE (16:00)
[2021-01-19] MEDS ORDERED: CATHETER FLUSH 10 ML SYR IV PRN (16:30)
[2021-01-19] MEDS ORDERED: NS IV 1000 ML 0 ML ONE (16:48)
[2021-01-19] MEDS ORDERED: LIDOCAINE 1% INJ 20 ML 20 ML VIAL ONE (16:48)
[2021-01-19] MEDS ORDERED: HEParin (CATH LAB) 0 ML IV ONE (16:48)
[2021-01-19] MEDS ORDERED: MIDAZOLAM 5 MG/5 ML (VERSED) VIAL ONE (16:48)
--- NOTE | 2021-01-19 16:57 | Consultation-Cardiology ---
HPI-Cardiology Cardiology Consultation: Date of Consultation 01/19/21 Time Seen by a Provider: 04:50 Date of Admission 01-19-21 Attending Physician Jesusita Swan DO Admitting Physician Jameel Liz DO Consulting Physician Vern Lerner MD HPI: Chief Complaint: SVT Ms. Michelle is a 55 yr old female admitted to ICU 12 from the ED with c/o episode of palpitations which started this morning after she got out of bed. She states she felt her heart flip/flop, then it just started racing. Lasted for hours and finally she had her daughter call EMS. She reports nausea, diaphoresis, SOB, weakness and discomfort in between her shoulder blades. She reports she has not been taking her thyroid replacement for approx 2 months, but did take a dose this morning. She denies any mauricio syncope. No c/o LE swelling. No c/o CP. She states her symptoms have resolved. She reports she did use methamphetamine, smoked, 2 days ago. Review of Systems-Cardiology Review of Systems Constitutional: chills; No fever; malaise Eyes: No vision change Ears/Nose/Throat: No epistaxis, No recent hearing loss Respiratory: As described under HPI Cardiovascular: As described under HPI Gastrointestinal: As described under HPI Genitourinary: No dysuria Musculoskeletal: no symptoms reported Skin: No rash on exposed areas, No ulcerations on exposed areas Psychiatric/Neurological: depression; No seizure, No focal weakness, No syncope Hematologic: No bleeding abnormalities UYS-Cxwayh-Jzrqqy Hx Patient Social History Smoking Status: Former Smoker Have you traveled recently?: No Alcohol Use?: Yes Substance type: Methamphetamine, Marijuana Pt feels they are or have been: No Immunizations Up To Date Tetanus Booster (TDap): Unknown Date of Pneumonia Vaccine: Jul 02, 2016 Date of Influenza Vaccine: Aug 03, 2016 Past Medical History PMH As described under Assessment. Family Medical History Family Medical History: She reports her father had CAD. Family History: Patient reports no known family medical history. Allergies and Home Medications Allergies Coded Allergies: fentanyl (Unverified Adverse Reaction, Mild, 08/02/16) PATIENT DENIES ALLERGY TO FENTANYL. STATES, "I WORE THE PATCHES AFTER MY GASTRIC SLEEVE SURGERY AND IT WAS FINE. THEY HAD GIVEN ME SEVERAL INJECTION FORMS AND I HAD A CRUSHING HEADACHE FROM THE INJECTION FORM." Uncoded Allergies: tape (Adverse Reaction, Severe, broke out--went to er 2x---, 09/11/16) Home Medications Alprazolam 2 Mg Tablet, 2 MG PO Q8H PRN for ANXIETY, (Reported) Cholecalciferol (Vitamin D3) 1,000 Unit Tablet, 1,000 UNIT PO DAILY, (Reported) Cyanocobalamin (Vitamin B-12) 5,000 Mcg/1 Ml Drops, 5,000 MCG SL Q48H, (Reported) Cyclobenzaprine HCl 10 Mg Tablet, 10 MG PO TID PRN for SPASMS Prescribed by: NIKI MARINELLI on 04/16/18 1810 Gabapentin 400 Mg Capsule, 1,200 MG PO Q8H, (Reported) TAKES 3 (400MG) CAPSULES Levothyroxine Sodium 175 Mcg Tablet, 175 MCG PO DAILY, (Reported) Multivits-Min/Iron/FA/Lutein 1 Each Tablet, 1 TAB PO DAILY, (Reported) Oxycodone HCl/Acetaminophen 1 Each Tablet, 1 TAB PO Q6H PRN for PAIN-MODERATE Prescribed by: NIKI MARINELLI on 04/15/18 0712 Pantoprazole Sodium 40 Mg Tablet.dr, 40 MG PO DAILY, (Reported) Physical Exam-Cardiology Physical Exam Vital Signs/I&O 01/19/21 01/19/21 01/19/21 01/19/21 19:58 20:00 20:00 21:00 Temp 36.3 Pulse 87 82 B/P (MAP) 113/76 (88) 125/74 (91) Pulse Ox 98 100 98 O2 Delivery Room Air Room Air Room Air 01/19/21 01/19/21 01/19/21 01/20/21 22:00 23:00 23:59 00:00 Pulse 80 78 82 Resp 20 17 B/P (MAP) 115/69 (84) 125/69 (87) 119/63 (81) Pulse Ox 98 96 95 96 O2 Delivery Room Air Room Air Room Air Room Air 01/20/21 01/20/21 01/20/21 01/20/21 01:00 01:00 02:00 03:00 Pulse 63 66 70 73 Resp 16 12 20 B/P (MAP) 108/65 (79) 94/63 (73) 104/74 (84) Pulse Ox 97 96 96 O2 Delivery Room Air Room Air Room Air 401/20/21 01/20/21 01/20/21 04:00 04:00 05:00 06:00 Pulse 83 67 65 Resp 16 13 12 B/P (MAP) 122/77 (92) 109/62 (78) 98/68 (78) Pulse Ox 96 95 96 96 O2 Delivery Room Air Room Air Room Air Room Air 01/20/21 01/20/21 07:00 07:00 Pulse 65 69 Resp 13 B/P (MAP) 97/62 (74) Pulse Ox 97 O2 Delivery Room Air 01/20/21 00:00 Intake Total 400 ml Output Total 450 ml Balance -50 ml Capillary Refill : Less Than 3 Seconds Constitutional: AAO x 3, well-developed, well-nourished HEENT: PERRL, hearing is well preserved, oral hygience is good Neck: No carotid bruit; carotid pulses are 2 + bilaterally Respiratory: No accessory muscle use, No respiratory distress; chest expansion is symmetric, chest is bilaterally symmetric, lungs clear to auscultation Cardiovascular: regular rate-rhythm; No JVD; S1 and S2 Gastrointestinal: No tender; soft, round, audible bowel sounds Extremities: no lower extremity edema bilateral Neurologic/Psychiatric: grossly intact (moves all extremities) Skin: No rash on exposed areas, No ulcerations on exposed areas Data Review Labs Laboratory Tests 01/19/21 13:49: White Blood Count 5.7, Red Blood Count 4.69, Hemoglobin 14.9, Hematocrit 46, Mean Corpuscular Volume 98, Mean Corpuscular Hemoglobin 32, Mean Corpuscular Hemoglobin Concent 33, Red Cell Distribution Width 13.3, Platelet Count 359, Mean Platelet Volume 8.8L, Immature Granulocyte % (Auto) 0, Neutrophils (%) (Auto) 58, Lymphocytes (%) (Auto) 35, Monocytes (%) (Auto) 4, Eosinophils (%) (Auto) 2, Basophils (%) (Auto) 1, Neutrophils # (Auto) 3.3, Lymphocytes # (Auto) 2.0, Monocytes # (Auto) 0.2, Eosinophils # (Auto) 0.1, Basophils # (Auto) 0.0, Immature Granulocyte # (Auto) 0.0, Prothrombin Time 12.8, INR Comment 0.9, Activated Partial Thromboplast Time 33, D-Dimer < 0.27, Sodium Level 135, Potassium Level 4.0, Chloride Level 101, Carbon Dioxide Level 20L, Anion Gap 14, Blood Urea Nitrogen 15, Creatinine 1.33H, Estimat Glomerular Filtration Rate 41, BUN/Creatinine Ratio 11, Glucose Level 153H, Calcium Level 7.6L, Corrected Calcium 7.6L, Magnesium Level 2.3, Total Bilirubin 0.7, Aspartate Amino Transf (AST/SGOT) 49H, Alanine Aminotransferase (ALT/SGPT) 61H, Alkaline Phosphatase 82 , Myoglobin 111.8H, Troponin I < 0.028, Total Protein 7.3, Albumin 4.0, Thyroid Stimulating Hormone (TSH) 151.09H, Free Thyroxine 0.40L, Salicylates Level < 5.0L, Acetaminophen Level < 10L, Serum Alcohol < 10 01/19/21 13:55: Urine Opiates Screen NEGATIVE, Urine Oxycodone Screen NEGATIVE, Urine Methadone Screen NEGATIVE, Urine Propoxyphene Screen NEGATIVE, Urine Barbiturates Screen NEGATIVE, Ur Tricyclic Antidepressants Screen NEGATIVE, Urine Phencyclidine Screen NEGATIVE, Urine Amphetamines Screen POSITIVEH, Urine Methamphetamines Screen POSITIVEH, Urine Benzodiazepines Screen NEGATIVE, Urine Cocaine Screen NEGATIVE, Urine Cannabinoids Screen POSITIVEH 01/20/21 00:25: White Blood Count 5.2, Red Blood Count 4.29, Hemoglobin 13.8, Hematocrit 41, Mean Corpuscular Volume 96, Mean Corpuscular Hemoglobin 32, Mean Corpuscular Hemoglobin Concent 34, Red Cell Distribution Width 13.2, Platelet Count 251, Mean Platelet Volume 8.9L, Immature Granulocyte % (Auto) 0, Neutrophils (%) (Auto) 61, Lymphocytes (%) (Auto) 31, Monocytes (%) (Auto) 5, Eosinophils (%) (Auto) 2, Basophils (%) (Auto) 1, Neutrophils # (Auto) 3.2, Lymphocytes # (Auto) 1.6, Monocytes # (Auto) 0.3, Eosinophils # (Auto) 0.1, Basophils # (Auto) 0.0, Immature Granulocyte # (Auto) 0.0, Sodium Level 136, Potassium Level 4.1, Chloride Level 104, Carbon Dioxide Level 17L, Anion Gap 15H, Blood Urea Nitrogen 16, Creatinine 0.99, Estimat Glomerular Filtration Rate 58, BUN/Creatinine Ratio 16, Glucose Level 85, Calcium Level 8.1L, Magnesium Level 2.3, Troponin I 0.428*H, Phosphorus Level 4.1, Triglycerides Level 111, Cholesterol Level 282H, LDL Cholesterol Direct 199H, VLDL Cholesterol 22, HDL Cholesterol 84H Radiology NAME: MAGGIE LANDA [facility] REC#: [id number] PT STATUS: ADM IN : 1965 PHYSICIAN: NIKI LANDAVERDE MD ADMIT DATE: 01/19/21/ICU Signed Date of Exam:01/19/21 CHEST 1 VIEW, AP/PA ONLY INDICATION: Chest pain and shortness of breath. Frontal chest obtained at 02:31 p.m. and compared to 09/11/2016. Heart is normal in size. Aorta appears tortuous and/or ectatic, this may in part be due to portable technique. There is no focal infiltrate or pneumothorax or pleural fluid. IMPRESSION: No focal infiltrate or pleural fluid. Aorta appears tortuous and/or ectatic and this may in part be due to portable technique. Consider follow-up as warranted. Dictated by: Dictated on workstation # [id number] Dict: 01/19/21 1444 Trans: 01/19/21 1632 [facility] [id number] Interpreted by: KASSANDRA STATON MD Electronically signed by: KASSANDRA STATON MD 01/19/21 1632 ECG Impression ECG Initial ECG Rhythm: Normal Sinus A/P-Cardiology Assessment/Admission Diagnosis SVT - seen on tele strips from EMS Cardiac cath of Aug [address] Rome showed mild CAD Echocardiogram of Aug [address] Rome showed LVEF 60%. PASP 25 mmhg Methamphetamine and marijuana abuse ( last usage 2 days ago) Hypothyroidism on lab of 01-19-21: H/o thyroidectomy - has been non-compliant with thyroid replacement (followed by Dr. Hansen) H/o Non-Hodking's lymphoma - completed chemo in 2005 GERD Depression Discussion and Recomendations SVT seen on tele strips from EMS - has converted to SR No c/o CP, normal troponin thus far Echocardiogram to eval structure and function Hypothyroidism on lab of 01-19-21 - has not been compliant with thyroid re placement - management per medical services Monitor lab Replace electrolytes as indicated Advised immediate and complete methamphetamine/marijuana usage Further recs will be based on her hospital course We would like to thank medical services for this consult Clinical Quality Measures AMI/AHF: ASA po Prior to arrival: UJANITA Mclean Jan 19, 2021 16:57
--- NOTE | 2021-01-19 18:01 | History & Physical-Hospitalist ---
History of Present Illness HPI/Chief Complaint CC: Palpitations HPI: This is a 55yoWF who presents to the ER with 3 hours of palpitations and was found to have SVT. Patient uses meth. Currently she is trying to order her meal and does not get off the phone to speak to me. Source: patient Exam Limitations: no limitations Date Seen 01/19/21 Time Seen by a Provider: 18:30 Attending Physician Jesusita Swan DO PCP Jameel Liz DO Referring Physician Date of Admission Jan 19, 2021 at 15:02 Home Medications & Allergies Home Medications Reviewed patient Home Medication Reconciliation performed by pharmacy medication reconciliations lead manufacturing technician and/or nursing. Patients Allergies have been reviewed. Allergies Allergies Coded Allergies fentanyl (Unverified Adverse Reaction, Mild, 08/02/16) PATIENT DENIES ALLERGY TO FENTANYL. STATES, "I WORE THE PATCHES AFTER MY GASTRIC SLEEVE SURGERY AND IT WAS FINE. THEY HAD GIVEN ME SEVERAL INJECTION FORMS AND I HAD A CRUSHING HEADACHE FROM THE INJECTION FORM." Uncoded Allergies tape ( Adverse Reaction, Severe, broke out--went to er 2x---, 09/11/16) Patient Social History Marrital Status: single Employed/Student: unemployed Tobacco Use?: No Smoking Status: Former Smoker Use of E-Cig and/or Vaping dev: No Substance type: Methamphetamine, Marijuana STATES SHE SMOKED METH FOR THE FIRST TIME IN 16 YEARS 2 DAYS AGO. Substance frequency: Once in a while Alcohol Use?: Yes Alcohol type: Beer Alcohol Frequency: Couple times a week Pt stated abuse/neglect: No Immunizations Up To Date Influenza Vaccine Up-to-Date: No; Not Current Tetanus Booster (TDap): Unknown Hepatitis A: No Hepatitis B: No TB Skin Test: None Date of Pneumonia Vaccine: Jul 02, 2016 Current Status status: No status: No Do you have an Advance Directi: No Communicates: Verbally Primary Language: Nicaraguan Preferred Spoken Language: Nicaraguan Is interpretation needed?: No Sensory deficits: Vision impairment Review of Systems Constitutional: see HPI Cardiovascular: palpitations Physical Exam Physical Exam Vital Signs Vital Signs - First Documented 01/19/21 13:43 Temp 34.5 Pulse 78 Resp 12 B/P (MAP) 120/72 (88) Pulse Ox 97 O2 Delivery Nasal Cannula O2 Flow Rate 3.00 Capillary Refill : Less Than 3 Seconds Height, Weight, BMI Height: 5'9.00" Weight: 231lbs. 0.0oz. 104.218439zg; 45.41 BMI Method:Stated General Appearance: No Apparent Distress, Chronically ill, Obese Neurologic/Psychiatric: Alert, Oriented x3 Results Results/Procedures Labs Laboratory Tests 01/19/21 13:49 01/20/21 00:25 Patient resulted labs reviewed. Assessment/Plan Admission Diagnosis Assessment: SVT Meth use Plan: Supportive care Admission Status: Inpatient Order (span 2 midnights) Reason for Inpatient Admission: svt Clinical Quality Measures AMI/AHF: ASA po Prior to arrival: JESUSITA Manriquez DO Jan 19, 2021 18:01
--- NOTE | 2021-01-19 18:20 | Consultation-Cardiology ---
HPI-Cardiology Cardiology Consultation: Date of Consultation 01/19/21 Time Seen by a Provider: 17:35 Date of Admission Attending Physician Jesusita Swan DO Admitting Physician Jameel Liz DO Consulting Physician DAVID MOY MD, FACP, FACC HPI: Chief Complaint: Reason for consultation: SVT HPI Ms. Gracia is a 55 yr old female admitted to ICU 12 from the ED with c/o episode of palpitations which started this morning after she got out of bed. She states she felt her heart flip/flop, then it just started racing. Lasted for hours and finally she had her daughter call EMS. She reports nausea, diaphoresis, SOB, weakness and discomfort in between her shoulder blades. She reports she has not been taking her thyroid replacement for approx 2 months, but did take a dose this morning. She denies any mauricio syncope. No c/o LE swelling. No c/o CP. She states her symptoms have resolved. She reports she did use methamphetamine, smoked, 2 days ago. Review of Systems-Cardiology Review of Systems Constitutional: chills; No fever; malaise Eyes: No vision change Ears/Nose/Throat: No epistaxis, No recent hearing loss Respiratory: As described under HPI Cardiovascular: As described under HPI Gastrointestinal: As described under HPI Genitourinary: No dysuria Musculoskeletal: no symptoms reported Skin: No rash on exposed areas, No ulcerations on exposed areas Psychiatric/Neurological: depression; No seizure, No focal weakness, No syncope Hematologic: No bleeding abnormalities [facility]N-[id number] Hx Patient Social History Smoking Status: Former Smoker Have you traveled recently?: No Alcohol Use?: Yes Substance type: Methamphetamine, Marijuana Pt feels they are or have been: No Immunizations Up To Date Tetanus Booster (TDap): Unknown Date of Pneumonia Vaccine: Jul 02, 2016 Date of Influenza Vaccine: Aug 03, 2016 Past Medical History PMH As described under Assessment. Family Medical History Family Medical History: She reports her father had CAD. Family History: Patient reports no known family medical history. Allergies and Home Medications Allergies Coded Allergies: fentanyl (Unverified Adverse Reaction, Mild, 08/02/16) PATIENT DENIES ALLERGY TO FENTANYL. STATES, "I WORE THE PATCHES AFTER MY GASTRIC SLEEVE SURGERY AND IT WAS FINE. THEY HAD GIVEN ME SEVERAL INJECTION FORMS AND I HAD A CRUSHING HEADACHE FROM THE INJECTION FORM." Uncoded Allergies: tape (Adverse Reaction, Severe, broke out--went to er 2x---, 09/11/16) Home Medications Alprazolam 2 Mg Tablet, 2 MG PO Q8H PRN for ANXIETY, (Reported) Cholecalciferol (Vitamin D3) 1,000 Unit Tablet, 1,000 UNIT PO DAILY, (Reported) Cyanocobalamin (Vitamin B-12) 5,000 Mcg/1 Ml Drops, 5,000 MCG SL Q48H, (Reported) Cyclobenzaprine HCl 10 Mg Tablet, 10 MG PO TID PRN for SPASMS Prescribed by: NIKI MARINELLI on 04/16/18 1810 Gabapentin 400 Mg Capsule, 1,200 MG PO Q8H, (Reported) TAKES 3 (400MG) CAPSULES Levothyroxine Sodium 175 Mcg Tablet, 175 MCG PO DAILY, (Reported) Multivits-Min/Iron/FA/Lutein 1 Each Tablet, 1 TAB PO DAILY, (Reported) Oxycodone HCl/Acetaminophen 1 Each Tablet, 1 TAB PO Q6H PRN for PAIN-MODERATE Prescribed by: NIKI MARINELLI on 04/15/18 0712 Pantoprazole Sodium 40 Mg Tablet.dr, 40 MG PO DAILY, (Reported) Patient Home Medication List Home Medication List Reviewed: Yes Physical Exam-Cardiology Physical Exam Vital Signs/I&O 01/19/21 01/19/21 01/19/21 01/19/21 13:43 13:45 16:30 16:30 Temp 34.5 Pulse 78 69 69 Resp 12 21 B/P (MAP) 120/72 (88) 109/74 (86) Pulse Ox 97 98 100 O2 Delivery Nasal Cannula Nasal Cannula Room Air O2 Flow Rate 3.00 4.00 01/19/21 01/19/21 01/19/21 01/19/21 16:45 17:00 17:11 17:15 Pulse 77 67 68 Resp 39 B/P (MAP) 106/57 (73) 115/75 (88) 107/79 (88) Pulse Ox 92 99 98 97 O2 Delivery Room Air Room Air Room Air Room Air 01/19/21 17:30 Pulse 68 B/P (MAP) 108/87 (94) Pulse Ox 93 O2 Delivery Room Air Capillary Refill : Less Than 3 Seconds Constitutional: AAO x 3, well-developed, well-nourished HEENT: PERRL, hearing is well preserved, oral hygience is good Neck: No carotid bruit; carotid pulses are 2 + bilaterally Respiratory: No accessory muscle use, No respiratory distress; chest expansion is symmetric, chest is bilaterally symmetric, lungs clear to auscultation Cardiovascular: regular rate-rhythm; No JVD; S1 and S2 Gastrointestinal: No tender; soft, round, audible bowel sounds Extremities: no lower extremity edema bilateral Neurologic/Psychiatric: grossly intact (moves all extremities) Skin: No rash on exposed areas, No ulcerations on exposed areas Data Review Labs Laboratory Tests 01/19/21 13:49: White Blood Count 5.7, Red Blood Count 4.69, Hemoglobin 14.9, Hematocrit 46, Mean Corpuscular Volume 98, Mean Corpuscular Hemoglobin 32, Mean Corpuscular Hemoglobin Concent 33, Red Cell Distribution Width 13.3, Platelet Count 359, Mean Platelet Volume 8.8L, Immature Granulocyte % (Auto) 0, Neutrophils (%) (Auto) 58, Lymphocytes (%) (Auto) 35, Monocytes (%) (Auto) 4, Eosinophils (%) (Auto) 2, Basophils (%) (Auto) 1, Neutrophils # (Auto) 3.3, Lymphocytes # (Auto) 2.0, Monocytes # (Auto) 0.2, Eosinophils # (Auto) 0.1, Basophils # (Auto) 0.0, Immature Granulocyte # (Auto) 0.0, Prothrombin Time 12.8, INR Comment 0.9, Activated Partial Thromboplast Time 33, D-Dimer < 0.27, Sodium Level 135, Potassium Level 4.0, Chloride Level 101, Carbon Dioxide Level 20L, Anion Gap 14, Blood Urea Nitrogen 15, Creatinine 1.33H, Estimat Glomerular Filtration Rate 41, BUN/Creatinine Ratio 11, Glucose Level 153H, Calcium Level 7.6L, Corrected Calcium 7.6L, Magnesium Level 2.3, Total Bilirubin 0.7, Aspartate Amino Transf (AST/SGOT) 49H, Alanine Aminotransferase (ALT/SGPT) 61H, Alkaline Phosphatase 82, Myoglobin 111.8H, Troponin I < 0.028, Total Protein 7.3, Albumin 4.0, Thyroid Stimulating Hormone (TSH) 151.09H, Free Thyroxine 0.40L, Salicylates Level < 5.0L, Acetaminophen Level < 10L, Serum Alcohol < 10 01/19/21 13:55: Urine Opiates Screen NEGATIVE, Urine Oxycodone Screen NEGATIVE, Urine Methadone Screen NEGATIVE, Urine Propoxyphene Screen NEGATIVE, Urine Barbiturates Screen NEGATIVE, Ur Tricyclic Antidepressants Screen NEGATIVE, Urine Phencyclidine Screen NEGATIVE, Urine Amphetamines Screen POSITIVEH, Urine Methamphetamines Screen POSITIVEH, Urine Benzodiazepines Screen NEGATIVE, Urine Cocaine Screen NEGATIVE, Urine Cannabinoids Screen POSITIVEH A/P-Cardiology Assessment/Admission Diagnosis SVT, 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 Rome showed mild CAD Echocardiogram of Aug [address] Rome showed LVEF 60%. PASP 25 mmhg Methamphetamine and marijuana abuse ( last usage 2 days ago) Hypothyroidism on lab of 01-19-21: - H/o thyroidectomy - has been non-compliant with thyroid replacement (followed by Dr. Hansen) H/o Non-Hodking's lymphoma - completed chemo in 2005 GERD Depression Discussion and Recomendations Long-acting dilt to control AVNRT No c/o CP, normal troponin thus far Echocardiogram to eval structure and function Hypothyroidism on lab of 01-19-21 - has not been compliant with thyroid replacement - management per medical services Monitor lab Replace electrolytes as indicated Advised immediate and complete methamphetamine/marijuana usage Further recs will be based on her hospital course We would like to thank Medical services for this consult Clinical Quality Measures AMI/AHF: ASA po Prior to arrival: DAVID Rodríguez MD FACP FACC CCDS Jan 19, 2021 18:20
[2021-01-19] MEDS ORDERED: LEVOTHYROXINE 75 MCG (LEVOTHROID) TABLET ONE (18:25)
[2021-01-19] MEDS ORDERED: LEVOTHYROXINE 100 MCG (LEVOTHROID) TAB ONE (18:25)
[2021-01-19] MEDS: ENOXAPARIN 40 MG/0.4 ML (LOVENOX) SYR SC SCH (18:34)
[2021-01-19] MEDS: LACTATED RINGERS 1,000 ML IV SCH (18:34)
[2021-01-19] MEDS ORDERED: CALCIUM CARBONATE 500 MG (TUMS) TAB.CHEW ONE (20:59)
[2021-01-19] MEDS ORDERED: CALCIUM CARBONATE 500 MG (TUMS) TAB.CHEW PO PRN (21:00)
[2021-01-20 00:43] LABS: BASOPHILS % (AUTO) 1 % (0-10); EOSINOPHILS # (AUTO) 0.1 10^3/uL (0.0-0.3); EOSINOPHILS % (AUTO) 2 % (0-10); HEMATOCRIT 41 % (35-52); HEMOGLOBIN 13.8 g/dL (11.5-16.0); LYMPHOCYTES # (AUTO) 1.6 10^3/uL (1.0-4.0); LYMPHOCYTES % (AUTO) 31 % (12-44); MEAN CORPUSCULAR HEMOGLOBIN 32 pg (25-34); MEAN CORPUSCULAR HGB CONC 34 g/dL (32-36); MEAN CORPUSCULAR VOLUME 96 fL (80-99); MEAN PLATELET VOLUME 8.9 fL (9.0-12.2); MONOCYTES # (AUTO) 0.3 10^3/uL (0.0-1.0); MONOCYTES % (AUTO) 5 % (0-12); NEUTROPHILS # (AUTO) 3.2 10^3/uL (1.8-7.8); NEUTROPHILS % (AUTO) 61 % (42-75); PLATELET COUNT 251 10^3/uL (130-400); WHITE BLOOD COUNT 5.2 10^3/uL (4.3-11.0)
[2021-01-20] MEDS: inSUlin ASPART (NovoLOG) 1 UNIT/0.01 ML (CHARGE PER UNIT) SC SCH ×3 (00:45→13:28)
[2021-01-20] MEDS: LACTATED RINGERS 1,000 ML IV SCH ×2 (00:46→08:39)
[2021-01-20 01:35] LABS: POTASSIUM 4.1 MMOL/L (3.6-5.0)
[2021-01-20 01:36] LABS: CALCIUM 8.1 MG/DL (8.5-10.1)
[2021-01-20 01:40] LABS: CREATININE SERUM 0.99 MG/DL (0.60-1.30); PHOSPHORUS 4.1 MG/DL (2.3-4.7)
[2021-01-20 01:42] LABS: MAGNESIUM 2.3 MG/DL (1.6-2.4)
[2021-01-20 01:57] LABS: TRIGLYCERIDES 111 MG/DL (<150); VLDL CHOLESTEROL 22 MG/DL (5-40)
[2021-01-20 02:02] LABS: CHOLESTEROL 282 MG/DL (< 200); HDL CHOLESTEROL 84 MG/DL (40-60)
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
[2021-01-20] MEDS ORDERED: POTASSIUM CL 10MEQ/50ML IVPB 50 ML IV SCH (06:00)
[2021-01-20] MEDS ORDERED: MAGNESIUM 1 GM/100 ML IVPB 100 ML IV SCH (06:00)
[2021-01-20] MEDS ORDERED: KCL 20 MEQ TAB (K-DUR) PO SCH (06:00)
[2021-01-20] MEDS ORDERED: LEVOTHYROXINE 100 MCG (LEVOTHROID) TAB PO SCH (06:30)
[2021-01-20] MEDS ORDERED: LEVOTHYROXINE 75 MCG (LEVOTHROID) TABLET PO SCH (06:30)
--- NOTE | 2021-01-20 06:45 | Diagnostic Imaging Report ---
INDICATION: Altered mental status, illicit drug use Portable chest 3:27 AM Heart size and pulmonary vascularity are normal. Lungs are clear. There are no effusions or pneumothoraces. IMPRESSION: Negative chest Dictated by: Dictated on workstation # [id number]
[2021-01-20] MEDS: ENOXAPARIN 40 MG/0.4 ML (LOVENOX) SYR SC SCH (06:50)
[2021-01-20] MEDS ORDERED: HEParin (CATH LAB) 2,000 ML IV ONE (08:12)
[2021-01-20] MEDS ORDERED: NS IV 1000 ML 1,000 ML ONE (08:12)
[2021-01-20] MEDS ORDERED: LIDOCAINE 1% INJ 20 ML 20 ML VIAL ONE ×2 (08:12→08:47)
[2021-01-20] MEDS ORDERED: fentaNYL INJ 100 MCG/2 ML AMP ONE (08:48)
[2021-01-20] MEDS ORDERED: MIDAZOLAM 5 MG/5 ML (VERSED) VIAL ONE (08:48)
[2021-01-20] MEDS ORDERED: ASPIRIN 81 MG CHEW (CHILDREN'S ASA) PO SCH (09:00)
[2021-01-20] MEDS ORDERED: PATIENT MAY USE OWN MEDS, ALL PO SCH (09:45)
[2021-01-20] MEDS ORDERED: NS IV 1000 ML 1,000 ML IV SCH (09:45)
--- NOTE | 2021-01-20 09:45 | Progress Note - Cardiology ---
Cardiology SOAP Progress Note Subjective: Gen malaise No cp No palp or syncope since admission No shortness of breath at rest Objective: I&O/Vital Signs 01/19/21 01/19/21 01/19/21 01/20/21 22:00 23:00 23:59 00:00 Pulse 80 78 82 Resp 20 17 B/P (MAP) 115/69 (84) 125/69 (87) 119/63 (81) Pulse Ox 98 96 95 96 O2 Delivery Room Air Room Air Room Air Room Air 01/20/21 01/20/21 01/20/21 01/20/21 01:00 01:00 02:00 03:00 Pulse 63 66 70 73 Resp 16 12 20 B/P (MAP) 108/65 (79) 94/63 (73) 104/74 (84) Pulse Ox 97 96 96 O2 Delivery Room Air Room Air Room Air 01/20/21 01/20/21 01/20/21 01/20/21 04:00 04:00 05:00 06:00 Pulse 83 67 65 Resp 16 13 12 B/P (MAP) 122/77 (92) 109/62 (78) 98/68 (78) Pulse Ox 96 95 96 96 O2 Delivery Room Air Room Air Room Air Room Air 01/20/21 01/20/21 01/20/21 01/20/21 07:00 07:00 08:00 08:09 Pulse 65 69 76 Resp 13 20 B/P (MAP) 97/62 (74) 107/69 (82) Pulse Ox 97 95 O2 Delivery Room Air Room Air Room Air 01/20/21 08:12 Temp 36.2 01/19/21 23:59 Intake Total 400 ml Output Total 450 ml Balance -50 ml Weight (Pounds): 231 Weight (Ounces): 0.0 Weight (Calculated Kilograms): 104.799109 Constitutional: AAO x 3, well-developed, well-nourished Respiratory: No accessory muscle use, No respiratory distress; chest expansion is symmetric, chest is bilaterally symmetric, lungs clear to auscultation Cardiovascular: regular rate-rhythm; No JVD; S1 and S2 Gastrointestional: No tender; soft, round, audible bowel sounds Extremities: no lower extremity edema bilateral Neurologic/Psychiatric: grossly intact (moves all extremities) Skin: No rash on exposed areas, No ulcerations on exposed areas Results/Procedures: Labs Laboratory Tests 01/19/21 13:49: White Blood Count 5.7, Red Blood Count 4.69, Hemoglobin 14.9, Hematocrit 46, Mean Corpuscular Volume 98, Mean Corpuscular Hemoglobin 32, Mean Corpuscular Hemoglobin Concent 33, Red Cell Distribution Width 13.3, Platelet Count 359, Mean Platelet Volume 8.8L, Immature Granulocyte % (Auto) 0, Neutrophils (%) (Auto) 58, Lymphocytes (%) (Auto) 35, Monocytes (%) (Auto) 4, Eosinophils (%) (Auto) 2, Basophils (%) (Auto) 1, Neutrophils # (Auto) 3.3, Lymphocytes # (Auto) 2.0, Monocytes # (Auto) 0.2, Eosinophils # (Auto) 0.1, Basophils # (Auto) 0.0, Immature Granulocyte # (Auto) 0.0, Prothrombin Time 12.8, INR Comment 0.9, Activated Partial Thromboplast Time 33, D-Dimer < 0.27, Sodium Level 135, Potassium Level 4.0, Chloride Level 101, Carbon Dioxide Level 20L, Anion Gap 14, Blood Urea Nitrogen 15, Creatinine 1.33H, Estimat Glomerular Filtration Rate 41, BUN/Creatinine Ratio 11, Glucose Level 153H, Calcium Level 7.6L, Corrected Calcium 7.6L, Magnesium Level 2.3, Total Bilirubin 0.7, Aspartate Amino Transf (AST/SGOT) 49H, Alanine Aminotransferase (ALT/SGPT) 61H, Alkaline Phosphatase 82, Myoglobin 111.8H, Troponin I < 0.028, Total Protein 7.3, Albumin 4.0, Thyroid Stimulating Hormone (TSH) 151.09H, Free Thyroxine 0.40L, Salicylates Level < 5.0L, Acetaminophen Level < 10L, Serum Alcohol < 10 01/19/21 13:55: Urine Opiates Screen NEGATIVE, Urine Oxycodone Screen NEGATIVE, Urine Methadone Screen NEGATIVE, Urine Propoxyphene Screen NEGATIVE, Urine Barbiturates Screen NEGATIVE, Ur Tricyclic Antidepressants Screen NEGATIVE, Urine Phencyclidine Screen NEGATIVE, Urine Amphetamines Screen POSITIVEH, Urine Methamphetamines Screen POSITIVEH, Urine Benzodiazepines Screen NEGATIVE, Urine Cocaine Screen NEGATIVE, Urine Cannabinoids Screen POSITIVEH 01/20/21 00:25: White Blood Count 5.2, Red Blood Count 4.29, Hemoglobin 13.8, Hematocrit 41, Mean Corpuscular Volume 96, Mean Corpuscular Hemoglobin 32, Mean Corpuscular He moglobin Concent 34, Red Cell Distribution Width 13.2, Platelet Count 251, Mean Platelet Volume 8.9L, Immature Granulocyte % (Auto) 0, Neutrophils (%) (Auto) 61, Lymphocytes (%) (Auto) 31, Monocytes (%) (Auto) 5, Eosinophils (%) (Auto) 2, Basophils (%) (Auto) 1, Neutrophils # (Auto) 3.2, Lymphocytes # (Auto) 1.6, Monocytes # (Auto) 0.3, Eosinophils # (Auto) 0.1, Basophils # (Auto) 0.0, Immature Granulocyte # (Auto) 0.0, Sodium Level 136, Potassium Level 4.1, Chloride Level 104, Carbon Dioxide Level 17L, Anion Gap 15H, Blood Urea Nitrogen 16, Creatinine 0.99, Estimat Glomerular Filtration Rate 58, BUN/Creatinine Ratio 16, Glucose Level 85, Calcium Level 8.1L, Magnesium Level 2.3, Troponin I 0.428*H, Phosphorus Level 4.1, Triglycerides Level 111, Cholesterol Level 282H, LDL Cholesterol Direct 199H, VLDL Cholesterol 22, HDL Cholesterol 84H A/P: Assessment: SVT, 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 Rome) Echocardiogram of Aug [address] Rome showed LVEF 60%. PASP 25 mmhg Methamphetamine and marijuana abuse ( last usage 2 days ago) Hypothyroidism on lab of 01-19-21: - H/o thyroidectomy - has been non-compliant with thyroid replacement (followed by Dr. Hansen) H/o Non-Hodking's lymphoma - completed chemo in 2005 GERD Depression Plan: * Treat with dilt and ASA * Echo * Monitor labs * Advised to avoid tobacco and any street drug (including meth and marijuana) Clinical Quality Measures AMI/AHF: ASA po Prior to arrival: DAVID Rodríguez MD FACP FAC CCDS Jan 20, 2021 09:45
[2021-01-20] MEDS ORDERED: DILT240C91 PO (12:20)
[2021-01-20] MEDS ORDERED: ASPI81TA64 PO (12:20)
--- NOTE | 2021-01-20 12:23 | Discharge Summary ---
Discharge Summary Hospital Course Was the Problem List Reviewed?: Yes Problems/Dx: (1) Sustained SVT Status: Acute (2) Methamphetamine use Status: Acute Hospital Course Date of Admission: Jan 19, 2021 at 15:02 Admission Diagnosis : Family Physician/Provider: Jameel iLz DO Date of Discharge: 01/20/21 Discharge Diagnosis: SVT, meth use, Type 2 NSTEMI normal cath Hospital Course: VALERIE BETANCOURT MED STUDENT 01/20/21 1239: CC: SVT, Type II NSTEMI HPI: Ms. Gracia is a 55yoWF with history of gastric sleeve surgery, previous NHL with chemo treatment 2005, thyroidectomy non-compliant with replacement therapy, fibromyalgia, anxiety and PTSD, arthritis and HTN who presented to [facility] ED via EMS with complaint of several hours of shortness of breath, palpitations, lightheadedness and pain between her shoulder blades. SVT was noted on telemetry strips from EMS. Upon arrival vitals were stable, she was not hypoxic, CXR negative, troponin was initially negative and EKG showed normal sinus rhythm with ST depression V2 - V5. She admitted to recent meth and marijuana use 2 days ago after being clean for 16 years. She also reports she has not been taking her thyroid replacement for approx 2 months, but did take a dose yesterday. Patient was given Diltiazem to maintain rhythm control and admitted to ICU 12 from the ED. Subsequent troponin came back 0.428 and cardiac cath was performed; negative for any obstruction. She is stable today, RRR, with no complaints. Patient will be discharged with instructions to resume home medications including Levothyroxine, as well as Diltiazem and ASA as per cardiology. She has been advised to avoid tobacco and illicit drug use and return to ED if symptoms return. Labs and Pending Lab Test: Laboratory Tests 01/19/21 13:49: White Blood Count 5.7, Red Blood Count 4.69, Hemoglobin 14.9, Hematocrit 46, Mean Corpuscular Volume 98, Mean Corpuscular Hemoglobin 32, Mean Corpuscular Hemoglobin Concent 33, Red Cell Distribution Width 13.3, Platelet Count 359, Mean Platelet Volume 8.8L, Immature Granulocyte % (Auto) 0, Neutrophils (%) (Au to) 58, Lymphocytes (%) (Auto) 35, Monocytes (%) (Auto) 4, Eosinophils (%) (Auto) 2, Basophils (%) (Auto) 1, Neutrophils # (Auto) 3.3, Lymphocytes # (Auto) 2.0, Monocytes # (Auto) 0.2, Eosinophils # (Auto) 0.1, Basophils # (Auto) 0.0, Immature Granulocyte # (Auto) 0.0, Prothrombin Time 12.8, INR Comment 0.9, Activated Partial Thromboplast Time 33, D-Dimer < 0.27, Sodium Level 135, Potassium Level 4.0, Chloride Level 101, Carbon Dioxide Level 20L, Anion Gap 14, Blood Urea Nitrogen 15, Creatinine 1.33H, Estimat Glomerular Filtration Rate 41, BUN/Creatinine Ratio 11, Glucose Level 153H, Calcium Level 7.6L, Corrected Calcium 7.6L, Magnesium Level 2.3, Total Bilirubin 0.7, Aspartate Amino Transf (AST/SGOT) 49H, Alanine Aminotransferase (ALT/SGPT) 61H, Alkaline Phosphatase 82, Myoglobin 111.8H, Troponin I < 0.028, Total Protein 7.3, Albumin 4.0, Thyroid Stimulating Hormone (TSH) 151.09H, Free Thyroxine 0.40L, Salicylates Le nixon < 5.0L, Acetaminophen Level < 10L, Serum Alcohol < 10 01/19/21 13:55: Urine Opiates Screen NEGATIVE, Urine Oxycodone Screen NEGATIVE, Urine Methadone Screen NEGATIVE, Urine Propoxyphene Screen NEGATIVE, Urine Barbiturates Screen NEGATIVE, Ur Tricyclic Antidepressants Screen NEGATIVE, Urine Phencyclidine Screen NEGATIVE, Urine Amphetamines Screen POSITIVEH, Urine Methamphetamines Screen POSITIVEH, Urine Benzodiazepines Screen NEGATIVE, Urine Cocaine Screen NEGATIVE, Urine Cannabinoids Screen POSITIVEH 01/20/21 00:25: White Blood Count 5.2, Red Blood Count 4.29, Hemoglobin 13.8, Hematocrit 41, Mean Corpuscular Volume 96, Mean Corpuscular Hemoglobin 32, Mean Corpuscular Hemoglobin Concent 34, Red Cell Distribution Width 13.2, Platelet Count 251, Mean Platelet Volume 8.9L, Immature Granulocyte % (Auto) 0, Neutrophils (%) (Auto) 61, Lymphocytes (%) (Auto) 31, Monocytes (%) (Auto) 5, Eosinophils (%) (Auto) 2, Basophils (%) (Auto) 1, Neutrophils # (Auto) 3.2, Lymphocytes # (Auto) 1.6, Monocytes # (Auto) 0.3, Eosinophils # (Auto) 0.1, Basophils # (Auto) 0.0, Immature Granulocyte # (Auto) 0.0, Sodium Level 136, Potassium Level 4.1, Chloride Level 104, Carbon Dioxide Level 17L, Anion Gap 15H, Blood Urea Nitrogen 16, Creatinine 0.99, Estimat Glomerular Filtration Rate 58, BUN/Creatinine Ratio 16, Glucose Level 85, Calcium Level 8.1L, Magnesium Level 2.3, Troponin I 0.428*H, Phosphorus Level 4.1, Triglycerides Level 111, Cholesterol Level 282H, LDL Cholesterol Direct 199H, VLDL Cholesterol 22, HDL Cholesterol 84H 01/20/21 11:26: Glucometer 99 Home Meds Active Children's Aspirin (Aspirin) 81 Mg Tab.chew 81 Mg PO DAILY@0900 Diltiazem 24Hr ER (Diltiazem HCl) 240 Mg Cap.er.24h 240 Mg PO DAILY Cyclobenzaprine HCl 10 Mg Tablet 10 Mg PO TID PRN Oxycodone-Acetaminophen 10-325 (Oxycodone HCl/Acetaminophen) 1 Each Tablet 1 Tab PO Q6H PRN Reported Vitamin D3 (Cholecalciferol (Vitamin D3)) 1,000 Unit Tablet 1,000 Unit PO DAILY B-12 (Cyanocobalamin (Vitamin B-12)) 5,000 Mcg/1 Ml Drops 5,000 Mcg SL Q48H Centrum Silver Women Tablet (Multivits-Min/Iron/FA/Lutein) 1 Each Tablet 1 Tab PO DAILY Pantoprazole Sodium 40 Mg Tablet.dr 40 Mg PO DAILY Levothyroxine Sodium 175 Mcg Tablet 175 Mcg PO DAILY Alprazolam 2 Mg Tablet 2 Mg PO Q8H PRN Gabapentin 400 Mg Capsule 1,200 Mg PO Q8H TAKES 3 (400MG) CAPSULES Assessment/Pt Instructions CHC 1 week Discharge Planning: <30 minutes discharge planning Discharge Instructions Discharge Diet: No Restrictions Activity as Tolerated: Yes Discharge Physical Examination Vital Signs Vital Signs Date Time Temp Pulse Resp B/P (MAP) Pulse Ox O2 Delivery O2 Flow Rate FiO2 01/20/21 12:00 68 116/76 (89) 99 Room Air 01/20/21 11:39 36.2 01/20/21 08:00 20 01/19/21 16:20 4.00 General Appearance: No Apparent Distress, WD/WN, Chronically ill Respiratory: Lungs Clear Cardiovascular: Regular Rate, Rhythm Neurologic/Psychiatric: Alert, Oriented x3 Allergies: Coded Allergies: fentanyl (Unverified Adverse Reaction, Mild, 08/02/16) PATIENT DENIES ALLERGY TO FENTANYL. STATES, "I WORE THE PATCHES AFTER MY GASTRIC SLEEVE SURGERY AND IT WAS FINE. THEY HAD GIVEN ME SEVERAL INJECTION FORMS AND I HAD A CRUSHING HEADACHE FROM THE INJECTION FORM." Uncoded Allergies: tape (Adverse Reaction, Severe, broke out--went to er 2x---, 09/11/16) Discharge Summary Date of Admission Jan 19, 2021 at 15:02 Date of Discharge Discharge Date: Jan 20, 2021 Admission Diagnosis Assessment: SVT Meth use Plan: Supportive care Clinical Quality Measures AMI/AHF: ASA po Prior to arrival: SONIDO Manriquez DO Jan 20, 2021 12:23
[2021-01-20] MEDS ORDERED: LEVO125T6 PO (12:29)
--- NOTE | 2021-01-20 12:39 | Progress Note ---
VALERIE BETANCOURT MED STUDENT 01/20/21 1239: Progress Note CC: SVT, Type II NSTEMI HPI: Ms. Garcia is a 55yoWF with history of gastric sleeve surgery, previous NHL with chemo treatment 2005, thyroidectomy non-compliant with replacement therapy, fibromyalgia, anxiety and PTSD, arthritis and HTN who presented to [facility] ED via EMS with complaint of several hours of shortness of breath, palpitations, lightheadedness and pain between her shoulder blades. SVT was noted on telemetry strips from EMS. Upon arrival vitals were stable, she was not hypoxic, CXR negative, troponin was initially negative and EKG showed normal sinus rhythm with ST depression V2 - V5. She admitted to recent meth and marijuana use 2 days ago after being clean for 16 years. She also reports she has not been taking her thyroid replacement for approx 2 months, but did take a dose yesterday. Patient was given Diltiazem to maintain rhythm control and admitted to ICU 12 from the ED. Subsequent troponin came back 0.428 and cardiac cath was performed; negative for any obstruction. She is stable today, RRR, with no complaints. Patient will be discharged with instructions to resume home medications including Levothyroxine, as well as Diltiazem and ASA as per cardiology. She has been advised to avoid tobacco and illicit drug use and return to ED if symptoms return. JESUSITA SHEPHERD DO 01/20/212110: Supervisory-Addendum Brief Verification & Attestation Participated in pt care: history, MDM, physical Personally performed: exam, history, MDM, supervision of care Care discussed with: Medical Student Procedures: n/a Results interpretation: Verified all documentation Verification and Attestation of Medical Student E/M Service A medical student performed and documented this service in my presence. I review ed and verified all information documented by the medical student and made modifications to such information, when appropriate. I personally performed the physical exam and medical decision making. Jesusita Shepherd, Jan 20, 2021,21:11 VALERIE BETANCOURT MED STUDENT Jan 20, 2021 12:39 JESUSITA SHEPHERD DO Jan 20, 2021 21:11
[2021-01-20 16:36] VITALS: BP 132/110
== END 2021-01-20 16:40 | disposition home or self-care (01) | DRG 281 ==
LOC: EDUNIT# 13:43 → ER 13:44 → ICU 15:02
PROVIDERS: ADMIT Internal Medicine; ATTEND Internal Medicine
DX: I47.1 Supraventricular tachycardia (principal); I21.A1 Myocardial infarction type 2; Z68.42 Body mass index [BMI] 45.0-49.9, adult; F15.10 Other stimulant abuse, uncomplicated; F12.10 Cannabis abuse, uncomplicated; E89.0 Postprocedural hypothyroidism; I10 Essential (primary) hypertension; M19.90 Unspecified osteoarthritis, unspecified site; M79.7 Fibromyalgia; G89.29 Other chronic pain; M54.9 Dorsalgia, unspecified; F41.9 Anxiety disorder, unspecified; F43.10 Post-traumatic stress disorder, unspecified; I25.10 Atherosclerotic heart disease of native coronary artery without angina pectoris; K21.9 Gastro-esophageal reflux disease without esophagitis; F32.9 Major depressive disorder, single episode, unspecified; E66.9 Obesity, unspecified; Z87.891 Personal history of nicotine dependence; Z85.72 Personal history of non-Hodgkin lymphomas; Z92.21 Personal history of antineoplastic chemotherapy
CPT/HCPCS: 36415; 51702; 71045; 80048; 80053; 80061; 80306; 80320; 80329; 82962; 83735; 83874; 84100; 84439; 84443; 84484; 85025; 85379; 85610; 85730; 87081; 93005; 93041; 93306; 93458

== ENCOUNTER 2022-03-19 08:58 | Emergency (ER) | payer MEDICARE, MEDICAID ==
[~2022-03-19] VITALS: Ht 167 cm; Wt 140.0 kg
[~2022-03-19 08:58] MED LIST changes: +ASPI81TA64 PO; +CYCL10TA25 PO; -CYCL10TA9 PO; +DILT240C91 PO; +LEVO125T6 PO
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
[2022-03-19 09:30] LABS: BASOPHILS % (AUTO) 0 % (0-10); EOSINOPHILS # (AUTO) 0.1 10^3/uL (0.0-0.3); EOSINOPHILS % (AUTO) 2 % (0-10); HEMATOCRIT 39 % (35-52); HEMOGLOBIN 12.3 g/dL (11.5-16.0); LYMPHOCYTES # (AUTO) 1.4 10^3/uL (1.0-4.0); LYMPHOCYTES % (AUTO) 31 % (12-44); MEAN CORPUSCULAR HEMOGLOBIN 30 pg (25-34); MEAN CORPUSCULAR HGB CONC 32 g/dL (32-36); MEAN CORPUSCULAR VOLUME 95 fL (80-99); MEAN PLATELET VOLUME 9.9 fL (9.0-12.2); MONOCYTES # (AUTO) 0.4 10^3/uL (0.0-1.0); MONOCYTES % (AUTO) 8 % (0-12); NEUTROPHILS # (AUTO) 2.7 10^3/uL (1.8-7.8); NEUTROPHILS % (AUTO) 59 % (42-75); PLATELET COUNT 256 10^3/uL (130-400); WHITE BLOOD COUNT 4.5 10^3/uL (4.3-11.0)
[2022-03-19] MEDS ORDERED: KETOROLAC 30 MG/ML VIAL IVP ONE (09:30)
[2022-03-19 09:35] LABS: INR 0.9 (0.8-1.4)
[2022-03-19 09:37] LABS: ALBUMIN 3.4 GM/DL (3.2-4.5)
[2022-03-19 09:38] LABS: POTASSIUM 4.1 MMOL/L (3.6-5.0)
[2022-03-19 09:39] LABS: CALCIUM 7.4 MG/DL (8.5-10.1)
[2022-03-19 09:40] LABS: TOTAL PROTEIN 6.4 GM/DL (6.4-8.2)
[2022-03-19 09:42] LABS: BILIRUBIN,TOTAL 0.4 MG/DL (0.1-1.0)
[2022-03-19 09:44] LABS: CREATININE SERUM 0.76 MG/DL (0.60-1.30)
[2022-03-19 09:47] LABS: MAGNESIUM 1.9 MG/DL (1.6-2.4)
--- NOTE | 2022-03-19 10:04 | Diagnostic Imaging Report ---
PATIENT HISTORY: Chest pain. TECHNIQUE: Two views of the chest. COMPARISON: CT from 03/21/2018. Chest x-ray from 01/20/2021. FINDINGS: The lung volumes are normal. No focal consolidation is seen. No large pleural effusion or pneumothorax is seen. The cardiomediastinal silhouette is normal in size and contour. No acute osseous abnormality is seen. IMPRESSION: No acute pulmonary abnormality seen. Dictated by: Dictated on workstation # [id number]
[2022-03-19] MEDS ORDERED: HYDROcodone/APAP 5 MG/325 MG (LORTAB) TAB PO ONE (12:15)
[2022-03-19 13:51] VITALS: BP 119/83
== END 2022-03-19 13:51 | disposition home or self-care (01) ==
LOC: EDUNIT# 08:58 → ER 08:59
DX: R07.9 Chest pain, unspecified (principal)
CPT/HCPCS: 36415; 71046; 80053; 83735; 83874; 84484; 85025; 85610; 85730; 93005; 93041

== ENCOUNTER → 2022-12-06 | Outpatient (CLI) | payer MEDICAID, MEDICARE, OTHER ==
--- NOTE | 2022-12-06 19:47 | Diagnostic Imaging Report ---
INDICATION: Screening. EXAMINATION: 3D bilateral screening mammogram with CAD. The current study was also evaluated with a Computer Aided Detection (CAD) system. COMPARISON: This study was compared to the prior exams of 05/31/2020 and 08/27/2017. At this time there are no current complaints. FINDINGS: The breasts are predominantly fatty. The small nodules in both breasts seen previously are again evident and do not appear to have changed significantly with the exception of a small 5 mm dense nodule in the 6 o'clock position of the right breast at middle depth. I suspect that this is most likely a benign process. Even so, I would recommend that ultrasound be performed for further study. There is no primary or secondary sign of malignancy noted otherwise. IMPRESSION: Ultrasound of the right breast would be recommended for further study. ACR BI-RADS Category 0: Incomplete. (Needs additional imaging evaluation). Result letter will be mailed to the patient. Note: At least 10% of breast cancer is not imaged by mammography. Dictated by: Dictated on workstation # [id number]
== END ==
LOC: RAD 09:35
PROVIDERS: ATTEND Nurse Practitioner Family
DX: Z12.31 Encounter for screening mammogram for malignant neoplasm of breast (principal)
CPT/HCPCS: 77063; 77067

== ENCOUNTER → 2022-12-24 | Outpatient (CLI) | payer MEDICARE, MEDICAID ==
--- NOTE | 2022-12-24 15:19 | Diagnostic Imaging Report ---
INDICATION: Abnormal mammogram demonstrating new 5 mm nodule at the 6 o'clock location of the right breast. Study is performed for further evaluation. Correlation is made with screening mammogram from 12/06/2022. Sonographic interrogation of the inferior right breast was performed. No sonographic abnormality is seen. No solid or cystic masses detected. IMPRESSION: No sonographic abnormality is identified to account for the mammographic density. Mammographic density appears to be fairly benign. Even so, followup right mammogram in 6 months is recommended to show continued stability. Dictated by: Dictated on workstation # [id number]
== END ==
LOC: RAD 13:27
PROVIDERS: ATTEND Nurse Practitioner Family
DX: N63.15 Unspecified lump in the right breast, overlapping quadrants (principal)
CPT/HCPCS: 76641